=== PATIENT | female | born 1960 | race Hispanic/Latino ===

== ENCOUNTER 2016-06-01 01:51 | Inpatient (IN) | payer MEDICAID, MEDICARE ==
[2016-06-01] MEDS ORDERED: Sodium Chloride 0.9% 1,000 ML IV ONE (02:12)
[2016-06-01] MEDS ORDERED: Vancomycin 1gm in NS 250ml 250 ML IVPB STA (02:12)
[2016-06-01] MEDS ORDERED: Piperacill/Tazo 4.5gm in NS 100 ML IVPB STA (02:12)
[2016-06-01] MEDS ORDERED: Albuterol-Ipratrop 3 mg / 0.5 (3 ml) UD IH STA (02:23)
[2016-06-01] MEDS ORDERED: Albuterol 0.083% Inhal Sol (2.5 mg/3 mL) UD IH STA (02:23)
--- NOTE | 2016-06-01 02:27 | ED PDOC ---
Arrival/HPI - General Time Seen by Provider: 06/01/16 02:00 Historian: EMS EM Caveat: Acuity of Condition - Critical Care Critical Care Minutes: 60 minutes Critical Care Time: Excluding Proc Time - History of Present Illness Narrative History of Present Illness (Text): 06/01/16 02:08 55 year old female whose past medical history includes COPD presents to the Emergency department via EMS for cardiac arrest. Per EMS, patient was in cardiac arrest for 10 minutes prior to EMS arrival and 37 minutes while with EMS. Patient regained pulse at 1:47am. Per EMS, patient was asystole and given 4 rounds epinephrine. She was then vfib and shocked by EMS. EMS reports [employer] patient was given 300mg amiodarone IV, 4 duoneb, 2g magnesium sulfate, 50mg sodium bicarbonate. HPI and ROS limited due to patient's acuity of condition. PMD: Does not come to [place] Past Medical History - Provider Review Nursing Documentation Reviewed: Yes - Infectious Disease Hx of Infectious Diseases: MRSA - Tetanus Immunization Tetanus Immunization: Unknown - Past Medical History Past Medical History: No Previous - Cardiac Hx Hypertension: Yes - Pulmonary Hx Asthma: Yes Hx Bronchitis: Yes Hx Chronic Obstructive Pulmonary Disease (COPD): Yes Hx Emphysema: Yes - Neurological Hx Neurological Disorder: No - HEENT Hx HEENT Disorder: Yes Other/Comment: sinus sx x 2, removal of septum, removal of sinus tissue on L side - Renal Hx Renal Disorder: No - Endocrine/Metabolic Hx Hypothyroidism: Yes - Hematological/Oncological Hx Hepatitis B: No (states she had a false positive test x 1) - Integumentary Hx Dermatological Disorder: No - Musculoskeletal/Rheumatological Hx Falls: No Hx Rheumatoid Arthritis: Yes - Gastrointestinal Hx Diverticulitis: Yes - Genitourinary/Gynecological Hx Genitourinary Disorders: No - Psychiatric Hx Psychophysiologic Disorder: No Hx Anxiety: No Hx Bipolar Disorder: No Hx Depression: No Hx Emotional Abuse: No Hx Hallucinations: No Hx Panic Disorder: No Hx Post Traumatic Stress Disorder: No Hx Psychosis: No Hx Physical Abuse: No Hx Schizophrenia: No Hx Sexual Abuse: No Hx Substance Use: No - Surgical History Hx Appendectomy: Yes Hx Cholecystectomy: Yes Hx Orthopedic Surgery: Yes - Anesthesia Hx Anesthesia Reactions: No Hx Malignant Hyperthermia: No - Suicidal Assessment Feels Threatened In Home Enviroment: No Family/Social History - Physician Review Nursing Documentation Reviewed: Yes Family/Social History: Unknown Family HX Smoking Status: Former Smoker Hx Alcohol Use: No Hx Substance Use: No Hx Substance Use Treatment: No Allergies/Home Meds Allergies/Adverse Reactions: Allergies No Known Allergies Allergy (Verified 06/01/16 01:54) Review of Systems - Physician Review All systems were reviewed & negative as marked: Yes - Review of Systems Systems not reviewed;Unavailable: Acuity of Condition Respiratory: SOB Cardiovascular: Other (+cardiac arrest) Physical Exam Vital Signs Reviewed: Yes Vital Signs Temp Pulse Pulse Resp BP Pulse Ox 06/01/16 03:37 109 H 18 144/74 100 06/01/16 03:30 97.9 F 06/01/16 02:10 110 H 06/01/16 01:55 101 H 20 49/24 L Temperature: Afebrile Blood Pressure: Hypotensive Pulse: Tachycardic Respiratory Rate: Normal Appearance: Positive for: Non-Toxic Pain Distress: None - Systems Exam Head: Present: Atraumatic, Normocephalic Conjunctiva: Present: Normal Mouth: Present: Moist Mucous Membranes Neck: Present: Normal Range of Motion Respiratory/Chest: Present: Good Air Exchange, Wheezes (bilateral), Other (+6.5 ET tube with good condensation). No: Respiratory Distress, Accessory Muscle Use , Rales, Rhonchi Cardiovascular: Present: Tachycardic, Other (+faint right femoral pulse). No: Murmurs, Rub, Gallop Abdomen: Present: Normal Bowel Sounds. No: Tenderness, Distention, Peritoneal Signs, Rebound, Guarding Back: Present: Normal Inspection Upper Extremity: Present: Normal Inspection. No: Cyanosis, Edema Lower Extremity: Present: Normal Inspection. No: Edema Neurological: Present: GCS=15, CN II-XII Intact Skin: Present: Warm, Dry, Normal Color. No: Rashes Medical Decision Making ED Course and Treatment: 06/01/16 02:40 Impression: 55 year old female presents for cardiac arrest. Patient hypotensive, tachycardic , faint right femoral pulse, wheezes b/l, ET tube in place with fair air entry. Differential Diagnosis included but are not limited to: Plan: --EKG --Chest X-ray --procalcitonin serum --albuterol, duoneb, solumedrol, vancomycin, zosyn --blood culture, urine culture -- Reassess and disposition Prior Visits: Notes and results from previous visits were reviewed. Progress Notes: 06/01/16 02:[address] Quijano, loom doffer, who accepted her to ICU. 06/01/16 03:02 Patient's eyes opening and twitching as her upper body twitches every 5-10 seconds. 2mg Narcan IV given and soon she started getting b/l pupil dilation. 2mg ativan IV given for twitching episodes which helped resolve twitches moderately. Patient on versed drip. Discussed with family who state patient has been experiencing shortness of breath and cough for 4 days. [place] [facility] [place] apparently treated for a lung infection. Family states patient's breathing has been worsening and they asked patient to come to hospital but patient didn't want to come. They are unsure if she took benzos at home and are concerned because patient has a history of overdose. Also, they report she took a whole bottle of cough syrup with codeine. 06/01/16 03:10 Patient's pH low and treated with Bicarb amps x 2. Patient on ventilator of TV 500, RR 18, 100% reduced to 60% FiO2 after ABG, Peep 5. Patient receiving continues IVF and is currently on Levophed titrated. 06/01/16 04:15 Spoke to Bib (gelatin powder mixer) who recommended repeating EKG because patient was given sodium bicarbonate to evaluate QRS response. He also recommends 4 hr repeat LFTs and Acetaminophen level. Patient is already in the ICU, Dr. Quijano aware of plan and will repeat EKG. - Critical Care Critical Care Minutes: 60 minutes - Lab Interpretations Lab Results: 06/01/16 02:30 06/01/16 02:30 Lab Results 06/01/16 02:30: WBC 22.2 H D, RBC 3.66, Hgb 10.8 L, Hct 35.3 L, MCV 96.4, MCH 29.5, MCHC 30.6 L, RDW 15.8 H, Plt Count 432, MPV 9.2, Gran % 60.9, Lymph % ( Auto) 30.5, [place] % (Auto) 5.7, Eos % (Auto) 2.5, Baso % (Auto) 0.4, Gran # 13.54 H, Lymph # 6.8 H, [place] # 1.3 H, Eos # 0.6, Baso # 0.09, PT 12.1 H, INR 1.12 H, APTT 32.0 H, pCO2 71 H*, pO2 39, HCO3 18.8 L, ABG pH 7.03 L*, ABG Total CO2 21.0 L, ABG O2 Saturation 100.3 H, ABG O2 Content 16.8, ABG Base Excess - 12.5 L, ABG Hemoglobin 11.3 L, ABG Carboxyhemoglobin 2.1 H, POC ABG HHb ( Measured) -0.3 L, ABG Methemoglobin 1.3, ABG O2 Capacity 16.7, VBG pH 6.92 L*, VBG pCO2 101.0 H*, VBG HCO3 20.7 L, VBG Total CO2 23.8, VBG O2 Sat (Calc) 60.4, VBG Base Excess -13.9 L, VBG Potassium 5.8 H, Hgb O2 Saturation 97.0, Glucose 300 H, Lactate 9.5 H*, FiO2 21.0, Sodium 141.0, Potassium 5.5 H, Chloride 102.0 , Carbon Dioxide 24, Anion Gap 21 H, BUN 14, Creatinine 1.7 H, Est GFR ( Amer) 38, Est GFR (Non-Af Amer) 31, Random Glucose 285 H, Calcium 9.2, Phosphorus 12.4 H, Magnesium 3.6 H, Total Bilirubin 0.5, AST 131 H, ALT 48, Alkaline Phosphatase 130, Troponin I 0.06 D, NT-Pro-B Natriuret Pep 85.1, Total Protein 6.4, Albumin 3.5, Globulin 2.9, Albumin/Globulin Ratio 1.2, Venous Blood Potassium 5.8 H, Salicylates < 1 L, Acetaminophen < 10.0 L, Alcohol , Quantitative < 10 I have reviewed the lab results: Yes - RAD Interpretation Narrative RAD Interpretations (Text): 06/01/16 02:42 Chest X-ray Impression as read by ED physician: ET tube above jose, no PNA Radiology Orders: 06/01/16 02:12 CHEST PORTABLE [RAD] Stat Media Executive: ED Physician, Radiologist - EKG Interpretation EKG Interpretation (Text): 06/01/16 02:42 EKG: Ordered, reviewed, and independently interpreted the EKG. Rate : 110 BPM Rhythm : sinus tachycardia Interpretation : perfusion wave complex; RBBB Interpreted by ED Physician: Yes Type: 12 lead EKG - Medication Orders Current Medication Orders: Norepinephrine Bitartrate 4 mg (/ Sodium Chloride) 254 mls @ 19.05 mls/hr IV .[id number] PRN; Protocol; 5 MCG/MIN PRN Reason: TITRATE PER MD ORDER Last Admin: 06/01/16 03:19 Dose: 19.05 MLS/HR Titration Intervention Document 06/01/16 03:19 RD (Rec: 06/01/16 03:19 RD [id number]) Titration Intake Container Volume 254 Titration Dosing Titration Dose 5 IV Rate 19.05 Intake/Decrease Start eMAR Start Stop Document 06/01/16 03:19 RD (Rec: 06/01/16 03:19 RD [id number]) Intravenous Solution Start Date 06/01/16 Start Time 02:00 Midazolam 100 mg/100ml in NS (Midazolam 100 Mg/100ml In Ns) 100 mls @ 1 mls/hr IV .Q24H PRN; Protocol; 1 MG/HR PRN Reason: Sedation Last Admin: 06/01/16 03:10 Dose: 1 MLS/HR Titration Intervention Document 06/01/16 03:10 RD (Rec: 06/01/16 03:13 RD [id number]) Titration Intake Container Volume 100 Titration Dosing Titration Dose 1 IV Rate 1 Intake/Decrease Start eMAR Start Stop Document 06/01/16 03:10 RD (Rec: 06/01/16 03:13 RD [id number]) Intravenous Solution Start Date 06/01/16 Start Time 03:10 Sodium Bicarbonate 50 meq/ (Sodium Chloride) 1,050 mls @ 125 mls/hr IV .Q8H24M YASSINE Vancomycin HCl (Vancomycin 1gm) 250 mls @ 167 mls/hr IVPB Q12H YASSINE PRN Reason: Protocol Piperacillin Sod/Tazobactam Sod (Zosyn 3.375 In Ns 100ml) 100 mls @ 200 mls/hr IVPB Q6H YASSINE PRN Reason: Protocol Stop: 06/01/16 16:29 Discontinued Medications Albuterol Sulfate (Albuterol 0.083% Inhal Yesenia (2.5 Mg/3 Ml) Ud) 2.5 mg IH STAT STA Stop: 06/01/16 02:24 Last Admin: 06/01/16 01:55 Dose: 2.5 MG Albuterol/Ipratropium (Duoneb 3 Mg/0.5 Mg (3 Ml) Ud) 3 ml IH STAT STA Stop: 06/01/16 02:24 Last Admin: 06/01/16 01:51 Dose: 3 ML Sodium Chloride (Sodium Chloride 0.9%) 1,000 mls @ 2,000 mls/hr IV .Q30M ONE Stop: 06/01/16 02:41 Last Admin: 06/01/16 01:51 Dose: 2,000 MLS/HR eMAR Start Stop Document 06/01/16 01:51 RD (Rec: 06/01/16 03:21 RD [id number]) Intravenous Solution Start Date 06/01/16 Start Time 01:51 Piperacillin Sod/Tazobactam Sod (Zosyn 4.5 Gm In Ns 100ml) 100 mls @ 200 mls/ hr IVPB STAT STA PRN Reason: Protocol Stop: 06/01/16 02:41 Last Admin: 06/01/16 03:38 Dose: 200 MLS/HR eMAR Start Stop Document 06/01/16 03:38 RD (Rec: 06/01/16 03:38 RD [id number]) Intravenous Solution Start Date 06/01/16 Start Time 03:38 End Date 06/01/16 End time 04:08 Total Infusion Time 30 Vancomycin HCl (Vancomycin 1gm) 250 mls @ 167 mls/hr IVPB STAT STA PRN Reason: Protocol Stop: 06/01/16 03:41 Sodium Chloride 2,180 ml/ IV (SUPPLIES) 2,180 mls @ 4,354.5 mls/hr IV ONCE ONE PRN Reason: 60 ML/KG/HR Stop: 06/01/16 02:48 Last Admin: 06/01/16 03:23 Dose: 4,354.5 MLS/HR eMAR Start Stop Document 06/01/16 03:23 RD (Rec: 06/01/16 03:24 RD [id number]) Intravenous Solution Start Date 06/01/16 Start Time 03:24 Lorazepam (Ativan) 2 mg IVP ONCE ONE PRN Reason: Protocol Stop: 06/01/16 02:57 Last Admin: 06/01/16 03:04 Dose: 2 MG Behavioural Document 06/01/16 03:04 RD (Rec: 06/01/16 03:26 RD [id number]) Maintenance Maintenance Dose Yes IVP Administration Document 06/01/16 03:04 RD (Rec: 06/01/16 03:26 RD [id number]) Charges for Administration # of IVP Administrations 1 Lorazepam (Ativan) 2 mg IVP ONCE ONE PRN Reason: Protocol Stop: 06/01/16 03:38 Last Admin: 06/01/16 03:41 Dose: 2 MG Behavioural Document 06/01/16 03:41 RD (Rec: 06/01/16 03:42 RD [id number]) Maintenance Maintenance Dose Yes IVP Administration Document 06/01/16 03:41 RD (Rec: 06/01/16 03:42 RD [id number]) Charges for Administration # of IVP Administrations 1 Methylprednisolone (Solu-Medrol) 125 mg IVP STAT STA Stop: 06/01/16 02:15 Last Admin: 06/01/16 01:51 Dose: 125 MG IVP Administration Document 06/01/16 01:51 RD (Rec: 06/01/16 03:20 RD [id number]) Charges for Administration # of IVP Administrations 1 Naloxone HCl (Narcan) 2 mg IVP STAT STA Stop: 06/01/16 02:49 Last Admin: 06/01/16 03:25 Dose: Naloxone HCl (Narcan) Confirm Administered Dose 2 mg .ROUTE .STK-MED ONE Stop: 06/01/16 02:54 Last Admin: 06/01/16 02:50 Dose: 2 MG Sodium Bicarbonate (Sodium Bicarbonate (8.4%) 50 Meq Syringe) 50 meq IVP ONCE STA Stop: 06/01/16 03:06 Last Admin: 06/01/16 03:42 Dose: 50 MEQ IVP Administration Document 06/01/16 03:42 RD (Rec: 06/01/16 03:42 RD [id number]) Charges for Administration # of IVP Administrations 1 - Procedure PROCEDURE NOTE (Text): 06/01/16 04:12 PROCEDURE: CENTRAL LINE PLACEMENT Performed by the emergency provider Time: 02:00 Consent: Discussion of the risks, benefits, and alternatives to the procedure, along with informed consent was precluded by the urgency of the procedure and the patient condition. Timeout: A timeout to verify the correct patient, procedure, and site was performed. Indication: Cardiac arrest Anesthesia:none Skin Preparation: Hand hygiene performed prior to central venous catheter insertion. Sterile field, sterile drape, sterile technique, and cap and gown were used. The area was cleansed with 2% Chlorhexidine. Patient position: supine Location: right femoral Ultrasound guidance: No Technique: The landmarks for the line placement were identified. The vessel was cannulated and a non-tunneled femoral triple lumen was placed using the Seldinger technique. Successful placement: Yes. Line sutured and appropriate dressing applied. Assessment: Good patency and blood return through all three lumens. The ports were appropriately flushed. Post-procedure: Patient tolerated the procedure well with no immediate complications. - Scribe Statement The provider has reviewed the documentation as recorded by the Scribe Catrina Vieyra Provider Scribe Attestation: All medical record entries made by the Scribe were at my direction and personally dictated by me. I have reviewed the chart and agree that the record accurately reflects my personal performance of the history, physical exam, medical decision making, and the department course for this patient. I have also personally directed, reviewed, and agree with the discharge instructions and disposition. Disposition/Present on Arrival - Present on Arrival Any Indicators Present on Arrival: No History of DVT/PE: No History of Uncontrolled Diabetes: No Urinary Catheter: Yes (inserted in er) History Surgical Site Infection Following: None - Disposition Have Diagnosis and Disposition been Completed?: Yes Diagnosis: Chronic obstructive pulmonary disease with acute exacerbation, Cardiac arrest, Sepsis Disposition: HOSPITALIZED Disposition Time: 02:38 Patient Plan: Admission Patient Problems: Current Active Problems Problem Status Diagnosed Cardiac arrest Acute Chronic obstructive pulmonary disease with acute exacerbation Acute Sepsis Acute Condition: CRITICAL
[2016-06-01 02:37] LABS: ARTERIAL BLOOD GAS HCO3 18.8 mmol/L (21-28); ARTERIAL BLOOD GAS O2 CAPACITY 16.7 mL/dl (16-24); ARTERIAL BLOOD GAS O2 CONTENT 16.8 ML/dl (15-23); CARBOXYHEMOGLOBIN 2.1 % (0.5-1.5); HHB -0.3 % (0-5); METHEMOGLOBIN 1.3 % (0.0-3.0)
[2016-06-01 02:39] LABS: ADD MANUAL DIFF? NO; ARTERIAL BLOOD GAS PH 7.03 (7.35-7.45)
[2016-06-01 02:43] LABS: VENOUS BLOOD GAS BASE EXCESS -13.9 mmol/L (0.0-2.0)
[2016-06-01 02:46] LABS: VENOUS BLOOD PH 6.92 (7.32-7.43)
[2016-06-01 02:47] LABS: BASO # 0.09 K/mm3 (0.0-2.0); BASO % 0.4 % (0.0-3.0); EOS # 0.6 (0.0-0.7); EOS % 2.5 % (1.5-5.0); GRAN # 13.54 (1.4-6.5); GRAN % 60.9 % (50.0-68.0); HEMATOCRIT 35.3 % (36.0-48.0); LYMPH # 6.8 (1.2-3.4); LYMPH % 30.5 % (22.0-35.0); MEAN CELL VOLUME 96.4 fL (80.0-105.0); MEAN CORPUSCULAR HEMOGLOBIN 29.5 pg (25.0-35.0); MEAN CORPUSCULAR HGB CONC 30.6 g/dl (31.0-37.0); MEAN PLATELET VOLUME 9.2 fl (7.0-11.0); MONO # 1.3 (0.1-0.6); MONO % 5.7 % (1.0-6.0); PLATELET COUNT 432 10^3/uL (120.0-450.0); RED CELL DISTRIBUTION WIDTH 15.8 % (11.5-14.5); WHITE BLOOD COUNT 22.2 10^3/ul (4.5-11.0)
[2016-06-01] MEDS ORDERED: Naloxone 0.4 mg/ml Inj (Adult) IVP STA (02:48)
[2016-06-01] MEDS ORDERED: Naloxone 0.4 mg/ml Inj (Adult) ONE (02:53)
[2016-06-01 02:56] LABS: ALB/GLOB RATIO 1.2 (1.1-1.8); BILIRUBIN,TOTAL 0.5 mg/dL (0.2-1.3); CALCIUM 9.2 mg/dL (8.4-10.5); MAGNESIUM 3.6 mg/dL (1.7-2.2); PHOSPHOROUS 12.4 mg/dL (2.5-4.5); POTASSIUM 5.5 mmol/L (3.6-5.0); TOTAL PROTEIN 6.4 g/dL (5.8-8.3)
[2016-06-01] MEDS ORDERED: Sodium Bicarbonate (8.4%) 50 Meq Syringe IVP STA (03:05)
[2016-06-01 03:07] LABS: TROPONIN I 0.06 ng/mL
[2016-06-01] MEDS: Midazolam 100 mg/100ml in NS 100 ML IV PRN (03:10)
[2016-06-01 03:22] LABS: INR 1.12 (0.93-1.08)
[2016-06-01 03:28] LABS: URINE BILIRUBIN NEGATIVE (NEGATIVE); URINE BLOOD LARGE (NEGATIVE); URINE GLUCOSE (UA) NEGATIVE (NEGATIVE); URINE KETONE NEGATIVE (NEGATIVE); URINE LEUKOCYTE ESTERASE NEGATIVE Leu/uL (NEGATIVE); URINE PROTEIN >=300 mg/dL (<30 mg/dL); URINE UROBILINOGEN 0.2 E.U./dL (<1 E.U./dL)
[2016-06-01 03:29] LABS: URINE APPEARANCE TURBID (CLEAR); URINE COLOR YELLOW (YELLOW)
[2016-06-01 03:58] LABS: URINE BACTERIA MOD (NEG); URINE RBC 20 - 25 /hpf (0-2); URINE WBC 15 - 20 /hpf (0-6)
--- NOTE | 2016-06-01 04:19 | CP.PCM.HP ---
<Gris Sandy - Last Filed: 06/01/16 05:06> History of Present Illness - History of Present Illness History of Present Illness: PGY [address] Quijano 55 year old female, whose past medical history includes COPD and Hx of overdose and suicide attempt, presents to the Emergency department via EMS for cardiac arrest. Per EMS, patient was in cardiac arrest for 10 minutes prior to EMS arrival and 37 minutes while with EMS. Patient regained pulse at 1:47am. Per EMS , patient was asystole and given 4 rounds epinephrine. She was then vfib and shocked by EMS. 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 ROS limited due to patient's acuity of condition. HPI was provided by family Family states that pt has stayed at [facility] [place] [facility] 1-2 month ago for COPD exacerbation. 2 weeks ago she had finished a course of augmentin and azithromax for cough. For the past 3 days, she had SOB, yellowish phlegm, and fever and chills. Tonight, pt complained sudden worsening of SOB to . heard a "thump" in the bedroom, and found laying on the floor, unconscious. Family found that pt has finished a bottle of codeine cough medicine in 2 days, and there is an empty bottle of tamezepam underneath pt's bed. At the ED, given duoneb, solumedrol, 1 amp bicarb, narcan. After narcan, pt pupils change from dilated and nonreactive to light to regaining sluggish reactivity. Pt was seen jerking, 2 ativan x 2 were given. Chest X-ray Impression as read by ED physician: ET tube above jose, no PNA EKG sinus tachycardia @ 110. Perfusion wave complex; RBBB Norepinephrine Bitartrate PRN 5 MCG/MIN Code sepsis was called. PMH COPD deflected nasal septum Hx MRSA Questionable Hepatitis B: states she had a false positive test x 1 Rheumatoid Arthritis Hx Diverticulitits Hx overdose Hx suicidal attempt PSH Sinus surgeries x 2, removal of septum, removal of sinus tissue on L side Appendectomy Cholecystectomy Orthopedic Surgery SH Former smoker Denies alcohol coccaine use in the past All NKDA Med See MAR PMD Dr. Carleen Peña Present on Admission - Present on Admission Any Indicators Present on Admission: No Past Patient History - Infectious Disease Hx of Infectious Diseases: MRSA - Tetanus Immunizations Tetanus Immunization: Unknown - Past Medical History & Family History Past Medical History?: Yes - Past Social History Smoking Status: Former Smoker - CARDIAC Hx Hypertension: Yes - PULMONARY Hx Asthma: Yes Hx Bronchitis: Yes Hx Chronic Obstructive Pulmonary Disease (COPD): Yes Hx Emphysema: Yes - NEUROLOGICAL Hx Neurological Disorder: No - HEENT Hx HEENT Problems: Yes Other/Comment: sinus sx x 2, removal of septum, removal of sinus tissue on L side - RENAL Hx Chronic Kidney Disease: No - ENDOCRINE/METABOLIC Hx Hypothyroidism: Yes - HEMATOLOGICAL/ONCOLOGICAL Hx Hepatitis B: No (states she had a false positive test x 1) - INTEGUMENTARY Hx Dermatological Problems: No - MUSCULOSKELETAL/RHEUMATOLOGICAL Hx Falls: No Hx Rheumatoid Arthritis: Yes - GASTROINTESTINAL Hx Diverticulitis: Yes - GENITOURINARY/GYNECOLOGICAL Hx Genitourinary Disorders: No - PSYCHIATRIC Hx Psychophysiologic Disorder: No Hx Anxiety: No Hx Bipolar Disorder: No Hx Depression: No Hx Emotional Abuse: No Hx Hallucinations: No Hx Panic Symptoms: No Hx Post Traumatic Stress Disorder: No Hx Psychosis: No Hx Physical Abuse: No Hx Schizophrenia: No Hx Sexual Abuse: No Hx Substance Use: No - SURGICAL HISTORY Hx Appendectomy: Yes Hx Cholecystectomy: Yes Hx Orthopedic Surgery: Yes - ANESTHESIA Hx Anesthesia Reactions: No Hx Malignant Hyperthermia: No Meds Allergies/Adverse Reactions: Allergies Allergy/AdvReac Type Severity Reaction Status Date / Time No Known Allergies Allergy Verified 06/01/16 01:54 Physical Exam - Constitutional Additional comments: Intubated - Head Exam Head Exam: ATRAUMATIC, NORMOCEPHALIC - Eye Exam Additional comments: sluggish reactive to light b/l - ENT Exam ENT Exam: Mucous Membranes Moist - Neck Exam Additional comments: supple. no jvd - Respiratory Exam Respiratory Exam: Clear to Auscultation Bilateral, NORMAL BREATHING PATTERN. absent: Rales, Rhonchi, Wheezes - Cardiovascular Exam Cardiovascular Exam: REGULAR RHYTHM, +S1, +S2. absent: Systolic Murmur - GI/Abdominal Exam GI & Abdominal Exam: Hypoactive Bowel Sounds, Soft. absent: Distended, Rigid - Extremities Exam Extremities exam: Positive for: pedal edema (slight), pedal pulses present - Skin Skin Exam: Dry, Warm Results - Vital Signs Recent Vital Signs: Last Vital Signs Temp Pulse 109 H 03/18/17 03:37 Resp 18 06/01/16 03:37 BP 144/74 06/01/16 03:37 Pulse Ox 100 06/01/16 03:37 - Labs Result Diagrams: 06/01/16 02:30 06/01/16 02:30 Labs: Laboratory Results - last 24 hr 06/01/16 03:00 Urine Color Yellow Urine Appearance Turbid Urine pH 6.0 Ur Specific Ramer >= 1.030 Urine Protein >=300 H Urine Glucose (UA) Negative Urine Ketones Negative Urine Blood Large H Urine Nitrate Negative Urine Bilirubin Negative Urine Urobilinogen 0.2 Ur Leukocyte Esterase Negative Urine RBC 20 - 25 Urine WBC 15 - 20 Ur Epithelial Cells 4 - 5 Urine Bacteria Mod Hyaline Casts 0 - 2 Assessment & Plan - Assessment and Plan (Free Text) Plan: Assessment: Shock - cardiogenic and/or septic. post-cardiac arrest. sepsis. seizure. suspected overdose. Neuro: Found unconscious in the field suspected seizure; intubated on versed Suspected Overdose codeine and benzo Urine tox ____ pending Negative serum salicylate, acetaminophen, alcohol Hx overdose & suidical attempt Hold xanax CT head negative for bleed Neurol consult Poison control contacted CV: post-cardiac arrest Not candidate for hypothermic protocol due to sepsis serial trops and ekg Cardiac consult Levophed drip PRN goal MAP > 65 Pulm: Intubated. CXR no active disease Maintain [id number] IV solmedrol 40 bid and duoneb q 6 tiffanie, q3 prn Home med: Advair GI: Protonix Heme: Anemic at 10.8 Heparin q8 Renal/: JB NS with 1 amp bicarb @ 125 Monitor Urine output Continue to monitor electrolytes will replace/replete as needed Endo: Accu ck q6 for now ID: Code sepsis at ED; Leukocytosis 22.2/tachy at 110/MAP 32; lactate 9.5 ABG with lactate at 5am Urine cx, blood cx pending. + UTI Possible source: urine. lung. No chronic skin breakdown Procalc Zosyn 3.375 x 1 and vanco x 1 at ED; will continue the same antibiotics ID consult MRSA screen S/R/D/w Dr. Quijano - Date & Time Date: 06/01/16 Time: 04:29 <Nakul Quijano MD - Last Filed: 03/18/17 08:22> Results - Vital Signs Recent Vital Signs: Last Vital Signs Temp 97.9 F 06/01/16 05:00 Pulse 125 H 06/01/16 05:00 Resp 21 06/01/16 05:00 BP 128/64 06/01/16 05:00 Pulse Ox 100 06/01/16 03:37 - Labs Result Diagrams: 06/01/16 06:46 06/01/16 02:30 Labs: Laboratory Results - last 24 hr 06/01/16 06/01/16 06/01/16 03:00 06:46 07:00 WBC 19.9 H RBC 3.82 Hgb 11.2 L Hct 35.9 L MCV 94.0 MCH 29.3 MCHC 31.2 RDW 15.9 H Plt Count 563 H MPV 9.0 pO2 35 VBG pH 7.24 L VBG pCO2 61.0 H VBG HCO3 26.1 VBG Total CO2 28.0 VBG O2 Sat (Calc) 59.3 VBG Base Excess -2.5 L VBG Potassium 4.6 Sodium 142.0 Chloride 108.0 H Glucose 260 H Lactate 2.4 H FiO2 21.0 POC Glucose (mg/dL) Lactate Dehydrogenase 2512 H Total Creatine Kinase 2304 H CK-MB (CK-2) 19.4 H CK-MB (CK-2) % 0.8 L Troponin I 1.24 H* D Venous Blood Potassium 4.6 Urine Color Yellow Urine Appearance Turbid Urine pH 6.0 Ur Specific Ramer >= 1.030 Urine Protein >=300 H Urine Glucose (UA) Negative Urine Ketones Negative Urine Blood Large H Urine Nitrate Negative Urine Bilirubin Negative Urine Urobilinogen 0.2 Ur Leukocyte Esterase Negative Urine RBC 20 - 25 Urine WBC 15 - 20 Ur Epithelial Cells 4 - 5 Urine Bacteria Mod Hyaline Casts 0 - 2 Urine Opiates Screen Positive H Urine Methadone Screen Negative Ur Barbiturates Screen Negative Ur Phencyclidine Scrn Negative Ur Amphetamines Screen Negative U Benzodiazepines Scrn Positive H U Oth Cocaine Metabols Positive H U Cannabinoids Screen Negative 06/01/16 07:27 WBC RBC Hgb Hct MCV MCH MCHC RDW Plt Count MPV pO2 VBG pH VBG pCO2 VBG HCO3 VBG Total CO2 VBG O2 Sat (Calc) VBG Base Excess VBG Potassium Sodium Chloride Glucose Lactate FiO2 POC Glucose (mg/dL) 221 H Lactate Dehydrogenase Total Creatine Kinase CK-MB (CK-2) CK-MB (CK-2) % Troponin I Venous Blood Potassium Urine Color Urine Appearance Urine pH Ur Specific Ramer Urine Protein Urine Glucose (UA) Urine Ketones Urine Blood Urine Nitrate Urine Bilirubin Urine Urobilinogen Ur Leukocyte Esterase Urine RBC Urine WBC Ur Epithelial Cells Urine Bacteria Hyaline Casts Urine Opiates Screen Urine Methadone Screen Ur Barbiturates Screen Ur Phencyclidine Scrn Ur Amphetamines Screen U Benzodiazepines Scrn U Oth Cocaine Metabols U Cannabinoids Screen Attending/Attestation - Attestation I have personally seen and examined this patient.: Yes I have fully participated in the care of the patient.: Yes I have reviewed all pertinent clinical information: Yes Notes (Text): 06/01/16 08:07 -I agree with the above H&P completed by the resident physician with the following additions and/or changes: -The patient is a 55 year old woman with a history of COPD and history of suicide attempt, who suddenly developed SOB last night, quickly followed by unconsciousness. EMS found the patient to be in asystole and therefore ACLS protocol was initiated. She was intubated in the field. She also developed ventricular fibrillation and was therefore shocked once and given a one time IV dose of Amioadarone in the field. Of note, due to the patient's condition, details of the history was obtained from her who was at bedside. According to the , the patient recently ingested 1 bottle of codeine cough syrup over the last 2 days and he also found an empty bottle of Temazepam under her bed recently. In addition, admission labs also show that her urine toxicology is positive for cocaine. She was also found have hypercapneic respiratory acidosis as well as a WBC=22 on ED labs. In addition, she was hypotensive in the ED and therefore Levophed was started after placement of right femoral central venous line. Lastly, while in the ED, here pupils were asymmetric and she was noted to be having a possible seizure and therefore Versed drip and IV Ativan x 1 were given. Her acute problems include the followin. Shock (cardiac and/or septic) 2. Overdose (codeine and benzo) 3. Cocaine Intoxication 4. JB 5. Elevated Troponin (demand ischemia vs ACS) 6. ?Suicide Attempt -She has been started on aggressive IVF's with supplemental bicarbonate and empiric IV Vanco and Zosyn. Cardiology, ID and neurology consults have been placed. Serial trop's and EKG's and a repeat acetaminophen level and LFT's have been ordered. Also, poison control was made aware of the patient's case by the ED. 06/01/16 08:13 06/01/16 08:17
[2016-06-01] MEDS ORDERED: Albuterol-Ipratrop 3 mg / 0.5 (3 ml) UD IH PRN (04:54)
--- NOTE | 2016-06-01 04:58 | CT ---
EXAM: CT Head Without Intravenous Contrast. CLINICAL HISTORY: 55 years old, female; Signs and symptoms; Other: Cardiac arrest TECHNIQUE: Axial computed tomography images of the head/brain without intravenous contrast. This CT exam was performed using one or more of the following dose reduction techniques: automated exposure control, adjustment of the mA and/or kV according to patient size, and/or use of iterative reconstruction technique. EXAM DATE/TIME: Exam ordered 06/01/2016 3:33 AM COMPARISON: No relevant prior studies available. FINDINGS: Limitations: The study is greatly limited by patient motion and streak artifacts Brain: There is poor bolanos-white differentiation, it is not possible to tell whether this is related to the extensive motion versus ischemic changes. The ventricles are within normal limits. The basal cisterns appear patent although questionably asymmetric. No hemorrhage within limits of the study. Ventricles: See above. Bones/joints: Please note evaluation of the skull base is very limited related to patient motion. The zygomatic arches appear bilaterally intact. Soft tissues: Unremarkable. Sinuses: There is near-complete opacification of the right maxillary sinus, suspicious for acute sinusitis. Patient is status post procedure left medial maxillary wall, with extensive mucoperiosteal disease of the left maxillary sinus. Noting significant limitations related to extensive patient motion, favor that there is extensive opacification of the ethmoids. Very limited evaluation of the frontal sinuses. Mucoperiosteal thickening of the left greater than right sphenoid sinus. Mastoid air cells: Favor that the mastoid air cells are clear. Tubes, lines and devices: There is an endotracheal tube, the tip of which is not evaluated on this study. Other findings: The pterygoid plates appear bilaterally intact. IMPRESSION: Study is greatly limited by extensive motion and streak artifact. Extensive ischemic changes not excluded on this study. Within limits of the study it is favored that there is no acute hemorrhage. If it will alter management, repeat imaging with less patient motion is likely to provide substantially better detail No previous for review. Extensive disease of the paranasal sinuses with acute sinusitis strongly suspected. Endotracheal tube the tip of which is not fully evaluated.
[2016-06-01 06:14] VITALS: BMI 29.4
[2016-06-01 06:58] LABS: HEMATOCRIT 35.9 % (36.0-48.0); MEAN CORPUSCULAR HEMOGLOBIN 29.3 pg (25.0-35.0); MEAN CORPUSCULAR HGB CONC 31.2 g/dl (31.0-37.0); PLATELET COUNT 563 10^3/uL (120.0-450.0); RED CELL DISTRIBUTION WIDTH 15.9 % (11.5-14.5); WHITE BLOOD COUNT 19.9 10^3/ul (4.5-11.0)
[2016-06-01 07:02] LABS: VENOUS BLOOD GAS BASE EXCESS -2.5 mmol/L (0.0-2.0); VENOUS BLOOD PH 7.24 (7.32-7.43)
[2016-06-01 07:04] LABS: ADD MANUAL DIFF? YES
[2016-06-01 07:42] LABS: TROPONIN I 1.24 ng/mL
[2016-06-01] MEDS ORDERED: Budesonide 0.5 mg/2 ml Inhal Susp UD IH SCH (08:00)
[2016-06-01] MEDS ORDERED: Arformoterol 15 mcg/2 ml Inh Sol IH SCH (08:00)
[2016-06-01 09:05] LABS: BAND 4 % (0-2); NEUTROPHIL 84 % (50.0-70.0)
[2016-06-01 09:06] LABS: ANISOCYTOSIS 1+; GIANT PLATELETS PRESENT; HYPOCHROMIA 1+; LARGE PLATELETS PRESENT; OVALOCYTES SLIGHT; PLATELET ESTIMATE HIGH (NORMAL); TEAR DROP CELLS SLIGHT; TOXIC GRANULATION SLIGHT
[2016-06-01 09:07] LABS: POIKILOCYTOSIS SLIGHT
[2016-06-01 09:26] LABS: ALB/GLOB RATIO 1.2 (1.1-1.8); BILIRUBIN,TOTAL 1.3 mg/dL (0.2-1.3); CALCIUM 8.5 mg/dL (8.4-10.5); POTASSIUM 4.4 mmol/L (3.6-5.0); TOTAL PROTEIN 6.9 g/dL (5.8-8.3)
[2016-06-01] MEDS: Albuterol-Ipratrop 3 mg / 0.5 (3 ml) UD IH SCH ×3 (09:39→22:02)
[2016-06-01] MEDS: MethylPREDNISolone 40 mg Vial IVP SCH ×2 (09:46→21:46)
[2016-06-01] MEDS: Piperacillin/Tazobact 3.375 gm 100 ML IVPB SCH ×2 (10:10→16:49)
--- NOTE | 2016-06-01 10:15 | CARD ---
APPROVED REPORT EKG Measurement Heart [id number] <Conclusion> Sinus tachycardia Wide QRS with RBBB configuration, new STTW changes
--- NOTE | 2016-06-01 10:21 | CARD ---
APPROVED REPORT EKG Measurement Heart [id number] <Conclusion> Sinus tachycardia NSSTW changes C/W ECG earlier: the QRS has narroed and RBBB no longer present
--- NOTE | 2016-06-01 10:25 | RAD ---
HISTORY: Sepsis Patient COMPARISON: Chest x-ray performed 01/08/16 TECHNIQUE: Chest, one view. FINDINGS: Endotracheal tube terminates approximately 5.4 cm above the jose. LUNGS: No focal consolidation. Please note that chest x-ray has limited sensitivity for the detection of pulmonary masses. PLEURA: No significant pleural effusion identified. No definite pneumothorax . CARDIOVASCULAR: The cardiomediastinal silhouette appears within normal limits of size. OSSEOUS STRUCTURES: No acute osseous abnormality identified. VISUALIZED UPPER ABDOMEN: Unremarkable. OTHER FINDINGS: None. IMPRESSION: Endotracheal tube terminates approximately 5.4 cm above the jose.
[2016-06-01 10:28] LABS: ABG MECHANICAL RATE 10; ARTERIAL BLOOD GAS HCO3 20.2 mmol/L (21-28); ARTERIAL BLOOD GAS PH 7.28 (7.35-7.45); ATERIAL BLOOD GAS PEEP 5
[2016-06-01] MEDS ORDERED: Sodium Chloride 0.9% 1,000 ML IV STA (11:38)
--- NOTE | 2016-06-01 11:38 | CP.CCUPN ---
CCU Subjective - Physician Review Events Since Last Encounter (Free Text): 06/01/16 11:31 Received patient overnight. s/p cardiac arrest appx 35min down time till ROSC intubated seen to hav ebreakthrough seizures with foaming at the mouth and eye twitching. Not a hypothermia/ normothermia candidate secondary to sepsis as determined in the ER last night. On propofol , versed and Keppra load to start from seizure prophylaxis and sedation. PH improved 7.28. No mental status restored. CCU Objective - Vital Signs / Intake & Output Intake and Output (Last 8hrs): Intake & Output 05/31/16 06/01/16 06/01/16 22:59 06:59 14:59 Intake Total 2877 Output Total 170 Balance 2707 Weight 171 lb 4 oz Intake: IV 2477 versed 12 Levophed 90 NAHCO3 drip 375 Intake, Piggyback 150 Other 250 Output: Urine 170 Urethral (Rangel) 170 Other: Voiding Method Indwelling Catheter - Physical Exam Head: Positive for: Atraumatic, Normocephalic Pupils: Positive for: PERRL, Sluggish, Pinpoint (unequal pupil ) Extroacular Muscles: Positive for: EOMI Conjunctiva: Positive for: Normal Mouth: Positive for: Moist Mucous Membranes Neck: Positive for: Normal Range of Motion Respiratory/Chest: Positive for: Other (poor air exchange ) Cardiovascular: Positive for: Tachycardic, Other (+faint right femoral pulse). Negative for: Murmurs, Rub, Gallop Abdomen: Positive for: Normal Bowel Sounds. Negative for: Tenderness, Distention, Peritoneal Signs, Rebound, Guarding Back: Positive for: Normal Inspection Upper Extremity: Positive for: Normal Inspection. Negative for: Cyanosis, Edema Lower Extremity: Positive for: Normal Inspection, NORMAL PULSES. Negative for: Edema Neurological: Positive for: Other (no neurologicla function canbe determined a pt has been actively seizing. ) Skin: Positive for: Warm, Dry, Normal Color. Negative for: Rashes Psychiatric: Positive for: Alert, Normal Insight, Normal Concentration - Medications Active Medications: Active Medications Generic Name Dose Route Start Last Admin Trade Name Freq PRN Reason Stop Dose Admin Albuterol/Ipratropium 3 ml 06/01/16 08:00 06/01/16 09:39 Duoneb 3 Mg/0.5 Mg (3 Ml) Ud IH 3 ml [id number] YASSINE Administration Albuterol/Ipratropium 3 ml 06/01/16 04:54 Duoneb 3 Mg/0.5 Mg (3 Ml) Ud IH Q3 PRN Wheezing Arformoterol Tartrate 15 mcg 06/01/16 08:00 Brovana IH [id number] YASSNIE Budesonide 0.5 mg 06/01/16 08:00 06/01/16 09:39 Pulmicort Respules IH 0.5 mg [id number] YASSINE Administration Heparin Sodium (Porcine) 5,000 units 06/01/16 10:00 06/01/16 09:47 Heparin SC 5,000 units Q12 YASSINE Administration Protocol Norepinephrine Bitartrate 4 mg 254 mls @ 19.05 mls/hr 06/01/16 02:12 06/01/16 03:19 / Sodium Chloride IV 19.05 mls/hr .[id number] PRN Administration TITRATE PER MD ORDER Protocol 5 MCG/MIN Midazolam 100 mg/100ml in NS 100 mls @ 1 mls/hr 06/01/16 02:44 06/01/16 03:10 Midazolam 100 Mg/100ml In Ns IV 1 mls/hr .Q24H PRN Administration Sedation Protocol 1 MG/HR Sodium Bicarbonate 50 meq/ 1,050 mls @ 125 mls/hr 06/01/16 03:45 06/01/16 04:30 Sodium Chloride IV 125 mls/hr .[id number] YASSINE Administration Vancomycin HCl 250 mls @ 167 mls/hr 06/01/16 17:00 Vancomycin 1gm IVPB Q12H YASSINE Protocol Piperacillin Sod/Tazobactam Sod 100 mls @ 200 mls/hr 06/01/16 10:00 06/01/16 10 :10 Zosyn 3.375 In Ns 100ml IVPB 06/01/16 16:29 200 mls/hr Q6H YASSINE Administration Protocol Propofol 100 mls @ 2.33 mls/hr 06/01/16 07:32 06/01/16 07:57 Diprivan IV 2.33 mls/hr .Q24H PRN Administration TITRATE PER MD ORDER Protocol 5 MCG/KG/MIN Methylprednisolone 40 mg 06/01/16 10:00 06/01/16 09:46 Solu-Medrol IVP 40 mg Q12 YASSINE Administration Pantoprazole Sodium 40 mg 06/01/16 10:00 06/01/16 09:46 Protonix Inj IVP 40 mg DAILY YASSINE Administration - Patient Studies Lab Studies: Lab Studies 06/01/16 06/01/16 06/01/16 Range/Units 10:15 09:07 07:27 WBC (4.5-11.0) 10^3/ul RBC (3.5-6.1) 10^6/uL Hgb (12.0-16.0) gm/dL Hct (36.0-48.0) % MCV (80.0-105.0) fL MCH (25.0-35.0) pg MCHC (31.0-37.0) g/dl RDW (11.5-14.5) % Plt Count (120.0-450.0) 10^3/uL MPV (7.0-11.0) fl Neutrophils % (Manual) (50.0-70.0) % Band Neutrophils % (0-2) % Lymphocytes % (Manual) (22.0-35.0) % Monocytes % (Manual) (1.0-6.0) % Toxic Granulation Platelet Evaluation (NORMAL) Large Platelets Giant Platelets Hypochromasia Poikilocytosis (manual Anisocytosis (manual) Tear Drop Cells Ovalocytes pCO2 43 (35-45) mm/Hg pO2 256.0 H (80-100) mm/Hg HCO3 20.2 L (21-28) mmol/L ABG pH 7.28 L (7.35-7.45) ABG Total CO2 21.5 L (22-28) mmol.L ABG O2 Saturation 99.9 H (95-98) % ABG Base Excess -6.4 L (-2.0-3.0) mmol/L ABG Potassium 3.8 (3.6-5.2) mmol/L VBG pH (7.32-7.43) VBG pCO2 (40-60) VBG HCO3 (21-28) mmol/l VBG Total CO2 (22-28) mmol.L VBG O2 Sat (Calc) (40-65) % VBG Base Excess (0.0-2.0) mmol/L VBG Potassium (3.6-5.2) mmol/L Sodium 144.0 145 (132-148) mmol/L Chloride 117.0 H 105 (98-107) mmol/L Glucose 182 H (65-105) mg/dl Lactate 1.2 (0.7-2.1) mmol/L Mechanical Rate 10 FiO2 60.0 % Tidal Volume 440 PEEP 5 Potassium 4.4 (3.6-5.0) mmol/L Carbon Dioxide 28 (21-33) mmol/L Anion Gap 16 (10-20) BUN 24 H (7-21) mg/dL Creatinine 1.7 H (0.5-1.4) mg/dL Est GFR ( Amer) 38 Est GFR (Non-Af Amer) 31 POC Glucose (mg/dL) 221 H (65-110) mg/dL Random Glucose 214 H (70-110) mg/dL Calcium 8.5 (8.4-10.5) mg/dL Total Bilirubin 1.3 (0.2-1.3) mg/dL AST 293 H (15-39) U/L ALT 78 H (7-56) U/L Alkaline Phosphatase 150 H (38-133) U/L Lactate Dehydrogenase (333-699) U/L Total Creatine Kinase (35-230) U/L CK-MB (CK-2) (0.0-3.6) ng/mL CK-MB (CK-2) % (2.5-3.0) % Troponin I ng/mL Total Protein 6.9 (5.8-8.3) g/dL Albumin 3.7 (3.0-4.8) g/dL Globulin 3.2 gm/dL Albumin/Globulin Ratio 1.2 (1.1-1.8) Arterial Blood Potassium 3.8 (3.6-5.2) mmol/L Venous Blood Potassium (3.6-5.2) mmol/L Urine Color (YELLOW) Urine Appearance (CLEAR) Urine pH (4.7-8.0) Ur Specific [place] (1.005-1.035) Urine Protein (<30 mg/dL) mg/dL Urine Glucose (UA) (NEGATIVE) mg/dL Urine Ketones (NEGATIVE) mg/dL Urine Blood (NEGATIVE) Urine Nitrate (NEGATIVE) Urine Bilirubin (NEGATIVE) Urine Urobilinogen (<1 E.U./dL) E.U./dL Ur Leukocyte Esterase (NEGATIVE) Madie/uL Urine RBC (0-2) /hpf Urine WBC (0-6) /hpf Ur Epithelial Cells (0-5) /hpf Urine Bacteria (NEG) Hyaline Casts /hpf Urine Opiates Screen (NEGATIVE) Urine Methadone Screen (NEGATIVE) Acetaminophen < 10.0 L (10.0-20.0) ug/ml Ur Barbiturates Screen (NEGATIVE) Ur Phencyclidine Scrn (NEGATIVE) Ur Amphetamines Screen (NEGATIVE) U Benzodiazepines Scrn (NEGATIVE) U Oth Cocaine Metabols (NEGATIVE) U Cannabinoids Screen (NEGATIVE) 06/01/16 06/01/16 06/01/16 Range/Units 07:00 06:46 03:00 WBC 19.9 H (4.5-11.0) 10^3/ul RBC 3.82 (3.5-6.1) 10^6/uL Hgb 11.2 L (12.0-16.0) gm/dL Hct 35.9 L (36.0-48.0) % MCV 94.0 (80.0-105.0) fL MCH 29.3 (25.0-35.0) pg MCHC 31.2 (31.0-37.0) g/dl RDW 15.9 H (11.5-14.5) % Plt Count 563 H (120.0-450.0) 10^3/uL MPV 9.0 (7.0-11.0) fl Neutrophils % (Manual) 84 H (50.0-70.0) % Band Neutrophils % 4 H (0-2) % Lymphocytes % (Manual) 8 L (22.0-35.0) % Monocytes % (Manual) 4 (1.0-6.0) % Toxic Granulation Slight Platelet Evaluation High (NORMAL) Large Platelets Present Giant Platelets Present Hypochromasia 1+ Poikilocytosis (manual Slight Anisocytosis (manual) 1+ Tear Drop Cells Slight Ovalocytes Slight pCO2 (35-45) mm/Hg pO2 35 (80-100) mm/Hg HCO3 (21-28) mmol/L ABG pH (7.35-7.45) ABG Total CO2 (22-28) mmol.L ABG O2 Saturation (95-98) % ABG Base Excess (-2.0-3.0) mmol/L ABG Potassium (3.6-5.2) mmol/L VBG pH 7.24 L (7.32-7.43) VBG pCO2 61.0 H (40-60) VBG HCO3 26.1 (21-28) mmol/l VBG Total CO2 28.0 (22-28) mmol.L VBG O2 Sat (Calc) 59.3 (40-65) % VBG Base Excess -2.5 L (0.0-2.0) mmol/L VBG Potassium 4.6 (3.6-5.2) mmol/L Sodium 142.0 (132-148) mmol/L Chloride 108.0 H (98-107) mmol/L Glucose 260 H (65-105) mg/dl Lactate 2.4 H (0.7-2.1) mmol/L Mechanical Rate FiO2 21.0 % Tidal Volume PEEP Potassium (3.6-5.0) mmol/L Carbon Dioxide (21-33) mmol/L Anion Gap (10-20) BUN (7-21) mg/dL Creatinine (0.5-1.4) mg/dL Est GFR ( Amer) Est GFR (Non-Af Amer) POC Glucose (mg/dL) (65-110) mg/dL Random Glucose (70-110) mg/dL Calcium (8.4-10.5) mg/dL Total Bilirubin (0.2-1.3) mg/dL AST (15-39) U/L ALT (7-56) U/L Alkaline Phosphatase (38-133) U/L Lactate Dehydrogenase 2512 H (333-699) U/L Total Creatine Kinase 2304 H (35-230) U/L CK-MB (CK-2) 19.4 H (0.0-3.6) ng/mL CK-MB (CK-2) % 0.8 L (2.5-3.0) % Troponin I 1.24 H* D ng/mL Total Protein (5.8-8.3) g/dL Albumin (3.0-4.8) g/dL Globulin gm/dL Albumin/Globulin Ratio (1.1-1.8) Arterial Blood Potassium (3.6-5.2) mmol/L Venous Blood Potassium 4.6 (3.6-5.2) mmol/L Urine Color Yellow (YELLOW) Urine Appearance Turbid (CLEAR) Urine pH 6.0 (4.7-8.0) Ur Specific [place] >= 1.030 (1.005-1.035) Urine Protein >=300 H (<30 mg/dL) mg/dL Urine Glucose (UA) Negative (NEGATIVE) mg/dL Urine Ketones Negative (NEGATIVE) mg/dL Urine Blood Large H (NEGATIVE) Urine Nitrate Negative (NEGATIVE) Urine Bilirubin Negative (NEGATIVE) Urine Urobilinogen 0.2 (<1 E.U./dL) E.U./dL Ur Leukocyte Esterase Negative (NEGATIVE) Madie/uL Urine RBC 20 - 25 (0-2) /hpf Urine WBC 15 - 20 (0-6) /hpf Ur Epithelial Cells 4 - 5 (0-5) /hpf Urine Bacteria Mod (NEG) Hyaline Casts 0 - 2 /hpf Urine Opiates Screen Positive H (NEGATIVE) Urine Methadone Screen Negative (NEGATIVE) Acetaminophen (10.0-20.0) ug/ml Ur Barbiturates Screen Negative (NEGATIVE) Ur Phencyclidine Scrn Negative (NEGATIVE) Ur Amphetamines Screen Negative (NEGATIVE) U Benzodiazepines Scrn Positive H (NEGATIVE) U Oth Cocaine Metabols Positive H (NEGATIVE) U Cannabinoids Screen Negative (NEGATIVE) Laboratory Results - last 24 hr 06/01/16 06/01/16 06/01/16 03:00 06:46 07:00 WBC 19.9 H RBC 3.82 Hgb 11.2 L Hct 35.9 L MCV 94.0 MCH 29.3 MCHC 31.2 RDW 15.9 H Plt Count 563 H MPV 9.0 Neutrophils % (Manual) 84 H Band Neutrophils % 4 H Lymphocytes % (Manual) 8 L Monocytes % (Manual) 4 Toxic Granulation Slight Platelet Evaluation High Large Platelets Present Giant Platelets Present Hypochromasia 1+ Poikilocytosis (manual Slight Anisocytosis (manual) 1+ Tear Drop Cells Slight Ovalocytes Slight pCO2 pO2 35 HCO3 ABG pH ABG Total CO2 ABG O2 Saturation ABG Base Excess ABG Potassium VBG pH 7.24 L VBG pCO2 61.0 H VBG HCO3 26.1 VBG Total CO2 28.0 VBG O2 Sat (Calc) 59.3 VBG Base Excess -2.5 L VBG Potassium 4.6 Sodium 142.0 Chloride 108.0 H Glucose 260 H Lactate 2.4 H Mechanical Rate FiO2 21.0 Tidal Volume PEEP Potassium Carbon Dioxide Anion Gap BUN Creatinine Est GFR ( Amer) Est GFR (Non-Af Amer) POC Glucose (mg/dL) Random Glucose Calcium Total Bilirubin AST ALT Alkaline Phosphatase Lactate Dehydrogenase 2512 H Total Creatine Kinase 2304 H CK-MB (CK-2) 19.4 H CK-MB (CK-2) % 0.8 L Troponin I 1.24 H* D Total Protein Albumin Globulin Albumin/Globulin Ratio Arterial Blood Potassium Venous Blood Potassium 4.6 Urine Color Yellow Urine Appearance Turbid Urine pH 6.0 Ur Specific [place] >= 1.030 Urine Protein >=300 H Urine Glucose (UA) Negative Urine Ketones Negative Urine Blood Large H Urine Nitrate Negative Urine Bilirubin Negative Urine Urobilinogen 0.2 Ur Leukocyte Esterase Negative Urine RBC 20 - 25 Urine WBC 15 - 20 Ur Epithelial Cells 4 - 5 Urine Bacteria Mod Hyaline Casts 0 - 2 Urine Opiates Screen Positive H Urine Methadone Screen Negative Acetaminophen Ur Barbiturates Screen Negative Ur Phencyclidine Scrn Negative Ur Amphetamines Screen Negative U Benzodiazepines Scrn Positive H U Oth Cocaine Metabols Positive H U Cannabinoids Screen Negative 06/01/16 06/01/16 06/01/16 07:27 09:07 10:15 WBC RBC Hgb Hct MCV MCH MCHC RDW Plt Count MPV Neutrophils % (Manual) Band Neutrophils % Lymphocytes % (Manual) Monocytes % (Manual) Toxic Granulation Platelet Evaluation Large Platelets Giant Platelets Hypochromasia Poikilocytosis (manual Anisocytosis (manual) Tear Drop Cells Ovalocytes pCO2 43 pO2 256.0 H HCO3 20.2 L ABG pH 7.28 L ABG Total CO2 21.5 L ABG O2 Saturation 99.9 H ABG Base Excess -6.4 L ABG Potassium 3.8 VBG pH VBG pCO2 VBG HCO3 VBG Total CO2 VBG O2 Sat (Calc) VBG Base Excess VBG Potassium Sodium 145 144.0 Chloride 105 117.0 H Glucose 182 H Lactate 1.2 Mechanical Rate 10 FiO2 60.0 Tidal Volume 440 PEEP 5 Potassium 4.4 Carbon Dioxide 28 Anion Gap 16 BUN 24 H Creatinine 1.7 H Est GFR ( Amer) 38 Est GFR (Non-Af Amer) 31 POC Glucose (mg/dL) 221 H Random Glucose 214 H Calcium 8.5 Total Bilirubin 1.3 AST 293 H ALT 78 H Alkaline Phosphatase 150 H Lactate Dehydrogenase Total Creatine Kinase CK-MB (CK-2) CK-MB (CK-2) % Troponin I Total Protein 6.9 Albumin 3.7 Globulin 3.2 Albumin/Globulin Ratio 1.2 Arterial Blood Potassium 3.8 Venous Blood Potassium Urine Color Urine Appearance Urine pH Ur Specific [place] Urine Protein Urine Glucose (UA) Urine Ketones Urine Blood Urine Nitrate Urine Bilirubin Urine Urobilinogen Ur Leukocyte Esterase Urine RBC Urine WBC Ur Epithelial Cells Urine Bacteria Hyaline Casts Urine Opiates Screen Urine Methadone Screen Acetaminophen < 10.0 L Ur Barbiturates Screen Ur Phencyclidine Scrn Ur Amphetamines Screen U Benzodiazepines Scrn U Oth Cocaine Metabols U Cannabinoids Screen EKG/Cardiology Studies: Cardiology / EKG Studies 06/01/16 04:12 EKG [ELECTROCARDIOGRAM] Stat Comment: Reason For Exam: repeat Fingerstick Blood Sugar Results: 319 Review of Systems - Review of Systems Systems not reviewed;Unavailable: Unstable Vital Signs Critical Care Progress Note - Ventilator Checklist Head of Bed 30 Degrees: Yes PUD Prophalyxis: Yes DVT Prophylaxis: Yes - Vent Settings MODE:: ASSIST CONTROL Assessment/Plan - Assessment and Plan (Free Text) Assessment: 55 y/o s/p Out of hospital Cardiac arrest PEA s/p OD Benzodiazapenes , cocaine and codeine Distributive shock? cardiogenic shock? ECHO pending, NSTEMI post cpr, Cardiology consult pending Poor urine output, on Normal saline and Bicarb ggt, can stop now that PH> 7.2 On broad spectrum abx - Vanco and zosyn with presumed sinusitis on CT Will need EEG, neurology eval and probable repeat Head ct due to motion artifact. COPD- currently not wheezing and air entry improving, some respiratory acidosis. Very poor prognosis, awaiting family to discuss goals of care. cc time 72 min
[2016-06-01] MEDS ORDERED: levETIRAcetam 1,000 MG in Sodium Chloride 0.9% 100 ML IV ONE (12:03)
--- NOTE | 2016-06-01 16:23 | CON ---
DATE: 06/01/2016 REASON FOR CONSULTATION: Cardiac arrest. The patient is a 55-year-old white female who has a history of depression, chronic obstructive lung d isease, was brought in by EMS after EMS was activated 10 minutes earlier for cardiac arrest. The pat ient underwent CPR for 37 minutes. The patient was reported to be in asystole and was given 4 doses of epinephrine, followed by defibrillation for ventricular fibrillation. The patient was also given 300 mg of amiodarone bolus, 2 g of magnesium sulfate, and 50 mg sodium bicarbonate. The patient was admitted to ICU on a ventilator. The patient required Levophed, which was recently discontinued. MEDICATIONS: The patient started on Diprivan infusion. The patient is on Brovana 15 mcg inhalation q. 12 hours, albuterol inhaler q. 3 hours p.r.n., heparin 5000 units subcutaneously twice a day, IV m idazolam, Protonix 40 mg intravenously once a day, sodium bicarb infusion at 125 mL per hour, vancomy jude 1 g intravenously twice a day, Zosyn 3.375 g intravenously q. 6 hours. REVIEW OF SYSTEMS: No documented seizures, and no reported ventricular tachycardia while the patient in ICU. PHYSICAL EXAMINATION: The patient is a middle-aged female who is heavily sedated on the ventilator. VITAL SIGNS: Blood pressure 144/74, heart rate 109, temperature 97.9. HENT: Normocephalic. NECK: No JVD. CHEST: Minimal rhonchi. HEART: S1, S2 regular. ABDOMEN: Periumbilical ecchymosis noted. EXTREMITIES: No pedal edema. LABORATORIES: CBC: WBC 19.9, hemoglobin 11.2, hematocrit 35.9, platelet count 563,000. SMA-7: Sod ium 145, potassium 4.4, chloride 105, CO2 of 28, glucose 214, BUN 24, creatinine 1.7. First troponin was 0.06, second one is 1.24. INR is 1.1, PTT 32. EKG revealed sinus tachycardia, wide QRS complex with right bundle branch block configuration pattern . Heart rate is 110. Head CT scan without contrast: Limited study by extensive motion and streak a rtifacts, extensive ischemic changes not excluded, and the patient will go for a repeat head CT scan. Urine drug screen is positive for opiates, benzodiazepines, cocaine. ASSESSMENT: 1. Status post cardiac arrest. 2. Cocaine and opiate abuse. 3. History of depression. Apparently, the patient was given Percocet prescription recently at [facility], and she may have taken all the pills. 4. Borderline troponin elevation. RECOMMENDATIONS: Continue subcutaneous heparin 5000 units q. 12 hours. Continue Solu-Medrol at 40 m g intravenously q. 12 hours. Continue IV vancomycin and IV Zosyn. Start aspirin 81 mg once a day an d Lipitor 20 mg once a day. The patient is not a suitable candidate for beta michael therapy in view of recent cocaine abuse. A bedside echocardiograph study was ordered. Elvin Dillon MD cc: [id number] TT: 06/01/2016 16:22:31 Confirmation # [id number] Dictation # [id number] jn
[2016-06-01] MEDS: Vancomycin 1gm in NS 250ml 250 ML IVPB SCH (16:51)
[2016-06-01 16:53] LABS: TROPONIN I 3.72 ng/mL
--- NOTE | 2016-06-01 17:29 | RAD ---
HISTORY: placement of OGT COMPARISON: Chest x-ray performed 06/01/16 TECHNIQUE: Chest, one view. FINDINGS: Distal tip of an endotracheal tube terminates approximately 4.7 cm above the level the jose. Nasogastric tube extends the expected location of the stomach. Multiple external wires and leads. LUNGS: No focal consolidation. Please note that chest x-ray has limited sensitivity for the detection of pulmonary masses. PLEURA: No significant pleural effusion identified. No definite pneumothorax . CARDIOVASCULAR: The cardiomediastinal silhouette appears within normal limits of size. OSSEOUS STRUCTURES: No acute osseous abnormality identified. VISUALIZED UPPER ABDOMEN: Unremarkable. OTHER FINDINGS: None. IMPRESSION: Distal tip of an endotracheal tube terminates approximately 4.7 cm above the level the jose. Nasogastric tube extends to the expected location of the stomach.
--- NOTE | 2016-06-01 17:33 | CON ---
DATE: 06/01/2016 REASON FOR CONSULTATION: Altered mental status, seizure. HISTORY OF PRESENT ILLNESS: The patient is a 55-year-old female who was brought to the Emergency [facility] via EMS after the patient had a cardiac arrest. The patient was in cardiac arrest for about 10 min utes prior to EMS arrival and 37 minutes while with EMS. The patient apparently regained a pulse aft er that. The patient was also shocked once. The patient was apparently in another hospital and stay ed there. This was about 1-2 months ago; this was for COPD exacerbation. Last night, the patient co mplained of a sudden worsening of shortness of breath to the and then the heard a willis mp in the bedroom and found the patient lying on the floor unconscious. In the hospital, the patient was noticed to have twitching movements of her arms or legs. The patient was started on Keppra afte r that. The patient was unable to give history. All the history is from the chart. REVIEW OF SYSTEMS: Unable to obtain. PAST MEDICAL HISTORY: Includes COPD and a history overdose in a suicide attempt. CURRENT MEDICATIONS: Include aspirin, propofol, DuoNeb, heparin, Keppra 500 mg every 12, Lipitor, mi dazolam p.r.n., norepinephrine p.r.n., Protonix, Solu-Medrol and vancomycin. ALLERGIES: No known drug allergies. SOCIAL HISTORY: The patient is a former smoker, does not use alcohol. She had some cocaine use in t he past. PAST SURGICAL HISTORY: Includes sinus surgeries, appendectomy, cholecystectomy. FAMILY HISTORY: Unknown. PHYSICAL EXAMINATION: GENERAL: The patient is a middle-aged female lying on the bed on a ventilator, mildly sedated with D iprivan. VITAL SIGNS: Her blood pressure is 114/69, heart rate is 108 per minute, breathing at a rate of 21 p er minute and her temperature is 97.9 degrees Fahrenheit. HEENT: Head is normocephalic, atraumatic. NECK: Supple. There are no carotid bruits. LUNGS: Clear. CARDIOVASCULAR: S1, S2 audible. No murmurs. ABDOMEN: Soft, nontender, minimal bowel sounds. NEUROLOGIC EXAMINATION: MENTAL STATUS: The patient is lightly sedated. She does not follow any commands. CRANIAL NERVE EXAMINATION: Pupils: Left is 3 mm, right is 3.5 mm, both reactive to light. There is minimal doll's eye movement. There is absent corneal reflex. There is minimal gag reflex. MOTOR EXAMINATION: Tone is decreased in all 4 extremities. There is no withdrawal of extremities to noxious painful stimuli. Plantars: No response. LABORATORY DATA: Labs reviewed, shows WBC of 19.9, hemoglobin of 11.2, hematocrit of 35.9 and platel ets of 563. Her sodium is 145, potassium is 4.4, chloride 105, carbon dioxide content 28, BUN of 24, creatinine 1.7 and glucose of 214. She had a CT scan of the head done, which shows limited study by excessive motion and streak artifact. Extensive ischemic changes not excluded on this study. Withi n the limits of the study it is favored that there is no acute hemorrhage. IMPRESSION: 1. Anoxic encephalopathy status post cardiac arrest. 2. Status post possible myoclonic seizure. 3. Respiratory failure. RECOMMENDATIONS: 1. The patient to be continued on Levetiracetam, which was started. 2. The patient did have an electroencephalogram. 3. The patient to have a repeat CT scan of the head after another 24-48 hours. 4. The patient's prognosis is guarded to poor. 5. Please continue supportive care and other treatment. Thank you for the opportunity to participate in the care of this patient. Shaista Ceja MD cc: [id number] TT: 06/01/2016 17:32:55 Confirmation # [id number] Dictation # [id number]
--- NOTE | 2016-06-01 21:27 | CP.PCM.CON ---
History of Present Illness - History of Present Illness History of Present Illness: Infectious Disease Consultation: June 01, 2016 55 yo female with multiple medical problems including rheumatoid arthritis and rheumatoid lung disease, hypertension, end stage COPD, multiple UTIs, and endometriosis. The patient also has an extensive history of substance abuse to the point where she attempted to sniff a powdered substance when she was in the [facility] ICU in March 2016. The patient had cardiac arrest at home. She was down for 10 minutes when EMS arrived and had CPR for 37 minutes. Patient was found in asystole by EMS and gave 4 rounds of epinephrine until pulse returned which was V. fib. EMS shocked patient. As per family, empty bottles of tamezepam and cough medicine with codeine. Patient is currently intubated and ventilated. Extremely poor prognosis. PMHx: rheumatoid arthritis and rheumatoid lung disease, hypertension, end stage COPD, multiple UTIs, and endometriosis. COPD, suicide attempt, diverticulosis PSHx: hysterectomy, right hip surgery, and neck surgery. Sinus surgery. Allergies: NKDA Social Hx: no tobacco, EtOH. Extensive Substance abuse history - Cocaine use - recent use as well. Active Medications Albuterol/Ipratropium (Duoneb 3 Mg/0.5 Mg (3 Ml) Ud) 3 ml IH [id number] YASSINE Last Admin: 06/21/14 19:34 Dose: Not Given Albuterol/Ipratropium (Duoneb 3 Mg/0.5 Mg (3 Ml) Ud) 3 ml IH Q2H PRN PRN Reason: Wheezing Alprazolam (Xanax) 1 mg PO TID PRN PRN Reason: Anxiety Last Admin: 06/21/14 19:52 Dose: 1 mg Guaifenesin/Dextromethorphan (Robitussin Dm) 10 ml PO Q6 PRN PRN Reason: Cough and congestion Ceftriaxone Sodium 1 gm/ (Dextrose) 100 mls @ 100 mls/hr IVPB DAILY [facility] Last Admin: 06/21/14 11:00 Dose: 100 mls/hr Oxycodone HCl (Oxycodone Immediate Release Tab) 20 mg PO Q6H PRN PRN Reason: Pain, severe (8-10) Last Admin: 06/21/14 19:49 Dose: 20 mg Fluticasone/Salmeterol (Advair Diskus 250/50) 1 puff INH BID YASSINE Last Admin: 06/21/14 19:55 Dose: 1 puff Tiotropium [place] (Spiriva) 18 mcg IH DAILY [facility] Last Admin: 06/21/14 17:56 Dose: Not Given Zolpidem Tartrate (Ambien) 10 mg PO HS [facility] Family Hx: None given ROS: Unable to obtain from patient. Past Patient History - Infectious Disease Hx of Infectious Diseases: MRSA - Tetanus Immunizations Tetanus Immunization: Unknown - Past Medical History & Family History Past Medical History?: Yes - Past Social History Smoking Status: Former Smoker - CARDIAC Hx Hypertension: Yes - PULMONARY Hx Asthma: Yes Hx Bronchitis: Yes Hx Chronic Obstructive Pulmonary Disease (COPD): Yes Hx Emphysema: Yes - NEUROLOGICAL Hx Neurological Disorder: No - HEENT Hx HEENT Problems: Yes Other/Comment: sinus sx x 2, removal of septum, removal of sinus tissue on L side - RENAL Hx Chronic Kidney Disease: No - ENDOCRINE/METABOLIC Hx Hypothyroidism: Yes - HEMATOLOGICAL/ONCOLOGICAL Hx Hepatitis B: No (states she had a false positive test x 1) - INTEGUMENTARY Hx Dermatological Problems: No - MUSCULOSKELETAL/RHEUMATOLOGICAL Hx Falls: No Hx Rheumatoid Arthritis: Yes - GASTROINTESTINAL Hx Diverticulitis: Yes - GENITOURINARY/GYNECOLOGICAL Hx Genitourinary Disorders: No - PSYCHIATRIC Hx Psychophysiologic Disorder: No Hx Anxiety: No Hx Bipolar Disorder: No Hx Depression: No Hx Emotional Abuse: No Hx Hallucinations: No Hx Panic Symptoms: No Hx Post Traumatic Stress Disorder: No Hx Psychosis: No Hx Physical Abuse: No Hx Schizophrenia: No Hx Sexual Abuse: No Hx Substance Use: No - SURGICAL HISTORY Hx Appendectomy: Yes Hx Cholecystectomy: Yes Hx Orthopedic Surgery: Yes - ANESTHESIA Hx Anesthesia Reactions: No Hx Malignant Hyperthermia: No Meds Allergies/Adverse Reactions: Allergies Allergy/AdvReac Type Severity Reaction Status Date / Time No Known Allergies Allergy Verified 06/01/16 01:54 - Medications Medications: Current Medications Albuterol/Ipratropium (Duoneb 3 Mg/0.5 Mg (3 Ml) Ud) 3 ml IH [id number] [facility] Last Admin: 06/01/16 13:57 Dose: 3 ml Albuterol/Ipratropium (Duoneb 3 Mg/0.5 Mg (3 Ml) Ud) 3 ml IH Q3 PRN PRN Reason: Wheezing Aspirin (Aspirin Chewable) 81 mg NG DAILY [facility] Last Admin: 06/01/16 17:02 Dose: 81 mg Atorvastatin Calcium (Lipitor) 20 mg NG DIN [facility] Last Admin: 06/01/16 17:02 Dose: 20 mg Heparin Sodium (Porcine) (Heparin) 5,000 units SC Q12 YASSINE PRN Reason: Protocol Last Admin: 06/01/16 09:47 Dose: 5,000 units Norepinephrine Bitartrate 4 mg (/ Sodium Chloride) 254 mls @ 19.05 mls/hr IV .[id number] PRN; Protocol; 5 MCG/MIN PRN Reason: TITRATE PER MD ORDER Last Admin: 06/01/16 03:19 Dose: 19.05 mls/hr Midazolam 100 mg/100ml in NS (Midazolam 100 Mg/100ml In Ns) 100 mls @ 1 mls/hr IV .Q24H PRN; Protocol; 1 MG/HR PRN Reason: Sedation Last Admin: 06/01/16 03:10 Dose: 1 mls/hr Sodium Bicarbonate 50 meq/ (Sodium Chloride) 1,050 mls @ 125 mls/hr IV .Q8H24M [facility] Last Admin: 06/01/16 15:00 Dose: 125 mls/hr Vancomycin HCl (Vancomycin 1gm) 250 mls @ 167 mls/hr IVPB Q12H YASSINE PRN Reason: Protocol Last Admin: 06/01/16 16:51 Dose: 167 mls/hr Propofol (Diprivan) 100 mls @ 2.33 mls/hr IV .Q24H PRN; Protocol; 5 MCG/KG/MIN PRN Reason: TITRATE PER MD ORDER Last Admin: 06/01/16 07:57 Dose: 2.33 mls/hr Levetiracetam (Keppra 500mg Ivpb) 100 mls @ 400 mls/hr IV Q12 [facility] Methylprednisolone (Solu-Medrol) 40 mg IVP Q12 [facility] Last Admin: 06/01/16 09:46 Dose: 40 mg Pantoprazole Sodium (Protonix Inj) 40 mg IVP DAILY [facility] Last Admin: 06/01/16 09:46 Dose: 40 mg Physical Exam - Constitutional Appears: Chronically Ill Additional comments: intubated and ventilated. poorly responsive. - Head Exam Additional comments: intubated and ventilated. poorly responsive. - Eye Exam Additional comments: pinpoint and sluggish reaction - ENT Exam ENT Exam: Mucous Membranes Moist, Normal External Ear Exam, TM's Normal Bilaterally - Neck Exam Additional comments: intubated and ventilated. poorly responsive. - Respiratory Exam Respiratory Exam: Clear to Auscultation Bilateral. absent: Rales, Rhonchi, Wheezes Additional comments: intubated and ventilated. poorly responsive. - Cardiovascular Exam Cardiovascular Exam: REGULAR RHYTHM, RRR, +S1, +S2 - GI/Abdominal Exam GI & Abdominal Exam: Normal Bowel Sounds, Soft. absent: Distended, Tenderness - Extremities Exam Extremities exam: Positive for: normal inspection - Neurological Exam Additional comments: intubated and ventilated. poorly responsive. - Skin Skin Exam: Intact, Normal Color Results - Vital Signs Recent Vital Signs: Last Vital Signs Temp 97.9 F 06/01/16 05:00 Pulse 108 H 06/01/16 13:16 Resp 21 06/01/16 05:00 BP 128/64 06/01/16 05:00 Pulse Ox 99 06/01/16 04:34 - Labs Result Diagrams: 06/01/16 06:46 06/01/16 09:07 Labs: Laboratory Results - last 24 hr 06/01/16 06/01/16 06/01/16 03:00 06:46 07:00 WBC 19.9 H RBC 3.82 Hgb 11.2 L Hct 35.9 L MCV 94.0 MCH 29.3 MCHC 31.2 RDW 15.9 H Plt Count 563 H MPV 9.0 Neutrophils % (Manual) 84 H Band Neutrophils % 4 H Lymphocytes % (Manual) 8 L Monocytes % (Manual) 4 Toxic Granulation Slight Platelet Evaluation High Large Platelets Present Giant Platelets Present Hypochromasia 1+ Poikilocytosis (manual Slight Anisocytosis (manual) 1+ Tear Drop Cells Slight Ovalocytes Slight pCO2 pO2 35 HCO3 ABG pH ABG Total CO2 ABG O2 Saturation ABG Base Excess ABG Potassium VBG pH 7.24 L VBG pCO2 61.0 H VBG HCO3 26.1 VBG Total CO2 28.0 VBG O2 Sat (Calc) 59.3 VBG Base Excess -2.5 L VBG Potassium 4.6 Sodium 142.0 Chloride 108.0 H Glucose 260 H Lactate 2.4 H Mechanical Rate FiO2 21.0 Tidal Volume PEEP Potassium Carbon Dioxide Anion Gap BUN Creatinine Est GFR ( Amer) Est GFR (Non-Af Amer) POC Glucose (mg/dL) Random Glucose Calcium Total Bilirubin AST ALT Alkaline Phosphatase Lactate Dehydrogenase 2512 H Total Creatine Kinase 2304 H CK-MB (CK-2) 19.4 H CK-MB (CK-2) % 0.8 L Troponin I 1.24 H* D Total Protein Albumin Globulin Albumin/Globulin Ratio Triglycerides Cholesterol LDL Cholesterol Direct HDL Cholesterol Arterial Blood Potassium Venous Blood Potassium 4.6 Urine Color Yellow Urine Appearance Turbid Urine pH 6.0 Ur Specific [place] >= 1.030 Urine Protein >=300 H Urine Glucose (UA) Negative Urine Ketones Negative Urine Blood Large H Urine Nitrate Negative Urine Bilirubin Negative Urine Urobilinogen 0.2 Ur Leukocyte Esterase Negative Urine RBC 20 - 25 Urine WBC 15 - 20 Ur Epithelial Cells 4 - 5 Urine Bacteria Mod Hyaline Casts 0 - 2 Urine Opiates Screen Positive H Urine Methadone Screen Negative Acetaminophen Ur Barbiturates Screen Negative Ur Phencyclidine Scrn Negative Ur Amphetamines Screen Negative U Benzodiazepines Scrn Positive H U Oth Cocaine Metabols Positive H U Cannabinoids Screen Negative 06/01/16 06/01/16 06/01/16 07:27 09:07 10:15 WBC RBC Hgb Hct MCV MCH MCHC RDW Plt Count MPV Neutrophils % (Manual) Band Neutrophils % Lymphocytes % (Manual) Monocytes % (Manual) Toxic Granulation Platelet Evaluation Large Platelets Giant Platelets Hypochromasia Poikilocytosis (manual Anisocytosis (manual) Tear Drop Cells Ovalocytes pCO2 43 pO2 256.0 H HCO3 20.2 L ABG pH 7.28 L ABG Total CO2 21.5 L ABG O2 Saturation 99.9 H ABG Base Excess -6.4 L ABG Potassium 3.8 VBG pH VBG pCO2 VBG HCO3 VBG Total CO2 VBG O2 Sat (Calc) VBG Base Excess VBG Potassium Sodium 145 144.0 Chloride 105 117.0 H Glucose 182 H Lactate 1.2 Mechanical Rate 10 FiO2 60.0 Tidal Volume 440 PEEP 5 Potassium 4.4 Carbon Dioxide 28 Anion Gap 16 BUN 24 H Creatinine 1.7 H Est GFR ( Amer) 38 Est GFR (Non-Af Amer) 31 POC Glucose (mg/dL) 221 H Random Glucose 214 H Calcium 8.5 Total Bilirubin 1.3 AST 293 H ALT 78 H Alkaline Phosphatase 150 H Lactate Dehydrogenase Total Creatine Kinase CK-MB (CK-2) CK-MB (CK-2) % Troponin I Total Protein 6.9 Albumin 3.7 Globulin 3.2 Albumin/Globulin Ratio 1.2 Triglycerides Cholesterol LDL Cholesterol Direct HDL Cholesterol Arterial Blood Potassium 3.8 Venous Blood Potassium Urine Color Urine Appearance Urine pH Ur Specific [place] Urine Protein Urine Glucose (UA) Urine Ketones Urine Blood Urine Nitrate Urine Bilirubin Urine Urobilinogen Ur Leukocyte Esterase Urine RBC Urine WBC Ur Epithelial Cells Urine Bacteria Hyaline Casts Urine Opiates Screen Urine Methadone Screen Acetaminophen < 10.0 L Ur Barbiturates Screen Ur Phencyclidine Scrn Ur Amphetamines Screen U Benzodiazepines Scrn U Oth Cocaine Metabols U Cannabinoids Screen 06/01/16 16:00 WBC RBC Hgb Hct MCV MCH MCHC RDW Plt Count MPV Neutrophils % (Manual) Band Neutrophils % Lymphocytes % (Manual) Monocytes % (Manual) Toxic Granulation Platelet Evaluation Large Platelets Giant Platelets Hypochromasia Poikilocytosis (manual Anisocytosis (manual) Tear Drop Cells Ovalocytes pCO2 pO2 HCO3 ABG pH ABG Total CO2 ABG O2 Saturation ABG Base Excess ABG Potassium VBG pH VBG pCO2 VBG HCO3 VBG Total CO2 VBG O2 Sat (Calc) VBG Base Excess VBG Potassium Sodium Chloride Glucose Lactate Mechanical Rate FiO2 Tidal Volume PEEP Potassium Carbon Dioxide Anion Gap BUN Creatinine Est GFR ( Amer) Est GFR (Non-Af Amer) POC Glucose (mg/dL) Random Glucose Calcium Total Bilirubin AST ALT Alkaline Phosphatase Lactate Dehydrogenase 2463 H Total Creatine Kinase 2950 H CK-MB (CK-2) 16.5 H CK-MB (CK-2) % 0.6 L Troponin I 3.72 H* D Total Protein Albumin Globulin Albumin/Globulin Ratio Triglycerides 233 H Cholesterol 119 L LDL Cholesterol Direct 39 HDL Cholesterol 37 Arterial Blood Potassium Venous Blood Potassium Urine Color Urine Appearance Urine pH Ur Specific [place] Urine Protein Urine Glucose (UA) Urine Ketones Urine Blood Urine Nitrate Urine Bilirubin Urine Urobilinogen Ur Leukocyte Esterase Urine RBC Urine WBC Ur Epithelial Cells Urine Bacteria Hyaline Casts Urine Opiates Screen Urine Methadone Screen Acetaminophen Ur Barbiturates Screen Ur Phencyclidine Scrn Ur Amphetamines Screen U Benzodiazepines Scrn U Oth Cocaine Metabols U Cannabinoids Screen Assessment & Plan - Assessment and Plan (Free Text) Assessment: 55 yo female found unresponsive at home and down for at least 47 minutes pulseless. The patient had a cardiac arrest. The patient is currently intubated and ventilated. Very poorly responsive. Pupils pinpoint and sluggish. The patient has leukocytosis up to 22. Started on antibiotics of Vancomycin currently. Very poor prognosis at this point. Leukocytosis can be due to the cardiac arrest, anoxia, or infection. Multiple medical issues. Supportive care. Cardiac Shock more likely than Septic Shock. Overdose on Codeine and Benzodiazepene. Cocaine Use (still active user). Acute kidney injury likely secondary to hypoperfusion. Extremely poor prognosis for this patient at this time. Will continue with Vancomycin and Zosyn for treatment if there is an infectious issue. Thank you for allowing me to participate in the care of the patient, we will follow with you.
[2016-06-01] MEDS: levETIRAcetam 500mg IVPB 100 ML IV SCH (21:44)
--- NOTE | 2016-06-01 23:51 | CARD ---
APPROVED REPORT EXAM: Two-dimensional and M-mode echocardiogram with Doppler and color Doppler. INDICATION Cardiac arrest 2D DIMENSIONS Left Atrium (2D)3.1 (1.6-4.0cm)IVSd0.7 (0.7-1.1cm) Aortic Root (2D)3.5 (2.0-3.7cm)LVDd5.1 (3.9-5.9cm) PWd0.8 (0.7-1.1cm)LVDs3.7 (2.5-4.0cm) FS (%) 27.7 % M-Mode DIMENSIONS Aortic Cusp Exc.2.20 (1.5-2.0cm) Mitral Valve MV E Qkosfttc24.3cm/sMV A Tkpvqxrl20.6cm/sE/A ratio0.9 TDI Lateral E' Peak V3.80cm/sMedial E' Peak V4.58cm/sE/Lateral E'16.4 E/Medial E'13.6 Pulmonary Valve PV Peak Bxsczlqb22.7cm/sPV Peak Grad.2mmHg Tricuspid Valve TR Peak [id number]/sRAP [id number] Peak Gr.22mmHg [id number] LEFT VENTRICLE The left ventricle is normal size. There is normal left ventricular wall thickness. The systolic function is severely impaired. The Ejection Fraction is 30-35%. Septal and infero-lateral hypokinesis Transmitral Doppler flow pattern is Grade I-abnormal relaxation pattern. RIGHT VENTRICLE The right ventricle is normal size. There is normal right ventricular wall thickness. The right ventricular systolic function is normal. ATRIA The left atrium size is normal. The right atrium size is normal. AORTIC VALVE No aortic regurgitation is present. There is no aortic valvular stenosis. MITRAL VALVE Mitral regurgitation is mild. TRICUSPID VALVE There is no pulmonary hypertension. GREAT VESSELS The IVC is dilated. PERICARDIAL EFFUSION There is a trace loculated anterior pericardial effusion. <Conclusion> The left ventricle is normal size. There is normal left ventricular wall thickness. The systolic function is severely impaired. The Ejection Fraction is 30-35%. Septal and infero-lateral hypokinesis Transmitral Doppler flow pattern is Grade I-abnormal relaxation pattern. Mitral regurgitation is mild.
[2016-06-02] MEDS: Midazolam 100 mg/100ml in NS 100 ML IV PRN ×3 (01:52→21:45)
[2016-06-02] MEDS: Albuterol-Ipratrop 3 mg / 0.5 (3 ml) UD IH SCH ×4 (02:30→20:41)
[2016-06-02] MEDS: Piperacillin/Tazobact 3.375 gm 100 ML IVPB SCH ×4 (05:00→17:02)
[2016-06-02 06:31] LABS: BILIRUBIN,TOTAL 0.5 mg/dL (0.2-1.3); CALCIUM 7.5 mg/dL (8.4-10.5); MAGNESIUM 2.1 mg/dL (1.7-2.2); PHOSPHOROUS 4.7 mg/dL (2.5-4.5); POTASSIUM 3.9 mmol/L (3.6-5.0); TOTAL PROTEIN 5.9 g/dL (5.8-8.3)
[2016-06-02 06:33] LABS: MEAN CELL VOLUME 93.9 fL (80.0-105.0); MEAN CORPUSCULAR HEMOGLOBIN 29.1 pg (25.0-35.0); RED CELL DISTRIBUTION WIDTH 16.3 % (11.5-14.5); WHITE BLOOD COUNT 15.8 10^3/ul (4.5-11.0)
[2016-06-02] MEDS: Vancomycin 1gm in NS 250ml 250 ML IVPB SCH ×2 (07:05→17:17)
[2016-06-02 07:39] LABS: ARTERIAL BLOOD GAS HCO3 19.7 mmol/L (21-28); ARTERIAL BLOOD GAS O2 CAPACITY 13.3 mL/dl (16-24); ARTERIAL BLOOD GAS O2 CONTENT 13.2 ML/dl (15-23); ARTERIAL BLOOD GAS PH 7.27 (7.35-7.45); ARTERIAL BLOOD HGB O2 SAT 97.2 % (95.0-98.0); CARBOXYHEMOGLOBIN 1.6 % (0.5-1.5); HHB 0.7 % (0-5); METHEMOGLOBIN 0.6 % (0.0-3.0)
[2016-06-02] MEDS: Sodium Chloride 0.9% 1,000 ML IV SCH ×2 (07:46→19:30)
[2016-06-02] MEDS: levETIRAcetam 500mg IVPB 100 ML IV SCH ×2 (09:22→21:05)
[2016-06-02] MEDS: MethylPREDNISolone 40 mg Vial IVP SCH (09:23)
--- NOTE | 2016-06-02 11:06 | CP.PCM.PN ---
<Atul Davis - Last Filed: 06/02/16 11:17> Subjective - Date & Time of Evaluation Date of Evaluation: 06/02/16 Time of Evaluation: 11:03 - Subjective Subjective: Pt seen and examined at bedside in ICU. Pt is intubated and sedated on versed and propofol drip. No acute events overnight. Pt was noted to be breathing over the vent. Objective - Vital Signs/Intake and Output Vital Signs (last 24 hours): Temp Pulse Resp BP Pulse Ox 98.4 F 107 H 20 119/77 99 06/02/16 07:17 06/02/16 10:49 06/02/16 10:49 06/02/16 07:17 06/01/16 04:34 Intake and Output: 06/02/16 06/02/16 06:59 18:59 Intake Total 1935 Output Total 500 Balance 1435 - Medications Medications: Current Medications Albuterol/Ipratropium (Duoneb 3 Mg/0.5 Mg (3 Ml) Ud) 3 ml IH [id number] [facility] Last Admin: 06/02/16 07:55 Dose: 3 ml Albuterol/Ipratropium (Duoneb 3 Mg/0.5 Mg (3 Ml) Ud) 3 ml IH Q3 PRN PRN Reason: Wheezing Aspirin (Aspirin Chewable) 81 mg NG DAILY [facility] Last Admin: 06/02/16 09:24 Dose: 81 mg Atorvastatin Calcium (Lipitor) 20 mg NG DIN [facility] Last Admin: 06/01/16 17:02 Dose: 20 mg Heparin Sodium (Porcine) (Heparin) 5,000 units SC Q12 TIFFANIE PRN Reason: Protocol Last Admin: 06/01/16 21:46 Dose: 5,000 units Norepinephrine Bitartrate 4 mg (/ Sodium Chloride) 254 mls @ 19.05 mls/hr IV .[id number] PRN; Protocol; 5 MCG/MIN PRN Reason: TITRATE PER MD ORDER Last Admin: 06/01/16 03:19 Dose: 19.05 mls/hr Midazolam 100 mg/100ml in NS (Midazolam 100 Mg/100ml In Ns) 100 mls @ 1 mls/hr IV .Q24H PRN; Protocol; 1 MG/HR PRN Reason: Sedation Last Admin: 06/02/16 01:52 Dose: 10 mls/hr Vancomycin HCl (Vancomycin 1gm) 250 mls @ 167 mls/hr IVPB Q12H TIFFANIE PRN Reason: Protocol Last Admin: 06/02/16 07:05 Dose: 167 mls/hr Propofol (Diprivan) 100 mls @ 2.33 mls/hr IV .Q24H PRN; Protocol; 5 MCG/KG/MIN PRN Reason: TITRATE PER MD ORDER Last Admin: 06/02/16 04:41 Dose: 13.9 mls/hr Levetiracetam (Keppra 500mg Ivpb) 100 mls @ 400 mls/hr IV Q12 [facility] Last Admin: 06/02/16 09:22 Dose: 400 mls/hr Piperacillin Sod/Tazobactam Sod (Zosyn 3.375 In Ns 100ml) 100 mls @ 200 mls/hr IVPB Q6 TIFFANIE PRN Reason: Protocol Stop: 06/07/16 06:29 Last Admin: 06/02/16 07:42 Dose: 200 mls/hr Sodium Chloride (Sodium Chloride 0.9%) 1,000 mls @ 125 mls/hr IV .Q8H [facility] Last Admin: 06/02/16 07:46 Dose: 125 mls/hr Methylprednisolone (Solu-Medrol) 40 mg IVP Q12 [facility] Last Admin: 06/02/16 09:23 Dose: 40 mg Pantoprazole Sodium (Protonix Inj) 40 mg IVP DAILY [facility] Last Admin: 06/02/16 09:23 Dose: 40 mg - Labs Labs: 06/02/16 06:00 06/02/16 06:00 PT 12.1 Seconds (9.9-11.8) H 06/01/16 02:30 INR 1.12 (0.93-1.08) H 06/01/16 02:30 APTT 32.0 Seconds (23.7-30.8) H 06/01/16 02:30 - Constitutional Appears: In Acute Distress - Head Exam Head Exam: ATRAUMATIC, NORMAL INSPECTION, NORMOCEPHALIC - ENT Exam ENT Exam: Mucous Membranes Dry - Respiratory Exam Respiratory Exam: absent: Rhonchi, Wheezes Additional comments: Intubated. - Cardiovascular Exam Cardiovascular Exam: RRR, +S1, +S2 - GI/Abdominal Exam GI & Abdominal Exam: Soft, Tenderness, Normal Bowel Sounds. absent: Distended, Firm, Guarding - Extremities Exam Extremities Exam: Normal Inspection. absent: Pedal Edema - Neurological Exam Neurological Exam: absent: Alert, Awake - Skin Skin Exam: Intact, Normal Color, Warm Assessment and Plan - Assessment and Plan (Free Text) Plan: 55 y/o female with PMH of COPD, Hx of overdose and suicide attempt presents with NSTEMI and drug overdose to ICU. Pt remains intubated and sedated, on pressors. Neurology recommends pt continue Keppra for seizure activity and repeat Head CT. ID recommends Vanco and Zosyn for possible infectious issues. Pt will remain in the ICU at this time, prognosis is poor. Neuro: Intubated and sedated Repeat head CT Continue Keppra for seizure like activity CV: NSTEMI Likely cardiogenic shock 2/2 NSEMI On pressors Goal MAP > 65 Pulm: Intubated and sedated ABG improved from previous day, pH stable CXR clear Maintain Sp02>90 Continue IV solmedrol 40 bid and duoneb q 6 tiffanie, q3 prn GI: Protonix for GI prophylaxis Heme: Leukocytosis Hg stable Heparin q12 Renal/: JB NS @ 125 Bicarb stopped as pH is above 7.2 Maintain euvolemia Monitor Urine output Continue to monitor electrolytes will replace/replete as needed Endo: Accu q6h Maintain euglycemia ID: Afebrile, no leukocytosis Continue Vanc and Zosyn Follow urine and blood cultures Maintain normothermia Seen, reviewed, and discussed with attending Ryan PGY-1 <Dagmar Lange - Last Filed: 06/02/16 15:12> Objective - Vital Signs/Intake and Output Vital Signs (last 24 hours): Temp Pulse Resp BP Pulse Ox 97 F L 107 H 20 119/77 99 06/02/16 11:42 06/02/16 10:49 06/02/16 10:49 06/02/16 07:17 06/01/16 04:34 Intake and Output: 06/02/16 06/02/16 06:59 18:59 Intake Total 1935 Output Total 500 Balance 1435 - Medications Medications: Current Medications Albuterol/Ipratropium (Duoneb 3 Mg/0.5 Mg (3 Ml) Ud) 3 ml IH [id number] [facility]FFANIE Last Admin: 06/02/16 13:10 Dose: 3 ml Albuterol/Ipratropium (Duoneb 3 Mg/0.5 Mg (3 Ml) Ud) 3 ml IH Q3 PRN PRN Reason: Wheezing Aspirin (Aspirin Chewable) 81 mg NG DAILY [facility] Last Admin: 06/02/16 09:24 Dose: 81 mg Atorvastatin Calcium (Lipitor) 20 mg NG DIN [facility] Last Admin: 06/01/16 17:02 Dose: 20 mg Heparin Sodium (Porcine) (Heparin) 5,000 units SC Q12 [facility] PRN Reason: Protocol Last Admin: 06/02/16 10:00 Dose: 5,000 units Norepinephrine Bitartrate 4 mg (/ Sodium Chloride) 254 mls @ 19.05 mls/hr IV .[id number] PRN; Protocol; 5 MCG/MIN PRN Reason: TITRATE PER MD ORDER Last Admin: 06/01/16 03:19 Dose: 19.05 mls/hr Midazolam 100 mg/100ml in NS (Midazolam 100 Mg/100ml In Ns) 100 mls @ 1 mls/hr IV .Q24H PRN; Protocol; 1 MG/HR PRN Reason: Sedation Last Admin: 06/02/16 11:04 Dose: 10 mls/hr Vancomycin HCl (Vancomycin 1gm) 250 mls @ 167 mls/hr IVPB Q12H [facility] PRN Reason: Protocol Last Admin: 06/02/16 07:05 Dose: 167 mls/hr Propofol (Diprivan) 100 mls @ 2.33 mls/hr IV .Q24H PRN; Protocol; 5 MCG/KG/MIN PRN Reason: TITRATE PER MD ORDER Last Admin: 06/02/16 04:41 Dose: 13.9 mls/hr Levetiracetam (Keppra 500mg Ivpb) 100 mls @ 400 mls/hr IV Q12 [facility] Last Admin: 06/02/16 09:22 Dose: 400 mls/hr Piperacillin Sod/Tazobactam Sod (Zosyn 3.375 In Ns 100ml) 100 mls @ 200 mls/hr IVPB Q6 [facility] PRN Reason: Protocol Stop: 06/07/16 06:29 Last Admin: 06/02/16 13:46 Dose: 200 mls/hr Sodium Chloride (Sodium Chloride 0.9%) 1,000 mls @ 125 mls/hr IV .Q8H [facility] Last Admin: 06/02/16 07:46 Dose: 125 mls/hr Pantoprazole Sodium (Protonix Inj) 40 mg IVP DAILY [facility] Last Admin: 06/02/16 09:23 Dose: 40 mg - Labs Labs: 06/02/16 06:00 06/02/16 06:00 PT 12.1 Seconds (9.9-11.8) H 06/01/16 02:30 INR 1.12 (0.93-1.08) H 06/01/16 02:30 APTT 32.0 Seconds (23.7-30.8) H 06/01/16 02:30 Attending/Attestation - Attestation I have personally seen and examined this patient.: Yes I have fully participated in the care of the patient.: Yes I have reviewed all pertinent clinical information, including history, physical exam and plan: Yes Notes (Text): 06/02/16 15:06 55 year old female with past medical history of COPD and history of substance abuse, overdose and suicide attempts presented s/p cardiac arrest with suspected overdose. Urine drug screen was positive for opiates, benzodiazepines and cocaine. CT head was reviewed and plan is to repeat CT head tonight or tomorrow as per neurology. EEG is ordered as well for tomorrow. Patient is on keppra. Continue with vent management as per industrial maintenance tech. Continue with iv antibiotics as per ID. She also made positive cardiac enzymes. Cardiology is following and started aspirin and statin. Will review her echocardiogram. Continue with iv fluids for JB and was on bicarb for acidosis. Continue to monitor LFTs and renal function closely. Overall prognosis is extremely poor. Dagmar Lange MD Hospitalist.
--- NOTE | 2016-06-02 11:49 | PN ---
DATE: 06/02/2016 The patient is lying on the bed, on a ventilator, slightly sedated with Diprivan because of hypervent ilation. PHYSICAL EXAMINATION: VITAL SIGNS: Her blood pressure is 119/70, heart rate is 107 per minute. She is breathing at a rate of 20 per minute, temperature is 98.4 degrees Fahrenheit. HEENT: Head is normocephalic, atraumatic. NECK: Supple. There are no carotid bruits. LUNGS: Clear. CARDIOVASCULAR: S1, S2 audible. No murmurs. ABDOMEN: Soft and nontender. Bowel sounds absent. NEUROLOGIC EXAMINATION: MENTAL STATUS: The patient is comatose. She does not respond to verbal or noxious painful stimuli. CRANIAL NERVES: Pupils 3 mm, minimally reactive to light. There is minimal doll's eye movement. Th ere is absent corneal reflexes, absent gag reflex. MOTOR: Tone is decreased in all 4 extremities. There is no withdrawal of extremities to noxious rigo nful stimuli. Plantars no response. LABORATORIES: Reviewed, shows WBC of 15.8, hemoglobin 9.6, hematocrit of 31.0 and platelets of 272. Sodium is 144, potassium 3.9, chloride of 112, carbon dioxide content of 21, BUN of 31, creatinine 1 .6 and glucose of 112. IMPRESSION: 1. Anoxic encephalopathy, status post cardiac arrest. 2. Status post myoclonic seizures. 3. Respiratory failure. RECOMMENDATIONS: 1. The patient to be continued on Keppra. 2. The patient to have an electroencephalogram. 3. The patient to have a repeat CT scan of the head done perhaps tomorrow morning. 4. The patient has shown no improvement in her neurologic status. 5. Please continue supportive care; however, the prognosis appears to be guarded to poor. Thank you for the opportunity to participate in the care of this patient. Shaista Ceja MD cc: [phone] TT: 06/02/2016 11:48:24 Confirmation # [id number] Dictation # [id number] en
--- NOTE | 2016-06-02 12:20 | RAD ---
HISTORY: ETT COMPARISON: Chest x-ray performed 06/01/16 TECHNIQUE: Chest, one view. FINDINGS: Endotracheal tube terminates approximately 4 cm above the jose. Nasogastric tube extends expected location of the stomach. LUNGS: No focal consolidation. Please note that chest x-ray has limited sensitivity for the detection of pulmonary masses. PLEURA: No significant pleural effusion identified. No definite pneumothorax . CARDIOVASCULAR: The cardiomediastinal silhouette appears within normal limits of size. OSSEOUS STRUCTURES: No acute osseous abnormality identified. VISUALIZED UPPER ABDOMEN: Unremarkable. OTHER FINDINGS: None. IMPRESSION: Endotracheal tube terminates approximately 4 cm above the jose. Nasogastric tube extends expected location of the stomach.
--- NOTE | 2016-06-02 12:47 | CP.CCUPN ---
CCU Subjective - Physician Review Events Since Last Encounter (Free Text): 06/02/16 12:42 No acute events overnight BP improved, off all vasopressors Sedated on Versed and propofol due to seizure like activity yesterday Critical Care Time Spent (in minutes): 65 CCU Objective - Vital Signs / Intake & Output Vital Signs (Last 4 hours): Vital Signs Temp Pulse Resp 06/02/16 11:42 97 F L 06/02/16 10:49 107 H 20 Intake and Output (Last 8hrs): Intake & Output 06/01/16 06/02/16 06/02/16 22:59 06:59 14:59 Intake Total 3200 1935 Output Total 350 500 Balance 2850 1435 Intake: IV 3200 1485 Right Femoral 3200 versed 110 0.9 NS 1L 1375 Other 450 Output: Urine 350 500 Urethral (Rangel) 350 500 Other: Voiding Method Indwelling Catheter Indwelling Catheter Indwelling Catheter # Bowel Movements 0 - Physical Exam Head: Positive for: Atraumatic, Normocephalic Pupils: Positive for: PERRL, Sluggish, Pinpoint (unequal pupil ) Extroacular Muscles: Positive for: EOMI Conjunctiva: Positive for: Normal Mouth: Positive for: Moist Mucous Membranes Neck: Positive for: Normal Range of Motion Respiratory/Chest: Positive for: Other (poor air exchange ) Cardiovascular: Positive for: Tachycardic, Other (+faint right femoral pulse). Negative for: Murmurs, Rub, Gallop Abdomen: Positive for: Normal Bowel Sounds. Negative for: Tenderness, Distention, Peritoneal Signs, Rebound, Guarding Back: Positive for: Normal Inspection Upper Extremity: Positive for: Normal Inspection. Negative for: Cyanosis, Edema Lower Extremity: Positive for: Normal Inspection, NORMAL PULSES. Negative for: Edema Neurological: Positive for: Other (no neurologicla function canbe determined a pt has been actively seizing. ) Skin: Positive for: Warm, Dry, Normal Color. Negative for: Rashes Psychiatric: Positive for: Alert, Normal Insight, Normal Concentration - Medications Active Medications: Active Medications Generic Name Dose Route Start Last Admin Trade Name Freq PRN Reason Stop Dose Admin Albuterol/Ipratropium 3 ml 06/01/16 08:00 06/02/16 07:55 Duoneb 3 Mg/0.5 Mg (3 Ml) Ud IH 3 ml [id number] YASSINE Administration Albuterol/Ipratropium 3 ml 06/01/16 04:54 Duoneb 3 Mg/0.5 Mg (3 Ml) Ud IH Q3 PRN Wheezing Aspirin 81 mg 06/01/16 13:30 06/02/16 09:24 Aspirin Chewable NG 81 mg DAILY YASSINE Administration Atorvastatin Calcium 20 mg 06/01/16 17:00 06/01/16 17:02 Lipitor NG 20 mg DIN YASSINE Administration Heparin Sodium (Porcine) 5,000 units 06/01/16 10:00 06/01/16 21:46 Heparin SC 5,000 units Q12 YASSINE Administration Protocol Norepinephrine Bitartrate 4 mg 254 mls @ 19.05 mls/hr 06/01/16 02:12 06/01/16 03:19 / Sodium Chloride IV 19.05 mls/hr .[id number] PRN Administration TITRATE PER MD ORDER Protocol 5 MCG/MIN Midazolam 100 mg/100ml in NS 100 mls @ 1 mls/hr 06/01/16 02:44 06/02/16 11:04 Midazolam 100 Mg/100ml In Ns IV 10 mls/hr .Q24H PRN Administration Sedation Protocol 1 MG/HR Vancomycin HCl 250 mls @ 167 mls/hr 06/01/16 17:00 06/02/16 07:05 Vancomycin 1gm IVPB 167 mls/hr Q12H YASSINE Administration Protocol Propofol 100 mls @ 2.33 mls/hr 06/01/16 07:32 06/02/16 04:41 Diprivan IV 13.9 mls/hr .Q24H PRN Administration TITRATE PER MD ORDER Protocol 5 MCG/KG/MIN Levetiracetam 100 mls @ 400 mls/hr 06/01/16 22:00 06/02/16 09:22 Keppra 500mg Ivpb IV 400 mls/hr Q12 YASSINE Administration Piperacillin Sod/Tazobactam Sod 100 mls @ 200 mls/hr 06/02/16 00:00 06/02/16 07 :42 Zosyn 3.375 In Ns 100ml IVPB 06/07/16 06:29 200 mls/hr Q6 YASSINE Administration Protocol Sodium Chloride 1,000 mls @ 125 mls/hr 06/02/16 07:45 06/02/16 07:46 Sodium Chloride 0.9% IV 125 mls/hr .Q8H YASSINE Administration Methylprednisolone 40 mg 06/01/16 10:00 06/02/16 09:23 Solu-Medrol IVP 40 mg Q12 YASSINE Administration Pantoprazole Sodium 40 mg 06/01/16 10:00 06/02/16 09:23 Protonix Inj IVP 40 mg DAILY YASSINE Administration - Patient Studies Lab Studies: Microbiology Studies 06/01/16 07:00 Urine Culture - Final Urine,Clean Catch No Growth (<1,000 CFU/ML) 06/01/16 03:00 Urine Culture - Final Urine No Growth (<1,000 CFU/ML) Lab Studies 06/02/16 06/02/16 06/02/16 Range/Units 07:30 06:54 06:00 WBC 15.8 H D (4.5-11.0) 10^3/ul RBC 3.30 L (3.5-6.1) 10^6/uL Hgb 9.6 L (12.0-16.0) gm/dL Hct 31.0 L (36.0-48.0) % MCV 93.9 (80.0-105.0) fL MCH 29.1 (25.0-35.0) pg MCHC 31.0 (31.0-37.0) g/dl RDW 16.3 H (11.5-14.5) % Plt Count 272 (120.0-450.0) 10^3/uL MPV 9.0 (7.0-11.0) fl pCO2 43 (35-45) mm/Hg pO2 132.0 H (80-100) mm/Hg HCO3 19.7 L (21-28) mmol/L ABG pH 7.27 L (7.35-7.45) ABG Total CO2 21.0 L (22-28) mmol.L ABG O2 Saturation 99.3 H (95-98) % ABG O2 Content 13.2 L (15-23) ML/dl ABG Base Excess -6.8 L (-2.0-3.0) mmol/L ABG Hemoglobin 9.5 L (11.7-17.4) g/dL ABG Carboxyhemoglobin 1.6 H (0.5-1.5) % POC ABG HHb (Measured) 0.7 (0-5) % ABG Methemoglobin 0.6 (0.0-3.0) % ABG O2 Capacity 13.3 L (16-24) mL/dl Hgb O2 Saturation 97.2 (95.0-98.0) % FiO2 40.0 % Sodium 144 (132-148) mmol/L Potassium 3.9 (3.6-5.0) mmol/L Chloride 112 H (98-107) mmol/L Carbon Dioxide 21 (21-33) mmol/L Anion Gap 15 (10-20) BUN 31 H (7-21) mg/dL Creatinine 1.6 H (0.5-1.4) mg/dL Est GFR ( Amer) 41 Est GFR (Non-Af Amer) 34 POC Glucose (mg/dL) 133 H (65-110) mg/dL Random Glucose 112 H (70-110) mg/dL Calcium 7.5 L (8.4-10.5) mg/dL Phosphorus 4.7 H (2.5-4.5) mg/dL Magnesium 2.1 (1.7-2.2) mg/dL Total Bilirubin 0.5 (0.2-1.3) mg/dL AST 179 H (15-39) U/L ALT 73 H (7-56) U/L Alkaline Phosphatase 110 (38-133) U/L Lactate Dehydrogenase (333-699) U/L Total Creatine Kinase (35-230) U/L CK-MB (CK-2) (0.0-3.6) ng/mL CK-MB (CK-2) % (2.5-3.0) % Troponin I ng/mL Total Protein 5.9 (5.8-8.3) g/dL Albumin 3.0 (3.0-4.8) g/dL Globulin 2.9 gm/dL Albumin/Globulin Ratio 1.0 L (1.1-1.8) Triglycerides (35-160) mg/dL Cholesterol (130-200) mg/dL LDL Cholesterol Direct (0-129) mg/dL HDL Cholesterol (29-60) mg/dL 06/01/ Range/Units 16:00 WBC (4.5-11.0) 10^3/ul RBC (3.5-6.1) 10^6/uL Hgb (12.0-16.0) gm/dL Hct (36.0-48.0) % MCV (80.0-105.0) fL MCH (25.0-35.0) pg MCHC (31.0-37.0) g/dl RDW (11.5-14.5) % Plt Count (120.0-450.0) 10^3/uL MPV (7.0-11.0) fl pCO2 (35-45) mm/Hg pO2 (80-100) mm/Hg HCO3 (21-28) mmol/L ABG pH (7.35-7.45) ABG Total CO2 (22-28) mmol.L ABG O2 Saturation (95-98) % ABG O2 Content (15-23) ML/dl ABG Base Excess (-2.0-3.0) mmol/L ABG Hemoglobin (11.7-17.4) g/dL ABG Carboxyhemoglobin (0.5-1.5) % POC ABG HHb (Measured) (0-5) % ABG Methemoglobin (0.0-3.0) % ABG O2 Capacity (16-24) mL/dl Hgb O2 Saturation (95.0-98.0) % FiO2 % Sodium (132-148) mmol/L Potassium (3.6-5.0) mmol/L Chloride (98-107) mmol/L Carbon Dioxide (21-33) mmol/L Anion Gap (10-20) BUN (7-21) mg/dL Creatinine (0.5-1.4) mg/dL Est GFR ( Amer) Est GFR (Non-Af Amer) POC Glucose (mg/dL) (65-110) mg/dL Random Glucose (70-110) mg/dL Calcium (8.4-10.5) mg/dL Phosphorus (2.5-4.5) mg/dL Magnesium (1.7-2.2) mg/dL Total Bilirubin (0.2-1.3) mg/dL AST (15-39) U/L ALT (7-56) U/L Alkaline Phosphatase (38-133) U/L Lactate Dehydrogenase 2463 H (333-699) U/L Total Creatine Kinase 2950 H (35-230) U/L CK-MB (CK-2) 16.5 H (0.0-3.6) ng/mL CK-MB (CK-2) % 0.6 L (2.5-3.0) % Troponin I 3.72 H* D ng/mL Total Protein (5.8-8.3) g/dL Albumin (3.0-4.8) g/dL Globulin gm/dL Albumin/Globulin Ratio (1.1-1.8) Triglycerides 233 H (35-160) mg/dL Cholesterol 119 L (130-200) mg/dL LDL Cholesterol Direct 39 (0-129) mg/dL HDL Cholesterol 37 (29-60) mg/dL Laboratory Results - last 24 hr 06/01/16 06/02/16 06/02/16 16:00 06:00 06:54 WBC 15.8 H D RBC 3.30 L Hgb 9.6 L Hct 31.0 L MCV 93.9 MCH 29.1 MCHC 31.0 RDW 16.3 H Plt Count 272 MPV 9.0 pCO2 pO2 HCO3 ABG pH ABG Total CO2 ABG O2 Saturation ABG O2 Content ABG Base Excess ABG Hemoglobin ABG Carboxyhemoglobin POC ABG HHb (Measured) ABG Methemoglobin ABG O2 Capacity Hgb O2 Saturation FiO2 Sodium 144 Potassium 3.9 Chloride 112 H Carbon Dioxide 21 Anion Gap 15 BUN 31 H Creatinine 1.6 H Est GFR ( Amer) 41 Est GFR (Non-Af Amer) 34 POC Glucose (mg/dL) 133 H Random Glucose 112 H Calcium 7.5 L Phosphorus 4.7 H Magnesium 2.1 Total Bilirubin 0.5 AST 179 H ALT 73 H Alkaline Phosphatase 110 Lactate Dehydrogenase 2463 H Total Creatine Kinase 2950 H CK-MB (CK-2) 16.5 H CK-MB (CK-2) % 0.6 L Troponin I 3.72 H* D Total Protein 5.9 Albumin 3.0 Globulin 2.9 Albumin/Globulin Ratio 1.0 L Triglycerides 233 H Cholesterol 119 L LDL Cholesterol Direct 39 HDL Cholesterol 37 06/02/16 07:30 WBC RBC Hgb Hct MCV MCH MCHC RDW Plt Count MPV pCO2 43 pO2 132.0 H HCO3 19.7 L ABG pH 7.27 L ABG Total CO2 21.0 L ABG O2 Saturation 99.3 H ABG O2 Content 13.2 L ABG Base Excess -6.8 L ABG Hemoglobin 9.5 L ABG Carboxyhemoglobin 1.6 H POC ABG HHb (Measured) 0.7 ABG Methemoglobin 0.6 ABG O2 Capacity 13.3 L Hgb O2 Saturation 97.2 FiO2 40.0 Sodium Potassium Chloride Carbon Dioxide Anion Gap BUN Creatinine Est GFR ( Amer) Est GFR (Non-Af Amer) POC Glucose (mg/dL) Random Glucose Calcium Phosphorus Magnesium Total Bilirubin AST ALT Alkaline Phosphatase Lactate Dehydrogenase Total Creatine Kinase CK-MB (CK-2) CK-MB (CK-2) % Troponin I Total Protein Albumin Globulin Albumin/Globulin Ratio Triglycerides Cholesterol LDL Cholesterol Direct HDL Cholesterol Fingerstick Blood Sugar Results: 130 Critical Care Progress Note - Ventilator Checklist Daily Assessment of Readiness to Wean: Yes PUD Prophalyxis: Yes DVT Prophylaxis: Yes - Vent Settings MODE:: ASSIST CONTROL - Extremities/Vascular Does the Patient have a Central Venous Catheter?: Yes Assessment/Plan - Assessment and Plan (Free Text) Assessment: 55 y/o F s/p cardiac arrest Opiod, Benzo, cocaine O.D Seizures Leukocytosis VDRF AG MEtabolic acidosis DEVON Currently awaitig EEG friday to determine is sedatives can be lowered for status PH improved, keep above 7.3 Off bicarbonate ggt. Continue normal saline On empiric abx , all cx pending. WBC improved. Sinusitis seen on CT On ac/vc , not ready for SBT. On Keppra, propofol and versed, Neurology following Devon resolving, urine output improving. Awaiting the first 48hrs before determining neurological status. Prognosis due to prolonged seizures and downtime CPR 35 minutes. cc time 65 min
--- NOTE | 2016-06-02 13:18 | PN ---
DATE: 06/02/2016 The patient is sedated on the vent; however, she is unresponsive. She does have spontaneous breathin g. CT scan of the head has not been repeated yet. PHYSICAL EXAMINATION: VITAL SIGNS: Blood pressure 119/77, heart rate 110, temperature 98.4, respirations 25. HEENT: Pale conjunctivae. CHEST: Bilateral rhonchi. HEART: S1, S2 regular. EXTREMITIES: Trace leg edema. LABORATORIES: Hemoglobin and hematocrit 9.6 and 31.0 respectively. White count and platelet count a re 15.8 and 272,000. SMA-7: Sodium 144, potassium 3.9, chloride 112, CO2 21, glucose 112, BUN 31, c reatinine 1.6. Troponin yesterday was 3.72. Total creatine kinase is 2950. Total cholesterol 119, triglycerides 233. Echocardiograph study revealed severely depressed ejection fraction with signific ant septal as well as inferolateral hypokinesis. ASSESSMENT: 1. Status post cardiac arrest. 2. Cocaine abuse. 3. Rule out anoxic encephalopathy. 4. Consider ischemic cardiomyopathy. 5. History of depression. 6. History of chronic obstructive pulmonary disease. RECOMMENDATIONS: Continue aspirin at 81 mg once a day, subcutaneous heparin 5000 units twice a day, Solu-Medrol at 40 mg intravenously twice a day, IV vancomycin at 1 gram twice a day, IV Zosyn at 3.37 5 grams intravenously q. 6 hours, Lipitor at 20 mg via nasogastric tube. The patient will undergo re peat CT scan today and following that, full anticoagulation regimen will be started if results of the CAT scan of the head allows. The case was discussed with the [facility] former yesterday. In the meantim e, no family member or friend has shown up to discuss the case and future plans with him. Elvin Dillon MD cc: [id number] TT: 06/02/2016 13:17:39 Confirmation # [id number] Dictation # [id number] en
--- NOTE | 2016-06-02 18:41 | CP.PCM.PN ---
Subjective - Date & Time of Evaluation Date of Evaluation: 06/02/16 Time of Evaluation: 17:00 - Subjective Subjective: Infectious Disease Follow Up: June 02, 2016 55 yo female with multiple medical problems including rheumatoid arthritis and rheumatoid lung disease, hypertension, end stage COPD, multiple UTIs, and endometriosis. The patient also has an extensive history of substance abuse to the point where she attempted to sniff a powdered substance when she was in the [facility] in March 2016. The patient had cardiac arrest at home. She was down for 10 minutes when EMS arrived and had CPR for 37 minutes. Patient was found in asystole by EMS and gave 4 rounds of epinephrine until pulse returned which was V. fib. EMS shocked patient. As per family, empty bottles of tamezepam and cough medicine with codeine. Patient is currently intubated and ventilated. Extremely poor prognosis. No real improvement in the patient's mentation. [facility] came to evaluated the patient. Downtrending leukocytosis. Objective - Vital Signs/Intake and Output Vital Signs (last 24 hours): Temp Pulse Resp BP Pulse Ox 97 F L 107 H 20 119/77 99 06/02/16 11:42 06/02/16 10:49 06/02/16 10:49 06/02/16 07:17 06/01/16 04:34 Intake and Output: 06/02/16 06/02/16 06:59 18:59 Intake Total 1935 2476 Output Total 500 175 Balance 1435 2301 - Medications Medications: Current Medications Albuterol/Ipratropium (Duoneb 3 Mg/0.5 Mg (3 Ml) Ud) 3 ml [id number] Last Admin: 06/02/16 13:10 Dose: 3 ml Albuterol/Ipratropium (Duoneb 3 Mg/0.5 Mg (3 Ml) Ud) 3 ml IH Q3 PRN PRN Reason: Wheezing Aspirin (Aspirin Chewable) 81 mg NG DAILY [facility] Last Admin: 06/02/16 09:24 Dose: 81 mg Atorvastatin Calcium (Lipitor) 20 mg NG DIN [facility] Last Admin: 06/02/16 17:00 Dose: 20 mg Heparin Sodium (Porcine) (Heparin) 5,000 units SC Q12 YASSINE PRN Reason: Protocol Last Admin: 06/02/16 10:00 Dose: 5,000 units Norepinephrine Bitartrate 4 mg (/ Sodium Chloride) 254 mls @ 19.05 mls/hr IV .[id number] PRN; Protocol; 5 MCG/MIN PRN Reason: TITRATE PER MD ORDER Last Admin: 06/01/16 03:19 Dose: 19.05 mls/hr Midazolam 100 mg/100ml in NS (Midazolam 100 Mg/100ml In Ns) 100 mls @ 1 mls/hr IV .Q24H PRN; Protocol; 1 MG/HR PRN Reason: Sedation Last Admin: 06/02/16 11:04 Dose: 10 mls/hr Vancomycin HCl (Vancomycin 1gm) 250 mls @ 167 mls/hr IVPB Q12H YASSINE PRN Reason: Protocol Last Admin: 06/02/16 17:17 Dose: 167 mls/hr Propofol (Diprivan) 100 mls @ 2.33 mls/hr IV .Q24H PRN; Protocol; 5 MCG/KG/MIN PRN Reason: TITRATE PER MD ORDER Last Admin: 06/02/16 04:41 Dose: 13.9 mls/hr Levetiracetam (Keppra 500mg Ivpb) 100 mls @ 400 mls/hr IV Q12 YASSINE Last Admin: 06/02/16 09:22 Dose: 400 mls/hr Piperacillin Sod/Tazobactam Sod (Zosyn 3.375 In Ns 100ml) 100 mls @ 200 mls/hr IVPB Q6 YASSINE PRN Reason: Protocol Stop: 06/07/16 06:29 Last Admin: 06/02/16 17:02 Dose: 200 mls/hr Sodium Chloride (Sodium Chloride 0.9%) 1,000 mls @ 125 mls/hr IV .Q8H YASSINE Last Admin: 06/02/16 07:46 Dose: 125 mls/hr Pantoprazole Sodium (Protonix Inj) 40 mg IVP DAILY YASSINE Last Admin: 06/02/16 09:23 Dose: 40 mg - Labs Labs: 06/02/16 06:00 06/02/16 06:00 PT 12.1 Seconds (9.9-11.8) H 06/01/16 02:30 INR 1.12 (0.93-1.08) H 06/01/16 02:30 APTT 32.0 Seconds (23.7-30.8) H 06/01/16 02:30 - Constitutional Appears: Chronically Ill - Head Exam Additional comments: intubated and ventilated. - Eye Exam Additional comments: pinpoint and sluggish to the point of being nonreactive. - ENT Exam ENT Exam: Mucous Membranes Moist, Normal External Ear Exam, TM's Normal Bilaterally Additional comments: intubated and ventilated. - Neck Exam Additional comments: intubated and ventilated. - Respiratory Exam Respiratory Exam: Clear to Ausculation Bilateral, NORMAL BREATHING PATTERN. absent: Rales, Rhonchi, Wheezes - Cardiovascular Exam Cardiovascular Exam: REGULAR RHYTHM, RRR, +S1, +S2 - GI/Abdominal Exam GI & Abdominal Exam: Soft, Normal Bowel Sounds. absent: Distended, Tenderness - Extremities Exam Extremities Exam: Normal Inspection - Neurological Exam Additional comments: intubated and ventilated. non-responsive so far. Assessment and Plan - Assessment and Plan (Free Text) Assessment: 55 yo female found unresponsive at home and down for at least 47 minutes pulseless. The patient had a cardiac arrest. The patient is currently intubated and ventilated. Very poorly responsive. Pupils pinpoint and sluggish. The patient has leukocytosis up to 22. Started on antibiotics of Vancomycin currently. Very poor prognosis at this point. Leukocytosis can be due to the cardiac arrest, anoxia, or infection. Multiple medical issues. Supportive care. Cardiac Shock more likely than Septic Shock. Overdose on Codeine and Benzodiazepene. Cocaine Use (still active user). Acute kidney injury likely secondary to hypoperfusion. Extremely poor prognosis for this patient at this time. Will continue with Vancomycin and Zosyn for treatment if there is an infectious issue. Leukocytosis improved to 15.8 today. Very poor prognosis. [facility] came to evaluate the patient. Thank you for allowing me to participate in the care of the patient, we will follow with you.
[2016-06-03] MEDS: Piperacillin/Tazobact 3.375 gm 100 ML IVPB SCH ×4 (01:00→18:59)
[2016-06-03] MEDS: Albuterol-Ipratrop 3 mg / 0.5 (3 ml) UD IH SCH ×2 (03:01→20:45)
[2016-06-03] MEDS: Vancomycin 1gm in NS 250ml 250 ML IVPB SCH ×2 (05:00→19:04)
[2016-06-03] MEDS: Sodium Chloride 0.9% 1,000 ML IV SCH ×3 (05:00→22:08)
[2016-06-03 06:13] LABS: HEMATOCRIT 29.8 % (36.0-48.0); MEAN CELL VOLUME 94.9 fL (80.0-105.0); MEAN CORPUSCULAR HGB CONC 30.5 g/dl (31.0-37.0); MEAN PLATELET VOLUME 9.3 fl (7.0-11.0); RED CELL DISTRIBUTION WIDTH 16.2 % (11.5-14.5); WHITE BLOOD COUNT 12.6 10^3/ul (4.5-11.0)
[2016-06-03 06:23] LABS: BILIRUBIN,TOTAL 0.4 mg/dL (0.2-1.3); MAGNESIUM 2.1 mg/dL (1.7-2.2); PHOSPHOROUS 2.9 mg/dL (2.5-4.5); POTASSIUM 3.8 mmol/L (3.6-5.0); TOTAL PROTEIN 5.4 g/dL (5.8-8.3)
[2016-06-03 06:23] LABS: ARTERIAL BLOOD GAS HCO3 20.3 mmol/L (21-28); ARTERIAL BLOOD GAS O2 CAPACITY 12.1 mL/dl (16-24); ARTERIAL BLOOD GAS PH 7.36 (7.35-7.45); ARTERIAL BLOOD HGB O2 SAT 96.6 % (95.0-98.0); CARBOXYHEMOGLOBIN 1.4 % (0.5-1.5); HHB 0.7 % (0-5); METHEMOGLOBIN 1.3 % (0.0-3.0)
--- NOTE | 2016-06-03 07:38 | CP.CCUPN ---
<Kasia Toro - Last Filed: 06/03/16 16:50> CCU Subjective - Physician Review Events Since Last Encounter (Free Text): 06/03/16 16:50 Patient seen and examined bedside. No acute events overnight. [facility] day #3, currently on PRVC 440/20/40%/5, sedated on propofol. Not responsive to painful stimuli. Going for EEG today, will hold sedation prior to EEG. Critical Care Time Spent (in minutes): 40 CCU Objective - Vital Signs / Intake & Output Vital Signs (Last 4 hours): Vital Signs Temp Pulse 06/03/16 06:49 79 06/03/16 06:48 98.7 F 92 H 06/03/16 06:47 98.9 F Intake and Output (Last 8hrs): Intake & Output 06/02/16 06/03/16 06/03/16 22:59 06:59 14:59 Intake Total 2476 1935 Output Total 175 1000 Balance 2301 935 Weight 185 lb 5 oz Intake: IV 1485 versed 110 0.9 NS 1L 1375 Other 2476 450 Output: Urine 175 1000 Urethral (Rnagel) 175 1000 Other: Voiding Method Indwelling Catheter # Bowel Movements 0 - Physical Exam Head: Positive for: Atraumatic, Normocephalic Pupils: Positive for: PERRL, Sluggish, Pinpoint (unequal pupil ) Extroacular Muscles: Positive for: EOMI Conjunctiva: Positive for: Normal Mouth: Positive for: Moist Mucous Membranes Neck: Positive for: Normal Range of Motion Respiratory/Chest: Positive for: Other (poor air exchange ) Cardiovascular: Positive for: Tachycardic, Other (+faint right femoral pulse). Negative for: Murmurs, Rub, Gallop Abdomen: Positive for: Normal Bowel Sounds. Negative for: Tenderness, Distention, Peritoneal Signs, Rebound, Guarding Back: Positive for: Normal Inspection Upper Extremity: Positive for: Normal Inspection. Negative for: Cyanosis, Edema Lower Extremity: Positive for: Normal Inspection, NORMAL PULSES. Negative for: Edema Neurological: Positive for: Other (no neurologicla function canbe determined a pt has been actively seizing. ) Skin: Positive for: Warm, Dry, Normal Color. Negative for: Rashes Psychiatric: Positive for: Alert, Normal Insight, Normal Concentration - Medications Active Medications: Active Medications Generic Name Dose Route Start Last Admin Trade Name Freq PRN Reason Stop Dose Admin Albuterol/Ipratropium 3 ml 06/01/16 08:00 06/03/16 03:01 Duoneb 3 Mg/0.5 Mg (3 Ml) Ud IH 3 ml [id number] YASSINE Administration Albuterol/Ipratropium 3 ml 06/01/16 04:54 Duoneb 3 Mg/0.5 Mg (3 Ml) Ud IH Q3 PRN Wheezing Aspirin 81 mg 06/01/16 13:30 06/02/16 09:24 Aspirin Chewable NG 81 mg DAILY YASSINE Administration Atorvastatin Calcium 20 mg 06/01/16 17:00 06/02/16 17:00 Lipitor NG 20 mg DIN YASSINE Administration Heparin Sodium (Porcine) 5,000 units 06/01/16 10:00 06/02/16 21:10 Heparin SC 5,000 units Q12 YASSINE Administration Protocol Norepinephrine Bitartrate 4 mg 254 mls @ 19.05 mls/hr 06/01/16 02:12 06/01/16 03:19 / Sodium Chloride IV 19.05 mls/hr .[id number] PRN Administration TITRATE PER MD ORDER Protocol 5 MCG/MIN Midazolam 100 mg/100ml in NS 100 mls @ 1 mls/hr 06/01/16 02:44 06/02/16 21:45 Midazolam 100 Mg/100ml In Ns IV 10 mls/hr .Q24H PRN Administration Sedation Protocol 1 MG/HR Vancomycin HCl 250 mls @ 167 mls/hr 06/01/16 17:00 06/03/16 05:00 Vancomycin 1gm IVPB 167 mls/hr Q12H YASSINE Administration Protocol Propofol 100 mls @ 2.33 mls/hr 06/01/16 07:32 06/03/16 01:21 Diprivan IV 13.982 mls/hr .Q24H PRN Administration TITRATE PER MD ORDER Protocol 5 MCG/KG/MIN Levetiracetam 100 mls @ 400 mls/hr 06/01/16 22:00 06/02/16 21:05 Keppra 500mg Ivpb IV 400 mls/hr Q12 YASSINE Administration Piperacillin Sod/Tazobactam Sod 100 mls @ 200 mls/hr 06/02/16 00:00 06/03/16 06 :15 Zosyn 3.375 In Ns 100ml IVPB 06/07/16 06:29 200 mls/hr Q6 YASSINE Administration Protocol Sodium Chloride 1,000 mls @ 125 mls/hr 06/02/16 07:45 06/03/16 05:00 Sodium Chloride 0.9% IV 125 mls/hr .Q8H YASSINE Administration Pantoprazole Sodium 40 mg 06/01/16 10:00 06/02/16 09:23 Protonix Inj IVP 40 mg DAILY YASSINE Administration - Patient Studies Lab Studies: Microbiology Studies 06/01/16 07:26 MRSA Culture (Admit) - Final Nose MRSA DETECTED 06/01/16 07:00 Urine Culture - Final Urine,Clean Catch No Growth (<1,000 CFU/ML) 06/01/16 03:00 Urine Culture - Final Urine No Growth (<1,000 CFU/ML) Lab Studies 06/03/16 06/03/16 06/03/16 Range/Units 06:15 05:31 05:30 WBC 12.6 H D (4.5-11.0) 10^3/ul RBC 3.14 L (3.5-6.1) 10^6/uL Hgb 9.1 L (12.0-16.0) gm/dL Hct 29.8 L (36.0-48.0) % MCV 94.9 (80.0-105.0) fL MCH 29.0 (25.0-35.0) pg MCHC 30.5 L (31.0-37.0) g/dl RDW 16.2 H (11.5-14.5) % Plt Count 238 (120.0-450.0) 10^3/uL MPV 9.3 (7.0-11.0) fl pCO2 36 (35-45) mm/Hg pO2 141.0 H (80-100) mm/Hg HCO3 20.3 L (21-28) mmol/L ABG pH 7.36 (7.35-7.45) ABG Total CO2 21.4 L (22-28) mmol.L ABG O2 Saturation 99.3 H (95-98) % ABG O2 Content 12.0 L (15-23) ML/dl ABG Base Excess -4.7 L (-2.0-3.0) mmol/L ABG Hemoglobin 8.6 L (11.7-17.4) g/dL ABG Carboxyhemoglobin 1.4 (0.5-1.5) % POC ABG HHb (Measured) 0.7 (0-5) % ABG Methemoglobin 1.3 (0.0-3.0) % ABG O2 Capacity 12.1 L (16-24) mL/dl Hgb O2 Saturation 96.6 (95.0-98.0) % FiO2 40.0 % Sodium 148 (132-148) mmol/L Potassium 3.8 (3.6-5.0) mmol/L Chloride 115 H (98-107) mmol/L Carbon Dioxide 23 (21-33) mmol/L Anion Gap 14 (10-20) BUN 35 H (7-21) mg/dL Creatinine 1.4 (0.5-1.4) mg/dL Est GFR ( Amer) 48 Est GFR (Non-Af Amer) 39 POC Glucose (mg/dL) 100 (65-110) mg/dL Random Glucose 89 (70-110) mg/dL Calcium 8.0 L (8.4-10.5) mg/dL Phosphorus 2.9 (2.5-4.5) mg/dL Magnesium 2.1 (1.7-2.2) mg/dL Total Bilirubin 0.4 (0.2-1.3) mg/dL AST 141 H (15-39) U/L ALT 60 H (7-56) U/L Alkaline Phosphatase 95 (38-133) U/L Total Protein 5.4 L (5.8-8.3) g/dL Albumin 2.7 L (3.0-4.8) g/dL Globulin 2.7 gm/dL Albumin/Globulin Ratio 1.0 L (1.1-1.8) 06/03/16 06/02/16 Range/Units 00:00 07:30 WBC (4.5-11.0) 10^3/ul RBC (3.5-6.1) 10^6/uL Hgb (12.0-16.0) gm/dL Hct (36.0-48.0) % MCV (80.0-105.0) fL MCH (25.0-35.0) pg MCHC (31.0-37.0) g/dl RDW (11.5-14.5) % Plt Count (120.0-450.0) 10^3/uL MPV (7.0-11.0) fl pCO2 43 (35-45) mm/Hg pO2 132.0 H (80-100) mm/Hg HCO3 19.7 L (21-28) mmol/L ABG pH 7.27 L (7.35-7.45) ABG Total CO2 21.0 L (22-28) mmol.L ABG O2 Saturation 99.3 H (95-98) % ABG O2 Content 13.2 L (15-23) ML/dl ABG Base Excess -6.8 L (-2.0-3.0) mmol/L ABG Hemoglobin 9.5 L (11.7-17.4) g/dL ABG Carboxyhemoglobin 1.6 H (0.5-1.5) % POC ABG HHb (Measured) 0.7 (0-5) % ABG Methemoglobin 0.6 (0.0-3.0) % ABG O2 Capacity 13.3 L (16-24) mL/dl Hgb O2 Saturation 97.2 (95.0-98.0) % FiO2 40.0 % Sodium (132-148) mmol/L Potassium (3.6-5.0) mmol/L Chloride (98-107) mmol/L Carbon Dioxide (21-33) mmol/L Anion Gap (10-20) BUN (7-21) mg/dL Creatinine (0.5-1.4) mg/dL Est GFR ( Amer) Est GFR (Non-Af Amer) POC Glucose (mg/dL) 96 (65-110) mg/dL Random Glucose (70-110) mg/dL Calcium (8.4-10.5) mg/dL Phosphorus (2.5-4.5) mg/dL Magnesium (1.7-2.2) mg/dL Total Bilirubin (0.2-1.3) mg/dL AST (15-39) U/L ALT (7-56) U/L Alkaline Phosphatase (38-133) U/L Total Protein (5.8-8.3) g/dL Albumin (3.0-4.8) g/dL Globulin gm/dL Albumin/Globulin Ratio (1.1-1.8) Laboratory Results - last 24 hr 06/02/16 06/03/16 06/03/16 07:30 00:00 05:30 WBC 12.6 H D RBC 3.14 L Hgb 9.1 L Hct 29.8 L MCV 94.9 MCH 29.0 MCHC 30.5 L RDW 16.2 H Plt Count 238 MPV 9.3 pCO2 43 pO2 132.0 H HCO3 19.7 L ABG pH 7.27 L ABG Total CO2 21.0 L ABG O2 Saturation 99.3 H ABG O2 Content 13.2 L ABG Base Excess -6.8 L ABG Hemoglobin 9.5 L ABG Carboxyhemoglobin 1.6 H POC ABG HHb (Measured) 0.7 ABG Methemoglobin 0.6 ABG O2 Capacity 13.3 L Hgb O2 Saturation 97.2 FiO2 40.0 Sodium 148 Potassium 3.8 Chloride 115 H Carbon Dioxide 23 Anion Gap 14 BUN 35 H Creatinine 1.4 Est GFR ( Amer) 48 Est GFR (Non-Af Amer) 39 POC Glucose (mg/dL) 96 Random Glucose 89 Calcium 8.0 L Phosphorus 2.9 Magnesium 2.1 Total Bilirubin 0.4 AST 141 H ALT 60 H Alkaline Phosphatase 95 Total Protein 5.4 L Albumin 2.7 L Globulin 2.7 Albumin/Globulin Ratio 1.0 L 06/03/16 06/03/16 05:31 06:15 WBC RBC Hgb Hct MCV MCH MCHC RDW Plt Count MPV pCO2 36 pO2 141.0 H HCO3 20.3 L ABG pH 7.36 ABG Total CO2 21.4 L ABG O2 Saturation 99.3 H ABG O2 Content 12.0 L ABG Base Excess -4.7 L ABG Hemoglobin 8.6 L ABG Carboxyhemoglobin 1.4 POC ABG HHb (Measured) 0.7 ABG Methemoglobin 1.3 ABG O2 Capacity 12.1 L Hgb O2 Saturation 96.6 FiO2 40.0 Sodium Potassium Chloride Carbon Dioxide Anion Gap BUN Creatinine Est GFR ( Amer) Est GFR (Non-Af Amer) POC Glucose (mg/dL) 100 Random Glucose Calcium Phosphorus Magnesium Total Bilirubin AST ALT Alkaline Phosphatase Total Protein Albumin Globulin Albumin/Globulin Ratio EKG/Cardiology Studies: Cardiology / EKG Studies 06/02/16 14:00 EKG [ELECTROCARDIOGRAM] DAILY Comment: Reason For Exam: followup Fingerstick Blood Sugar Results: 96 Review of Systems - Review of Systems Systems not reviewed;Unavailable: Intubated Critical Care Progress Note - Ventilator Checklist PUD Prophalyxis: Yes DVT Prophylaxis: Yes - Vent Settings MODE:: PRVC Assessment/Plan - Assessment and Plan (Free Text) Assessment: 55 y/o female with PMH of COPD, Hx of overdose and suicide attempt presents with cardiac arrest and drug overdose to ICU. Pt remains intubated and sedated, on pressors. Neurology recommends pt continue Keppra for seizure activity and repeat Head CT, findings seen below. ID recommends Vanco and Zosyn for possible infectious issues. Pt will undergo EEG today and have sedation stopped for a short time to evaluate level of consciousness. Pt will remain in the ICU at this time, prognosis is poor. Plan: Neuro: Not responsive to painful stimuli, minimal pupillary response Repeat head CT shows findings suggestive of diffuse brain edema and increased intracranial pressure. Possibility of multi territorial infarcts cannot be excluded. Slight midline shift and moderate sinuses mucosal disease. Continue Keppra for seizure-like activity Hold sedation for EEG today CV: s/p cardiac arrest 2/2 cocaine, benzo and opiate overdose Possible cardiogenic shock. Troponins peaked at 3.72. Continue to trend Off all pressors Maintain MAP>65 2D ECHO shows LVEF 30-35%, septal and inferolateral hypokinesis, mild MR, grade I diastolic dysfunction Pulm: VDRF Day #3, Currently on PRVC 440/20/40%/5. Maintain Sp02>90, PaO2>60 Currently off sedation pending EEG Daily CXR and ABG while intubated. Currently fully compensated metabolic acidosis GI: GI ppx Transaminitis slowly improving. Continue to monitor Heme: Hb 9.1, stable. No signs of bleeding Renal/: JB improving. Cr 1.4 from 1.7. GFR 39 from 31 at admission. 1175cc output/24 hours, improved. Continue NS @125cc/hr Maintain euvolemnia. Continue monitoring renal function, I&Os Endo: Maintain euglycemia 140-180 ID: Leukocytosis steadily improving currently 12.6. Sinusitis seen on CT head. Continue Vanc, zosyn Maintain normothermia DVT/GI ppx: SQH, Protonix, NPO - Date & Time Date: 06/03/16 Time: 16:52 <Brenna SEGURA,Inamul H - Last Filed: 06/03/16 18:05> CCU Objective - Vital Signs / Intake & Output Intake and Output (Last 8hrs): Intake & Output 06/03/16 06/03/16 06/03/16 06:59 14:59 22:59 Intake Total 1935 Output Total 1000 Balance 935 Weight 185 lb 5 oz Intake: IV 1485 versed 110 0.9 NS 1L 1375 Other 450 Output: Urine 1000 Urethral (Rangel) 1000 - Medications Active Medications: Active Medications Generic Name Dose Route Start Last Admin Trade Name Freq PRN Reason Stop Dose Admin Albuterol/Ipratropium 3 ml 06/01/16 08:00 06/03/16 03:01 Duoneb 3 Mg/0.5 Mg (3 Ml) Ud IH 3 ml [id number] YASSINE Administration Albuterol/Ipratropium 3 ml 06/01/16 04:54 Duoneb 3 Mg/0.5 Mg (3 Ml) Ud IH Q3 PRN Wheezing Aspirin 81 mg 06/01/16 13:30 06/03/16 10:19 Aspirin Chewable NG 81 mg DAILY YASSINE Administration Atorvastatin Calcium 20 mg 06/01/16 17:00 06/02/16 17:00 Lipitor NG 20 mg DIN YASSINE Administration Heparin Sodium (Porcine) 5,000 units 06/01/16 10:00 06/03/16 10:19 Heparin SC 5,000 units Q12 YASSINE Administration Protocol Norepinephrine Bitartrate 4 mg 254 mls @ 19.05 mls/hr 06/01/16 02:12 06/01/16 03:19 / Sodium Chloride IV 19.05 mls/hr .[id number] PRN Administration TITRATE PER MD ORDER Protocol 5 MCG/MIN Midazolam 100 mg/100ml in NS 100 mls @ 1 mls/hr 06/01/16 02:44 06/02/16 21:45 Midazolam 100 Mg/100ml In Ns IV 10 mls/hr .Q24H PRN Administration Sedation Protocol 1 MG/HR Vancomycin HCl 250 mls @ 167 mls/hr 06/01/16 17:00 06/03/16 05:00 Vancomycin 1gm IVPB 167 mls/hr Q12H YASSINE Administration Protocol Propofol 100 mls @ 2.33 mls/hr 06/01/16 07:32 06/03/16 01:21 Diprivan IV 13.982 mls/hr .Q24H PRN Administration TITRATE PER MD ORDER Protocol 5 MCG/KG/MIN Levetiracetam 100 mls @ 400 mls/hr 06/01/16 22:00 06/03/16 10:23 Keppra 500mg Ivpb IV 400 mls/hr Q12 YASSINE Administration Piperacillin Sod/Tazobactam Sod 100 mls @ 200 mls/hr 06/02/16 00:00 06/03/16 11 :17 Zosyn 3.375 In Ns 100ml IVPB 06/07/16 06:29 200 mls/hr Q6 YASSINE Administration Protocol Sodium Chloride 1,000 mls @ 125 mls/hr 06/02/16 07:45 06/03/16 13:34 Sodium Chloride 0.9% IV 125 mls/hr .Q8H YASSINE Administration Pantoprazole Sodium 40 mg 06/01/16 10:00 06/03/16 10:20 Protonix Inj IVP 40 mg DAILY YASSINE Administration - Patient Studies Lab Studies: Microbiology Studies 06/01/16 07:26 MRSA Culture (Admit) - Final Nose MRSA DETECTED Lab Studies 06/03/16 06/03/16 06/03/16 Range/Units 06:15 05:31 05:30 WBC 12.6 H D (4.5-11.0) 10^3/ul RBC 3.14 L (3.5-6.1) 10^6/uL Hgb 9.1 L (12.0-16.0) gm/dL Hct 29.8 L (36.0-48.0) % MCV 94.9 (80.0-105.0) fL MCH 29.0 (25.0-35.0) pg MCHC 30.5 L (31.0-37.0) g/dl RDW 16.2 H (11.5-14.5) % Plt Count 238 (120.0-450.0) 10^3/uL MPV 9.3 (7.0-11.0) fl pCO2 36 (35-45) mm/Hg pO2 141.0 H (80-100) mm/Hg HCO3 20.3 L (21-28) mmol/L ABG pH 7.36 (7.35-7.45) ABG Total CO2 21.4 L (22-28) mmol.L ABG O2 Saturation 99.3 H (95-98) % ABG O2 Content 12.0 L (15-23) ML/dl ABG Base Excess -4.7 L (-2.0-3.0) mmol/L ABG Hemoglobin 8.6 L (11.7-17.4) g/dL ABG Carboxyhemoglobin 1.4 (0.5-1.5) % POC ABG HHb (Measured) 0.7 (0-5) % ABG Methemoglobin 1.3 (0.0-3.0) % ABG O2 Capacity 12.1 L (16-24) mL/dl Hgb O2 Saturation 96.6 (95.0-98.0) % FiO2 40.0 % Sodium 148 (132-148) mmol/L Potassium 3.8 (3.6-5.0) mmol/L Chloride 115 H (98-107) mmol/L Carbon Dioxide 23 (21-33) mmol/L Anion Gap 14 (10-20) BUN 35 H (7-21) mg/dL Creatinine 1.4 (0.5-1.4) mg/dL Est GFR ( Amer) 48 Est GFR (Non-Af Amer) 39 POC Glucose (mg/dL) 100 (65-110) mg/dL Random Glucose 89 (70-110) mg/dL Calcium 8.0 L (8.4-10.5) mg/dL Phosphorus 2.9 (2.5-4.5) mg/dL Magnesium 2.1 (1.7-2.2) mg/dL Total Bilirubin 0.4 (0.2-1.3) mg/dL AST 141 H (15-39) U/L ALT 60 H (7-56) U/L Alkaline Phosphatase 95 (38-133) U/L Total Protein 5.4 L (5.8-8.3) g/dL Albumin 2.7 L (3.0-4.8) g/dL Globulin 2.7 gm/dL Albumin/Globulin Ratio 1.0 L (1.1-1.8) Hepatitis A IgM Ab (NEGATIVE) Hep Bs Antigen (NEGATIVE) Hep B Core IgM Ab (NEGATIVE) Hepatitis C Antibody (NEGATIVE) 06/03/16 06/01/16 Range/Units 00:00 16:00 WBC (4.5-11.0) 10^3/ul RBC (3.5-6.1) 10^6/uL Hgb (12.0-16.0) gm/dL Hct (36.0-48.0) % MCV (80.0-105.0) fL MCH (25.0-35.0) pg MCHC (31.0-37.0) g/dl RDW (11.5-14.5) % Plt Count (120.0-450.0) 10^3/uL MPV (7.0-11.0) fl pCO2 (35-45) mm/Hg pO2 (80-100) mm/Hg HCO3 (21-28) mmol/L ABG pH (7.35-7.45) ABG Total CO2 (22-28) mmol.L ABG O2 Saturation (95-98) % ABG O2 Content (15-23) ML/dl ABG Base Excess (-2.0-3.0) mmol/L ABG Hemoglobin (11.7-17.4) g/dL ABG Carboxyhemoglobin (0.5-1.5) % POC ABG HHb (Measured) (0-5) % ABG Methemoglobin (0.0-3.0) % ABG O2 Capacity (16-24) mL/dl Hgb O2 Saturation (95.0-98.0) % FiO2 % Sodium (132-148) mmol/L Potassium (3.6-5.0) mmol/L Chloride (98-107) mmol/L Carbon Dioxide (21-33) mmol/L Anion Gap (10-20) BUN (7-21) mg/dL Creatinine (0.5-1.4) mg/dL Est GFR ( Amer) Est GFR (Non-Af Amer) POC Glucose (mg/dL) 96 (65-110) mg/dL Random Glucose (70-110) mg/dL Calcium (8.4-10.5) mg/dL Phosphorus (2.5-4.5) mg/dL Magnesium (1.7-2.2) mg/dL Total Bilirubin (0.2-1.3) mg/dL AST (15-39) U/L ALT (7-56) U/L Alkaline Phosphatase (38-133) U/L Total Protein (5.8-8.3) g/dL Albumin (3.0-4.8) g/dL Globulin gm/dL Albumin/Globulin Ratio (1.1-1.8) Hepatitis A IgM Ab Negative (NEGATIVE) Hep Bs Antigen Negative (NEGATIVE) Hep B Core IgM Ab Negative (NEGATIVE) Hepatitis C Antibody Negative (NEGATIVE) Laboratory Results - last 24 hr 06/01/16 06/03/16 06/03/16 16:00 00:00 05:30 WBC 12.6 H D RBC 3.14 L Hgb 9.1 L Hct 29.8 L MCV 94.9 MCH 29.0 MCHC 30.5 L RDW 16.2 H Plt Count 238 MPV 9.3 pCO2 pO2 HCO3 ABG pH ABG Total CO2 ABG O2 Saturation ABG O2 Content ABG Base Excess ABG Hemoglobin ABG Carboxyhemoglobin POC ABG HHb (Measured) ABG Methemoglobin ABG O2 Capacity Hgb O2 Saturation FiO2 Sodium 148 Potassium 3.8 Chloride 115 H Carbon Dioxide 23 Anion Gap 14 BUN 35 H Creatinine 1.4 Est GFR ( Amer) 48 Est GFR (Non-Af Amer) 39 POC Glucose (mg/dL) 96 Random Glucose 89 Calcium 8.0 L Phosphorus 2.9 Magnesium 2.1 Total Bilirubin 0.4 AST 141 H ALT 60 H Alkaline Phosphatase 95 Total Protein 5.4 L Albumin 2.7 L Globulin 2.7 Albumin/Globulin Ratio 1.0 L Hepatitis A IgM Ab Negative Hep Bs Antigen Negative Hep B Core IgM Ab Negative Hepatitis C Antibody Negative 06/03/16 06/03/16 05:31 06:15 WBC RBC Hgb Hct MCV MCH MCHC RDW Plt Count MPV pCO2 36 pO2 141.0 H HCO3 20.3 L ABG pH 7.36 ABG Total CO2 21.4 L ABG O2 Saturation 99.3 H ABG O2 Content 12.0 L ABG Base Excess -4.7 L ABG Hemoglobin 8.6 L ABG Carboxyhemoglobin 1.4 POC ABG HHb (Measured) 0.7 ABG Methemoglobin 1.3 ABG O2 Capacity 12.1 L Hgb O2 Saturation 96.6 FiO2 40.0 Sodium Potassium Chloride Carbon Dioxide Anion Gap BUN Creatinine Est GFR ( Amer) Est GFR (Non-Af Amer) POC Glucose (mg/dL) 100 Random Glucose Calcium Phosphorus Magnesium Total Bilirubin AST ALT Alkaline Phosphatase Total Protein Albumin Globulin Albumin/Globulin Ratio Hepatitis A IgM Ab Hep Bs Antigen Hep B Core IgM Ab Hepatitis C Antibody Attending/Attestation - Attestation I have personally seen and examined this patient.: Yes I have fully participated in the care of the patient.: Yes I have reviewed all pertinent clinical information: Yes Notes (Text): 06/03/16 18:01 55 y/o F s/p Cardiac Arrest Elecit drug OD w/ Cocaine, opiod, Benzodiazapenes VDRF on 40 % keep pa02>60 Seizures on Keppra, Propofol and Versed, currently being weaned to check for Neurological status EEG shows diffuse slowing Repeat CT head shows edema, hardin-white changes. Poor prognosis Family aware of the situation. 48 hrs post arrest. cc time 65 min
--- NOTE | 2016-06-03 09:07 | CT ---
PROCEDURE: CT HEAD WITHOUT CONTRAST. HISTORY: coma COMPARISON: Comparison is made to the previous study dated 06/01/2016 TECHNIQUE: Axial computed tomography images were obtained through the head/brain without intravenous contrast. Radiation dose: Total exam DLP = 778.94 mGy-cm. FINDINGS: HEMORRHAGE: No intracranial hemorrhage. BRAIN: There is a diffuse effacement of the brain sulci more prominent at the mid and posterior and lower portion of the brain right more than left. Findings suggestive of increased intracranial pressure. There is also diffuse effacement of the bolanos-white matter differentiation more prominent at the mid and lower portion of the brain. Suspicious for slight [id number] midline shift and mass effect on the right lateral ventricle. VENTRICLES: The right lateral ventricle appears smaller than the left. CALVARIUM: Unremarkable. PARANASAL SINUSES: There are mucosal thickening and air-fluid level seen in the maxillary sinus. Moderate mucosal thickening seen in the sphenoid sinuses. MASTOID AIR CELLS: Partial opacification of the right mastoid is also noted. OTHER FINDINGS: None. IMPRESSION: Diffuse effacement of the brain sulci associated with diffuse low-attenuation of the brain parenchyma more prominent at the mid and lower brain and effacement of the bolanos-white matter differentiation. Findings suggestive of diffuse brain edema and increased intracranial pressure. The possibility of multi territorial ischemia/ infarcts, not totally excluded. Slight right to left midline shift associated with mass effect on the right lateral ventricle which appears smaller than the left. The basilar cistern are small in size. Moderate sinuses mucosal disease. Air-fluid levels seen in the maxillary sinus.
--- NOTE | 2016-06-03 09:50 | CARD ---
APPROVED REPORT EKG Measurement Heart [id number] <Conclusion> Sinus tachycardia Low voltage QRS Nonspecific T wave abnormality Markedly prolonged QTc - new
[2016-06-03] MEDS: levETIRAcetam 500mg IVPB 100 ML IV SCH ×2 (10:23→21:28)
--- NOTE | 2016-06-03 10:59 | CP.PCM.PN ---
<Atul Davis - Last Filed: 06/03/16 10:55> Subjective - Date & Time of Evaluation Date of Evaluation: 06/03/16 Time of Evaluation: 10:55 - Subjective Subjective: Pt seen and examined at bedside. Pt intubated and sedated, with propofol only at this time. No acute events overnight, pt continues to breath over the vent. No body movements appreciated by staff. Objective - Vital Signs/Intake and Output Vital Signs (last 24 hours): Temp Pulse Resp BP Pulse Ox 98.7 F 79 20 119/77 99 06/03/16 06:48 06/03/16 06:49 06/02/16 10:49 06/02/16 07:17 06/01/16 04:34 Intake and Output: 06/03/16 06/03/16 06:59 18:59 Intake Total 1935 Output Total 1000 Balance 935 - Medications Medications: Current Medications Albuterol/Ipratropium (Duoneb 3 Mg/0.5 Mg (3 Ml) Ud) 3 ml IH [id number] [facility] Last Admin: 06/03/16 03:01 Dose: 3 ml Albuterol/Ipratropium (Duoneb 3 Mg/0.5 Mg (3 Ml) Ud) 3 ml IH Q3 PRN PRN Reason: Wheezing Aspirin (Aspirin Chewable) 81 mg NG DAILY [facility] Last Admin: 06/03/16 10:19 Dose: 81 mg Atorvastatin Calcium (Lipitor) 20 mg NG DIN [facility] Last Admin: 06/02/16 17:00 Dose: 20 mg Heparin Sodium (Porcine) (Heparin) 5,000 units SC Q12 [facility]INE PRN Reason: Protocol Last Admin: 06/03/16 10:19 Dose: 5,000 units Norepinephrine Bitartrate 4 mg (/ Sodium Chloride) 254 mls @ 19.05 mls/hr IV .[id number] PRN; Protocol; 5 MCG/MIN PRN Reason: TITRATE PER MD ORDER Last Admin: 06/01/16 03:19 Dose: 19.05 mls/hr Midazolam 100 mg/100ml in NS (Midazolam 100 Mg/100ml In Ns) 100 mls @ 1 mls/hr IV .Q24H PRN; Protocol; 1 MG/HR PRN Reason: Sedation Last Admin: 06/02/16 21:45 Dose: 10 mls/hr Vancomycin HCl (Vancomycin 1gm) 250 mls @ 167 mls/hr IVPB Q12H [facility]INE PRN Reason: Protocol Last Admin: 06/03/16 05:00 Dose: 167 mls/hr Propofol (Diprivan) 100 mls @ 2.33 mls/hr IV .Q24H PRN; Protocol; 5 MCG/KG/MIN PRN Reason: TITRATE PER MD ORDER Last Admin: 06/03/16 01:21 Dose: 13.982 mls/hr Levetiracetam (Keppra 500mg Ivpb) 100 mls @ 400 mls/hr IV Q12 [facility] Last Admin: 06/03/16 10:23 Dose: 400 mls/hr Piperacillin Sod/Tazobactam Sod (Zosyn 3.375 In Ns 100ml) 100 mls @ 200 mls/hr IVPB Q6 [facility]INE PRN Reason: Protocol Stop: 06/07/16 06:29 Last Admin: 06/03/16 06:15 Dose: 200 mls/hr Sodium Chloride (Sodium Chloride 0.9%) 1,000 mls @ 125 mls/hr IV .Q8H [facility] Last Admin: 06/03/16 05:00 Dose: 125 mls/hr Pantoprazole Sodium (Protonix Inj) 40 mg IVP DAILY [facility] Last Admin: 06/03/16 10:20 Dose: 40 mg - Labs Labs: 06/03/16 05:30 06/03/16 05:30 PT 12.1 Seconds (9.9-11.8) H 06/01/16 02:30 INR 1.12 (0.93-1.08) H 06/01/16 02:30 APTT 32.0 Seconds (23.7-30.8) H 06/01/16 02:30 - Constitutional Appears: Toxic, In Acute Distress - Head Exam Head Exam: ATRAUMATIC, NORMAL INSPECTION, NORMOCEPHALIC - Respiratory Exam Respiratory Exam: Clear to Ausculation Bilateral, NORMAL BREATHING PATTERN. absent: Rhonchi, Wheezes Additional comments: ET tube in place. - Cardiovascular Exam Cardiovascular Exam: RRR, +S1, +S2 - GI/Abdominal Exam GI & Abdominal Exam: Soft, Normal Bowel Sounds. absent: Tenderness - Extremities Exam Extremities Exam: Normal Inspection, Pedal Edema (+1 edema b/l). absent: Calf Tenderness - Neurological Exam Neurological Exam: absent: Alert, Awake Additional comments: Intubated. - Skin Skin Exam: Intact, Pallor, Warm Assessment and Plan - Assessment and Plan (Free Text) Plan: 55 y/o female with PMH of COPD, Hx of overdose and suicide attempt presents with cardiac arrest and drug overdose to ICU. Pt remains intubated and sedated, on pressors. Neurology recommends pt continue Keppra for seizure activity and repeat Head CT, findings seen below. ID recommends Vanco and Zosyn for possible infectious issues. Pt will undergo EEG today and have sedation stopped for a short time to evaluate level of consciousness. Pt will remain in the ICU at this time, prognosis is poor. Neuro: Intubated and sedated Repeat head CT shows findings suggestive of diffuse brain edema and increased intracranial pressure. Possibility of multi territorial infarcts cannot be excluded. Slight midline shift and moderate sinuses mucosal disease. Continue Keppra for seizure like activity CV: cardiac arrest Likely cardiogenic shock 2/2 cardiac arrest Pressors stopped Goal MAP > 65 Pulm: Intubated, not sedated ABG has normalized at this time CXR clear Maintain [id number] GI: Protonix for GI prophylaxis Heme: Leukocytosis, improving. No longer on steroids Hg stable Heparin q12 Renal/: JB NS @ 125 Maintain euvolemia Monitor Urine output Continue to monitor electrolytes will replace/replete as needed Endo: Accu q6h Maintain euglycemia ID: Afebrile, no leukocytosis Continue Vanc and Zosyn urine and blood cultures negative at 48 hours. Maintain normothermia Seen, reviewed, and discussed with attending Ryan, PGY-1 <Leticia SEGURA,Abelardo - Last Filed: 06/03/16 14:32> Objective - Vital Signs/Intake and Output Vital Signs (last 24 hours): Temp Pulse Resp BP Pulse Ox 98.7 F 79 20 119/77 99 06/03/16 06:48 06/03/16 06:49 06/02/16 10:49 06/02/16 07:17 06/01/16 04:34 Intake and Output: 06/03/16 06/03/16 06:59 18:59 Intake Total 1935 Output Total 1000 Balance 935 - Medications Medications: Current Medications Albuterol/Ipratropium (Duoneb 3 Mg/0.5 Mg (3 Ml) Ud) 3 ml IH [id number] [facility] Last Admin: 06/03/16 03:01 Dose: 3 ml Albuterol/Ipratropium (Duoneb 3 Mg/0.5 Mg (3 Ml) Ud) 3 ml IH Q3 PRN PRN Reason: Wheezing Aspirin (Aspirin Chewable) 81 mg NG DAILY [facility] Last Admin: 06/03/16 10:19 Dose: 81 mg Atorvastatin Calcium (Lipitor) 20 mg NG DIN [facility] Last Admin: 06/02/16 17:00 Dose: 20 mg Heparin Sodium (Porcine) (Heparin) 5,000 units SC Q12 YASSINE PRN Reason: Protocol Last Admin: 06/03/16 10:19 Dose: 5,000 units Norepinephrine Bitartrate 4 mg (/ Sodium Chloride) 254 mls @ 19.05 mls/hr IV .[id number] PRN; Protocol; 5 MCG/MIN PRN Reason: TITRATE PER MD ORDER Last Admin: 06/01/16 03:19 Dose: 19.05 mls/hr Midazolam 100 mg/100ml in NS (Midazolam 100 Mg/100ml In Ns) 100 mls @ 1 mls/hr IV .Q24H PRN; Protocol; 1 MG/HR PRN Reason: Sedation Last Admin: 06/02/16 21:45 Dose: 10 mls/hr Vancomycin HCl (Vancomycin 1gm) 250 mls @ 167 mls/hr IVPB Q12H [facility] PRN Reason: Protocol Last Admin: 06/03/16 05:00 Dose: 167 mls/hr Propofol (Diprivan) 100 mls @ 2.33 mls/hr IV .Q24H PRN; Protocol; 5 MCG/KG/MIN PRN Reason: TITRATE PER MD ORDER Last Admin: 06/03/16 01:21 Dose: 13.982 mls/hr Levetiracetam (Keppra 500mg Ivpb) 100 mls @ 400 mls/hr IV Q12 [facility] Last Admin: 06/03/16 10:23 Dose: 400 mls/hr Piperacillin Sod/Tazobactam Sod (Zosyn 3.375 In Ns 100ml) 100 mls @ 200 mls/hr IVPB Q6 [facility]INE PRN Reason: Protocol Stop: 06/07/16 06:29 Last Admin: 06/03/16 11:17 Dose: 200 mls/hr Sodium Chloride (Sodium Chloride 0.9%) 1,000 mls @ 125 mls/hr IV .Q8H [facility] Last Admin: 06/03/16 13:34 Dose: 125 mls/hr Pantoprazole Sodium (Protonix Inj) 40 mg IVP DAILY [facility] Last Admin: 06/03/16 10:20 Dose: 40 mg - Labs Labs: 06/03/16 05:30 06/03/16 05:30 PT 12.1 Seconds (9.9-11.8) H 06/01/16 02:30 INR 1.12 (0.93-1.08) H 06/01/16 02:30 APTT 32.0 Seconds (23.7-30.8) H 06/01/16 02:30 Attending/Attestation - Attestation I have personally seen and examined this patient.: Yes I have fully participated in the care of the patient.: Yes I have reviewed all pertinent clinical information, including history, physical exam and plan: Yes Notes (Text): Patient was seen and examined with medical receptionist .Agreed with resident assessment and plan. 55 Yrs old female,SP Cardiac arrest, with anoxic encephlopathy, off pressors today.Patient is on Respiratory support and does not has brain stem functions as per Neurology.Patient is not responsive.Critical care team is following. Prognosis is guarded.
--- NOTE | 2016-06-03 11:03 | PN ---
DATE: 06/03/2016 The patient is lying on the bed, on a ventilator, in no acute distress. PHYSICAL EXAMINATION: VITAL SIGNS: Her blood pressure is 119/71, heart rate is 93 per minute, breathing at a rate of 20 pe r minute, ventilator is also set at 20 per minute and her temperature is 98.7 degrees Fahrenheit. HEENT: Head is normocephalic, atraumatic. NECK: Supple. There are no carotid bruits. LUNGS: Clear. CARDIOVASCULAR: S1, S2 audible. No murmurs. ABDOMEN: Soft, nontender. Bowel sounds are absent. NEUROLOGIC EXAMINATION: MENTAL STATUS: The patient is comatose, does not respond to verbal or noxious painful stimuli. CRANIAL NERVES: Pupils are 3 mm, minimally reactive to light. There is absent doll's eye movement, absent gag reflex. There is no withdrawal of extremities to noxious painful stimuli. Plantars no re sponse. LABORATORIES: Reviewed, shows WBC of 12.6, hemoglobin of 9.1, hematocrit of 29.8 and platelets of 23 8. Her sodium is 148, potassium 3.8, chloride 115, carbon dioxide content 23, BUN of 35, creatinine 1.4 and glucose of 89. She had a repeat CT scan of the head done, which showed diffuse effacement of the brain sulci associa neo with diffuse low attenuation of the brain parenchyma, more prominent at the mid and lower brain a nd effacement of the bolanos/white matter differentiation, findings suggestive of diffuse brain edema an d increased intracranial pressure. The possibility of multi territorial infarcts not totally exclude d. IMPRESSION: 1. Anoxic encephalopathy. 2. Status post myoclonic jerks/seizures. RECOMMENDATIONS: 1. The patient has shown no improvement in neurologic status. 2. The patient has minimal brainstem findings. 3. The patient had an electroencephalogram, which shows no significant brain activity. 4. The patient to be continued on Keppra for possible myoclonic seizure. 5. The patient's prognosis is poor. 6. Please continue supportive care and consider DNR and terminal extubation if family agrees. Thank you for the opportunity to participate in the care of this patient. Shaista Ceja MD cc: [id number] TT: 06/03/2016 11:02:20 Confirmation # [id number] Dictation # [id number] en
--- NOTE | 2016-06-03 11:10 | EEG ---
DATE: 06/03/2016 INTRODUCTION: This is a digitally recorded EEG monitoring using standard EEG montages. BACKGROUND RHYTHM: The EEG shows a background activity, which is less than 1 Hz. No significant EEG activity was seen throughout this EEG recording. Ventilator artifact is present throughout this EEG recording. ABNORMAL POTENTIALS: No spikes, sharp waves or focal slowing was seen. PHOTIC STIMULATION AND HYPERVENTILATION: Were not performed. IMPRESSION: Abnormal electroencephalogram. No cerebral electrical activity is seen in this EEG rosio rding. Ventilator artifact is noted in this electroencephalogram recording. Clinical correlation is suggested. Shaista Ceja MD cc: [id number] TT: 06/03/2016 11:09:46 Confirmation # [id number] Dictation # [id number] en
--- NOTE | 2016-06-03 12:50 | PN ---
DATE: 06/03/2016 The patient is off Levophed and off sedation. She is unresponsive. PHYSICAL EXAMINATION: VITAL SIGNS: Blood pressure 119/77, heart rate 92, temperature 98.9. HEENT: Pale conjunctivae. CHEST: Bilateral rhonchi. HEART: S1, S2 regular. LABORATORIES: SMA-7: Sodium 148, potassium 3.8, chloride 115, CO2 23, glucose 89, BUN 35, creatinin e 1.4. Hemoglobin and hematocrit 9.1 and 29.8, white count and platelet count are 12.6 and 238,000. The repeat head CT scan done today revealed diffuse effacement of the brain sulci associated with dif fuse low attenuation of the brain parenchyma, more proximal at the mid and lower brain and effacement of the right bolanos/white matter differentiation. Findings suggestive of diffuse brain edema and incr eased intracranial pressure. The possibility of multi territorial ischemic infarct not totally exclu ded. Slight right to left midline shift associated with mass effect on the right lateral ventricle. ASSESSMENT: 1. Status post cardiac arrest. 2. Consider anoxic encephalopathy. 3. Cocaine and opiate abuse. 4. History of depression. 5. Anemia. 6. Improved renal insufficiency. 7. Elevated troponin may represent also cerebellar infarct. 8. Consider ischemic cardiomyopathy. RECOMMENDATIONS: Continue aspirin 81 mg once a day, subcutaneous heparin 5000 units q. 12 hours, Lip itor at 20 mg once a day via nasogastric tube. Continue IV vancomycin and IV Zosyn. The patient is not a candidate for invasive cardiac workup. Elvin Dillon MD cc: [id number] TT: 06/03/2016 12:49:54 Confirmation # [id number] Dictation # [id number] en
--- NOTE | 2016-06-03 15:21 | RAD ---
HISTORY: ETT COMPARISON: 06/02/2016 FINDINGS: LUNGS: No active pulmonary disease. PLEURA: No significant pleural effusion identified, no pneumothorax apparent. CARDIOVASCULAR: ETT and NG tube unchanged in position, grossly. OSSEOUS STRUCTURES: No significant abnormalities. VISUALIZED UPPER ABDOMEN: Normal. OTHER FINDINGS: None. IMPRESSION: No active disease.
--- NOTE | 2016-06-03 16:46 | CP.PCM.PN ---
Subjective - Date & Time of Evaluation Date of Evaluation: 06/03/16 Time of Evaluation: 15:00 - Subjective Subjective: Infectious Disease Follow Up: June 03, 2016 55 yo female with multiple medical problems including rheumatoid arthritis and rheumatoid lung disease, hypertension, end stage COPD, multiple UTIs, and endometriosis. The patient also has an extensive history of substance abuse to the point where she attempted to sniff a powdered substance when she was in the [facility] ICU in March 2016. The patient had cardiac arrest at home. She was down for 10 minutes when EMS arrived and had CPR for 37 minutes. Patient was found in asystole by EMS and gave 4 rounds of epinephrine until pulse returned which was V. fib. EMS shocked patient. As per family, empty bottles of tamezepam and cough medicine with codeine. Patient is currently intubated and ventilated. Extremely poor prognosis. No real improvement in the patient's mentation. [facility] came to evaluated the patient yesterday. Downtrending leukocytosis. All test findings strongly suggesting anoxic encephalopathy. Prognosis is dismal. Objective - Vital Signs/Intake and Output Vital Signs (last 24 hours): Temp Pulse Resp BP Pulse Ox 98.7 F 79 20 119/77 99 06/03/16 06:48 06/03/16 06:49 06/02/16 10:49 06/02/16 07:17 06/01/16 04:34 Intake and Output: 06/03/16 06/03/16 06:59 18:59 Intake Total 1935 Output Total 1000 Balance 935 - Medications Medications: Current Medications Albuterol/Ipratropium (Duoneb 3 Mg/0.5 Mg (3 Ml) Ud) 3 ml IH [id number] [facility] Last Admin: 06/03/16 03:01 Dose: 3 ml Albuterol/Ipratropium (Duoneb 3 Mg/0.5 Mg (3 Ml) Ud) 3 ml IH Q3 PRN PRN Reason: Wheezing Aspirin (Aspirin Chewable) 81 mg NG DAILY [facility] Last Admin: 06/03/16 10:19 Dose: 81 mg Atorvastatin Calcium (Lipitor) 20 mg NG DIN [facility] Last Admin: 06/02/16 17:00 Dose: 20 mg Heparin Sodium (Porcine) (Heparin) 5,000 units SC Q12 YASSINE PRN Reason: Protocol Last Admin: 06/03/16 10:19 Dose: 5,000 units Norepinephrine Bitartrate 4 mg (/ Sodium Chloride) 254 mls @ 19.05 mls/hr IV .[id number] PRN; Protocol; 5 MCG/MIN PRN Reason: TITRATE PER MD ORDER Last Admin: 06/01/16 03:19 Dose: 19.05 mls/hr Midazolam 100 mg/100ml in NS (Midazolam 100 Mg/100ml In Ns) 100 mls @ 1 mls/hr IV .Q24H PRN; Protocol; 1 MG/HR PRN Reason: Sedation Last Admin: 06/02/16 21:45 Dose: 10 mls/hr Vancomycin HCl (Vancomycin 1gm) 250 mls @ 167 mls/hr IVPB Q12H [facility]ASSINE PRN Reason: Protocol Last Admin: 06/03/16 05:00 Dose: 167 mls/hr Propofol (Diprivan) 100 mls @ 2.33 mls/hr IV .Q24H PRN; Protocol; 5 MCG/KG/MIN PRN Reason: TITRATE PER MD ORDER Last Admin: 06/03/16 01:21 Dose: 13.982 mls/hr Levetiracetam (Keppra 500mg Ivpb) 100 mls @ 400 mls/hr IV Q12 [facility]INE Last Admin: 06/03/16 10:23 Dose: 400 mls/hr Piperacillin Sod/Tazobactam Sod (Zosyn 3.375 In Ns 100ml) 100 mls @ 200 mls/hr IVPB Q6 YASSINE PRN Reason: Protocol Stop: 06/07/16 06:29 Last Admin: 06/03/16 11:17 Dose: 200 mls/hr Sodium Chloride (Sodium Chloride 0.9%) 1,000 mls @ 125 mls/hr IV .Q8H [facility] Last Admin: 06/03/16 13:34 Dose: 125 mls/hr Pantoprazole Sodium (Protonix Inj) 40 mg IVP DAILY [facility] Last Admin: 06/03/16 10:20 Dose: 40 mg - Labs Labs: 06/03/16 05:30 06/03/16 05:30 PT 12.1 Seconds (9.9-11.8) H 06/01/16 02:30 INR 1.12 (0.93-1.08) H 06/01/16 02:30 APTT 32.0 Seconds (23.7-30.8) H 06/01/16 02:30 - Constitutional Appears: Non-toxic, No Acute Distress, Chronically Ill - Head Exam Additional comments: intubated and ventilated. - Eye Exam Additional comments: pinpoint pupils and very sluggish reactions. - ENT Exam ENT Exam: Mucous Membranes Moist, Normal External Ear Exam, TM's Normal Bilaterally Additional comments: intubated and ventilated. - Neck Exam Neck Exam: Full ROM, Normal Inspection - Respiratory Exam Respiratory Exam: Clear to Ausculation Bilateral, NORMAL BREATHING PATTERN. absent: Rales, Rhonchi, Wheezes - Cardiovascular Exam Cardiovascular Exam: REGULAR RHYTHM, RRR, +S1, +S2 - GI/Abdominal Exam GI & Abdominal Exam: Soft, Normal Bowel Sounds. absent: Distended, Tenderness - Extremities Exam Extremities Exam: Normal Inspection - Neurological Exam Additional comments: intubated and ventilated. non-responsive so far. Assessment and Plan - Assessment and Plan (Free Text) Assessment: 55 yo female found unresponsive at home and down for at least 47 minutes pulseless. The patient had a cardiac arrest. The patient is currently intubated and ventilated. Very poorly responsive. Pupils pinpoint and sluggish. The patient has leukocytosis up to 22. Started on antibiotics of Vancomycin currently. Very poor prognosis at this point. Leukocytosis can be due to the cardiac arrest, anoxia, or infection. Multiple medical issues. Supportive care. Cardiac Shock more likely than Septic Shock. Overdose on Codeine and Benzodiazepene. Cocaine Use (still active user). Acute kidney injury likely secondary to hypoperfusion. Extremely poor prognosis for this patient at this time. Will continue with Vancomycin and Zosyn for treatment if there is an infectious issue. Leukocytosis improved to 12.6 today. Dismal prognosis. [facility] came to evaluate the patient yesterday. The patient with no change in mental function. Likely severe anoxic encephalopathy. Patient appears to meeting most of the criteria for brain . Thank you for allowing me to participate in the care of the patient, we will follow with you.
[2016-06-04] MEDS: Albuterol-Ipratrop 3 mg / 0.5 (3 ml) UD IH SCH ×3 (01:30→13:22)
[2016-06-04] MEDS: Vancomycin 1gm in NS 250ml 250 ML IVPB SCH ×2 (06:00→16:45)
[2016-06-04 06:09] LABS: ARTERIAL BLOOD GAS HCO3 17.4 mmol/L (21-28); ARTERIAL BLOOD GAS O2 CAPACITY 12.7 mL/dl (16-24); ARTERIAL BLOOD GAS O2 CONTENT 12.6 ML/dl (15-23); ARTERIAL BLOOD GAS PH 7.27 (7.35-7.45); ARTERIAL BLOOD HGB O2 SAT 96.7 % (95.0-98.0); CARBOXYHEMOGLOBIN 1.6 % (0.5-1.5); HHB 0.6 % (0-5); METHEMOGLOBIN 1.1 % (0.0-3.0)
[2016-06-04] MEDS: Sodium Chloride 0.9% 1,000 ML IV SCH ×4 (06:44→23:45)
[2016-06-04 06:46] LABS: ADD MANUAL DIFF? NO
[2016-06-04] MEDS: Piperacillin/Tazobact 3.375 gm 100 ML IVPB SCH ×4 (06:46→18:50)
[2016-06-04 06:59] LABS: BASO # 0.02 K/mm3 (0.0-2.0); BASO % 0.1 % (0.0-3.0); EOS # 0.1 (0.0-0.7); EOS % 0.7 % (1.5-5.0); GRAN # 11.13 (1.4-6.5); GRAN % 79.8 % (50.0-68.0); HEMATOCRIT 31.7 % (36.0-48.0); LYMPH # 1.7 (1.2-3.4); LYMPH % 12.2 % (22.0-35.0); MEAN CELL VOLUME 96.1 fL (80.0-105.0); MEAN CORPUSCULAR HEMOGLOBIN 28.8 pg (25.0-35.0); MEAN PLATELET VOLUME 9.5 fl (7.0-11.0); MONO % 7.2 % (1.0-6.0); PLATELET COUNT 248 10^3/uL (120.0-450.0); RED CELL DISTRIBUTION WIDTH 16.2 % (11.5-14.5)
[2016-06-04 07:30] LABS: BILIRUBIN,TOTAL 0.4 mg/dL (0.2-1.3); CALCIUM 7.9 mg/dL (8.4-10.5); MAGNESIUM 1.8 mg/dL (1.7-2.2); PHOSPHOROUS 2.3 mg/dL (2.5-4.5); POTASSIUM 3.7 mmol/L (3.6-5.0); TOTAL PROTEIN 5.6 g/dL (5.8-8.3)
[2016-06-04 07:48] LABS: TROPONIN I 0.25 ng/mL
[2016-06-04] MEDS: levETIRAcetam 500mg IVPB 100 ML IV SCH ×2 (09:23→21:27)
--- NOTE | 2016-06-04 11:29 | RAD ---
HISTORY: ETT COMPARISON: Comparison is made to the previous study dated 06/03/2016 FINDINGS: LUNGS: Haziness at the right upper lung could be due to partial atelectasis of the right upper lobe. Otherwise no significant interval change. The ET tube is seen at appropriate position. PLEURA: No significant pleural effusion identified, no pneumothorax apparent. CARDIOVASCULAR: Normal. OSSEOUS STRUCTURES: No significant abnormalities. VISUALIZED UPPER ABDOMEN: Normal. OTHER FINDINGS: None. IMPRESSION: New haziness at the right upper chest suspicious for possible partial atelectasis of the right upper lobe. Appropriate position of the support devices.
--- NOTE | 2016-06-04 11:39 | PN ---
DATE: 06/04/2016 NEUROLOGY PROGRESS NOTE The patient is lying on the bed on a ventilator. PHYSICAL EXAMINATION: VITAL SIGNS: Her blood pressure is 155/92. Heart rate is 120 per minute. She is breathing at a rat e of 26 per minute, and her temperature is 98.7 degrees Fahrenheit. HEENT: Head is normocephalic, atraumatic. NECK: Supple. There are no carotid bruits. LUNGS: Clear. CARDIOVASCULAR: S1, S2 audible. No murmurs. S1 and S2 audible with no murmurs. ABDOMEN: Soft and nontender. Bowel sounds are absent. NEUROLOGIC EXAMINATION: MENTAL STATUS: The patient is comatose, does not respond to verbal or noxious painful stimuli. CRANIAL NERVES: Pupils are 4 mm bilaterally, reactive to light. There is absent doll's eye movement . Absent corneal reflex. There is no gag reflex. MOTOR: Tone is decreased in all 4 extremities. There is no withdrawal of extremities to noxious rigo nful stimuli. Plantars no response. LABORATORY DATA: Reviewed. WBC 14.0, hemoglobin 9.5, hematocrit 31.7, and platelets of 248. Sodium is 148, potassium 3.7, chloride 118, carbon dioxide content 20. BUN of 31, and creatinine 1.2. IMPRESSION: 1. Anoxic encephalopathy status post cardiac arrest. 2. Respiratory failure. RECOMMENDATIONS: 1. The patient has showed no improvement in neurologic status. 2. The patient has minimal brainstem reflex intact. 3. I have spoken with the patient's family about the prognosis, which is poor. 4. The patient's family decided to withdraw support in a couple of days, awaiting for family members . 5. Please continue supportive care and other treatment. Thank you for the opportunity to participate in the care of this patient. Shaista Ceja MD cc: [id number] TT: 06/04/2016 11:38:39 Confirmation # [id number] Dictation # [id number] [id number]
--- NOTE | 2016-06-04 12:53 | CP.PCM.PN ---
<Atul Davis - Last Filed: 06/04/16 12:49> Subjective - Date & Time of Evaluation Date of Evaluation: 06/04/16 Time of Evaluation: 12:49 - Subjective Subjective: Pt seen and examined at bedside. Pt is intubated, no sedation at this time. No change in mental status at this time. Pt is not on any pressors at this time. Not responsive to painful stimuli. No acute events overnight. Objective - Vital Signs/Intake and Output Vital Signs (last 24 hours): Temp Pulse Resp BP Pulse Ox 98.7 F 118 H 20 119/77 99 06/03/16 06:48 06/04/16 08:00 06/02/16 10:49 06/02/16 07:17 06/01/16 04:34 Intake and Output: 06/04/16 06/04/16 06:59 18:59 Intake Total 1925 Output Total 200 Balance 1725 - Medications Medications: Current Medications Albuterol/Ipratropium (Duoneb 3 Mg/0.5 Mg (3 Ml) Ud) 3 ml IH [id number] [facility] Last Admin: 06/04/16 07:29 Dose: 3 ml Albuterol/Ipratropium (Duoneb 3 Mg/0.5 Mg (3 Ml) Ud) 3 ml IH Q3 PRN PRN Reason: Wheezing Aspirin (Aspirin Chewable) 81 mg NG DAILY [facility] Last Admin: 06/04/16 09:23 Dose: 81 mg Atorvastatin Calcium (Lipitor) 20 mg NG DIN [facility] Last Admin: 06/03/16 19:00 Dose: 20 mg Heparin Sodium (Porcine) (Heparin) 5,000 units SC Q12 [facility] PRN Reason: Protocol Last Admin: 06/04/16 09:23 Dose: 5,000 units Norepinephrine Bitartrate 4 mg (/ Sodium Chloride) 254 mls @ 19.05 mls/hr IV .[id number] PRN; Protocol; 5 MCG/MIN PRN Reason: TITRATE PER MD ORDER Last Admin: 06/01/16 03:19 Dose: 19.05 mls/hr Midazolam 100 mg/100ml in NS (Midazolam 100 Mg/100ml In Ns) 100 mls @ 1 mls/hr IV .Q24H PRN; Protocol; 1 MG/HR PRN Reason: Sedation Last Admin: 06/02/16 21:45 Dose: 10 mls/hr Vancomycin HCl (Vancomycin 1gm) 250 mls @ 167 mls/hr IVPB Q12H [facility] PRN Reason: Protocol Last Admin: 06/04/16 06:00 Dose: 167 mls/hr Propofol (Diprivan) 100 mls @ 2.33 mls/hr IV .Q24H PRN; Protocol; 5 MCG/KG/MIN PRN Reason: TITRATE PER MD ORDER Last Admin: 06/03/16 01:21 Dose: 13.982 mls/hr Levetiracetam (Keppra 500mg Ivpb) 100 mls @ 400 mls/hr IV Q12 [facility] Last Admin: 06/04/16 09:23 Dose: 400 mls/hr Piperacillin Sod/Tazobactam Sod (Zosyn 3.375 In Ns 100ml) 100 mls @ 200 mls/hr IVPB Q6 [facility] PRN Reason: Protocol Stop: 06/07/16 06:29 Last Admin: 06/04/16 06:46 Dose: 200 mls/hr Sodium Chloride (Sodium Chloride 0.9%) 1,000 mls @ 125 mls/hr IV .Q8H [facility] Last Admin: 06/04/16 06:44 Dose: 125 mls/hr Pantoprazole Sodium (Protonix Inj) 40 mg IVP DAILY [facility] Last Admin: 06/04/16 09:23 Dose: 40 mg - Labs Labs: 06/04/16 06:15 06/04/16 06:15 PT 12.1 Seconds (9.9-11.8) H 06/01/16 02:30 INR 1.12 (0.93-1.08) H 06/01/16 02:30 APTT 32.0 Seconds (23.7-30.8) H 06/01/16 02:30 - Constitutional Appears: Toxic, In Acute Distress - Head Exam Head Exam: ATRAUMATIC, NORMAL INSPECTION, NORMOCEPHALIC - Eye Exam Additional comments: Pupils pinpoint, sluggish. - ENT Exam Additional comments: ET tube in place. - Respiratory Exam Respiratory Exam: Clear to Ausculation Bilateral, NORMAL BREATHING PATTERN. absent: Rhonchi, Wheezes - Cardiovascular Exam Cardiovascular Exam: RRR, +S1, +S2 - GI/Abdominal Exam GI & Abdominal Exam: Soft, Normal Bowel Sounds. absent: Tenderness - Extremities Exam Extremities Exam: Pedal Edema. absent: Calf Tenderness - Neurological Exam Neurological Exam: absent: Alert, Awake - Skin Skin Exam: Intact, Pallor, Warm Assessment and Plan - Assessment and Plan (Free Text) Plan: 55 y/o female with PMH of COPD, Hx of overdose and suicide attempt presents with cardiac arrest and drug overdose to ICU. Pt remains intubated and sedated, on pressors. Neurology recommends pt continue Keppra for seizure activity and repeat Head CT, findings seen below. ID recommends Vanco and Zosyn for empiric coverage for possible infection. EEG is abnormal, showing minimal brain activity. As per neuro, pt's family will extubate once entire family is in town. Pt will remain in the ICU at this time, prognosis is poor. Neuro: Intubated, no sedation Repeat head CT (06/03) shows findings suggestive of diffuse brain edema and increased intracranial pressure. Possibility of multi territorial infarcts cannot be excluded. Slight midline shift and moderate sinuses mucosal disease. Continue Keppra for seizure like activity CV: Cardiac arrest Likely cardiogenic shock 2/2 cardiac arrest Goal MAP > 65 Pulm: Intubated, not sedated ABG show metabolic acidosis today, will consider changing vent settings. Maintain [id number] GI: Protonix for GI prophylaxis Hep panel negative Heme: Leukocytosis Hg stable Heparin q12 Renal/: JB, resolved. NS @ 125 Maintain euvolemia Monitor Urine output Continue to monitor electrolytes will replace/replete as needed Endo: Accu q6h Maintain euglycemia ID: Afebrile, leukocytosis Continue Vanc and Zosyn for empiric treatment Urine and blood cultures negative Maintain normothermia Seen, reviewed, and discussed with attending Ryan, PGY-1 <Leticia SEGURA,Abelardo - Last Filed: 06/04/16 14:19> Objective - Vital Signs/Intake and Output Vital Signs (last 24 hours): Temp Pulse Resp BP Pulse Ox 98.7 F 118 H 20 119/77 99 06/03/16 06:48 06/04/16 08:00 06/02/16 10:49 06/02/16 07:17 06/01/16 04:34 Intake and Output: 06/04/16 06/04/16 06:59 18:59 Intake Total 1925 Output Total 200 Balance 1725 - Medications Medications: Current Medications Albuterol/Ipratropium (Duoneb 3 Mg/0.5 Mg (3 Ml) Ud) 3 ml IH [id number] [facility] Last Admin: 06/04/16 13:22 Dose: 3 ml Albuterol/Ipratropium (Duoneb 3 Mg/0.5 Mg (3 Ml) Ud) 3 ml IH Q3 PRN PRN Reason: Wheezing Aspirin (Aspirin Chewable) 81 mg NG DAILY [facility] Last Admin: 06/04/16 09:23 Dose: 81 mg Atorvastatin Calcium (Lipitor) 20 mg NG DIN [facility] Last Admin: 06/03/16 19:00 Dose: 20 mg Heparin Sodium (Porcine) (Heparin) 5,000 units SC Q12 [facility] PRN Reason: Protocol Last Admin: 06/04/16 09:23 Dose: 5,000 units Norepinephrine Bitartrate 4 mg (/ Sodium Chloride) 254 mls @ 19.05 mls/hr IV .[id number] PRN; Protocol; 5 MCG/MIN PRN Reason: TITRATE PER MD ORDER Last Admin: 06/01/16 03:19 Dose: 19.05 mls/hr Midazolam 100 mg/100ml in NS (Midazolam 100 Mg/100ml In Ns) 100 mls @ 1 mls/hr IV .Q24H PRN; Protocol; 1 MG/HR PRN Reason: Sedation Last Admin: 06/02/16 21:45 Dose: 10 mls/hr Vancomycin HCl (Vancomycin 1gm) 250 mls @ 167 mls/hr IVPB Q12H [facility] PRN Reason: Protocol Last Admin: 06/04/16 06:00 Dose: 167 mls/hr Propofol (Diprivan) 100 mls @ 2.33 mls/hr IV .Q24H PRN; Protocol; 5 MCG/KG/MIN PRN Reason: TITRATE PER MD ORDER Last Admin: 06/03/16 01:21 Dose: 13.982 mls/hr Levetiracetam (Keppra 500mg Ivpb) 100 mls @ 400 mls/hr IV Q12 [facility] Last Admin: 06/04/16 09:23 Dose: 400 mls/hr Piperacillin Sod/Tazobactam Sod (Zosyn 3.375 In Ns 100ml) 100 mls @ 200 mls/hr IVPB Q6 [facility] PRN Reason: Protocol Stop: 06/07/16 06:29 Last Admin: 06/04/16 06:46 Dose: 200 mls/hr Sodium Chloride (Sodium Chloride 0.9%) 1,000 mls @ 125 mls/hr IV .Q8H [facility] Last Admin: 06/04/16 06:44 Dose: 125 mls/hr Pantoprazole Sodium (Protonix Inj) 40 mg IVP DAILY [facility] Last Admin: 06/04/16 09:23 Dose: 40 mg - Labs Labs: 06/04/16 06:15 06/04/16 06:15 PT 12.1 Seconds (9.9-11.8) H 06/01/16 02:30 INR 1.12 (0.93-1.08) H 06/01/16 02:30 APTT 32.0 Seconds (23.7-30.8) H 06/01/16 02:30 Attending/Attestation - Attestation I have personally seen and examined this patient.: Yes I have fully participated in the care of the patient.: Yes I have reviewed all pertinent clinical information, including history, physical exam and plan: Yes Notes (Text): Patient was seen and examined with medical management trainer .Agreed with resident assessment and plan. 55 Yrs old female SP cardiac arrest, Respiratory failure requiring ventilatory support , with anoxic enephopathy, no improvement in mental statuus.off pressor , no seizure activity. Critical care and Neurology is following. Prognosis is guarded
--- NOTE | 2016-06-04 13:34 | PN ---
DATE: 06/04/2016 The patient seen and examined at bedside. She is not responding to painful stimuli. The patient appears to be comfortable. She is on PRVC, 440/20/5/40% on that setting. PHYSICAL EXAMINATION: VITAL SIGNS: Blood pressure 158/92, heart rate 122, oxygen saturation 99%, end- tidal CO2 on the monitor 25%. HEAD AND NECK: Atraumatic. LUNGS: Clear to auscultation bilaterally. HEART: Regular rate and rhythm. S1, S2 normal. ABDOMEN: Soft, nontender, nondistended. MUSCULOSKELETAL: Trace bilateral pedal and ankle edema. NEUROLOGIC: The patient moves all extremities spontaneously. SKIN: Moist. PSYCHIATRIC: The patient nonresponsive to painful stimuli. LABORATORY DATA: WBC 14, hemoglobin 9.5, platelet count 248. Sodium 148, potassium 3.7, chloride 118, carbon dioxide 20, BUN 31. Creatinine 1.2, down from 1.4. Troponin 0.25, down from 3.72. MEDICATION: DuoNeb every 6, aspirin, DuoNeb p.r.n., heparin subQ, Keppra, Lipitor, propofol, Protonix, normal saline 125 mL per hour, vancomycin, Zosyn, Versed. ASSESSMENT AND PLAN: This is a 55-year-old lady who presented with cardiac arrest secondary to cocaine abuse/overdose and complicated by severe anoxic brain injury. At present time, patient is on ventilatory support/pressure regulated volume control. We will continue with protective lung ventilation strategy, head of bed elevated at more than 35 degrees. As patient is hemodynamically stable, we will continue with conservative fluid management to maintain euvolemia. Gastrointestinal prophylaxis. VAP bundle. Cardiovascular izaguirre, patient is hemodynamically stable; however, a little bit tachycardic, which may be related to her underlying diagnosis. Gastrointestinal izaguirre, patient is n.p.o. and on gastrointestinal prophylaxis. Renal izaguirre, patient's acute kidney injury is substantially improved. Endocrine izaguirre, we will maintain blood glucose within 140-180 area. We will continue to target euvolemia, euglycemia, normothermia and oxygen saturation more than 90%. As per family, they would desire to proceed with terminal extubation on when all family has a chance to get together at her bedside. ccm time 40 min Valerio Peralta MD cc: [id number] TT: 06/04/2016 13:33:30 Confirmation # [id number] Dictation # [id number] sn MTDD
--- NOTE | 2016-06-04 18:03 | CP.PCM.PN ---
Subjective - Date & Time of Evaluation Date of Evaluation: 06/04/16 Time of Evaluation: 17:00 - Subjective Subjective: Infectious Disease Follow Up: June 04, 2016 55 yo female with multiple medical problems including rheumatoid arthritis and rheumatoid lung disease, hypertension, end stage COPD, multiple UTIs, and endometriosis. The patient also has an extensive history of substance abuse to the point where she attempted to sniff a powdered substance when she was in the [facility] ICU in March 2016. The patient had cardiac arrest at home. She was down for 10 minutes when EMS arrived and had CPR for 37 minutes. Patient was found in asystole by EMS and gave 4 rounds of epinephrine until pulse returned which was V. fib. EMS shocked patient. As per family, empty bottles of tamezepam and cough medicine with codeine. Patient is currently intubated and ventilated. Extremely poor prognosis. No real improvement in the patient's mentation. [facility] came to evaluated the patient yesterday. Downtrending leukocytosis. All test findings strongly suggesting anoxic encephalopathy. Prognosis is dismal. She is hemodynamically stable. Objective - Vital Signs/Intake and Output Vital Signs (last 24 hours): Temp Pulse Resp BP Pulse Ox 98.7 F 126 H 120 H 119/77 99 06/03/16 06:48 06/04/16 13:00 06/04/16 11:20 06/02/16 07:17 06/04/16 11:20 Intake and Output: 06/04/16 06/04/16 06:59 18:59 Intake Total 1925 Output Total 200 Balance 1725 - Medications Medications: Current Medications Albuterol/Ipratropium (Duoneb 3 Mg/0.5 Mg (3 Ml) Ud) 3 ml IH [id number] [facility] Last Admin: 06/04/16 13:22 Dose: 3 ml Albuterol/Ipratropium (Duoneb 3 Mg/0.5 Mg (3 Ml) Ud) 3 ml IH Q3 PRN PRN Reason: Wheezing Aspirin (Aspirin Chewable) 81 mg NG DAILY [facility] Last Admin: 06/04/16 09:23 Dose: 81 mg Atorvastatin Calcium (Lipitor) 20 mg NG DIN [facility] Last Admin: 06/04/16 16:37 Dose: 20 mg Heparin Sodium (Porcine) (Heparin) 5,000 units SC Q12 [facility] PRN Reason: Protocol Last Admin: 06/04/16 09:23 Dose: 5,000 units Norepinephrine Bitartrate 4 mg (/ Sodium Chloride) 254 mls @ 19.05 mls/hr IV .[id number] PRN; Protocol; 5 MCG/MIN PRN Reason: TITRATE PER MD ORDER Last Admin: 06/01/16 03:19 Dose: 19.05 mls/hr Midazolam 100 mg/100ml in NS (Midazolam 100 Mg/100ml In Ns) 100 mls @ 1 mls/hr IV .Q24H PRN; Protocol; 1 MG/HR PRN Reason: Sedation Last Admin: 06/02/16 21:45 Dose: 10 mls/hr Vancomycin HCl (Vancomycin 1gm) 250 mls @ 167 mls/hr IVPB Q12H [facility] PRN Reason: Protocol Last Admin: 06/04/16 16:45 Dose: 167 mls/hr Propofol (Diprivan) 100 mls @ 2.33 mls/hr IV .Q24H PRN; Protocol; 5 MCG/KG/MIN PRN Reason: TITRATE PER MD ORDER Last Admin: 06/03/16 01:21 Dose: 13.982 mls/hr Levetiracetam (Keppra 500mg Ivpb) 100 mls @ 400 mls/hr IV Q12 [facility] Last Admin: 06/04/16 09:23 Dose: 400 mls/hr Piperacillin Sod/Tazobactam Sod (Zosyn 3.375 In Ns 100ml) 100 mls @ 200 mls/hr IVPB Q6 [facility] PRN Reason: Protocol Stop: 06/07/16 06:29 Last Admin: 06/04/16 11:30 Dose: 200 mls/hr Sodium Chloride (Sodium Chloride 0.9%) 1,000 mls @ 125 mls/hr IV .Q8H [facility] Last Admin: 06/04/16 15:00 Dose: 125 mls/hr Pantoprazole Sodium (Protonix Inj) 40 mg IVP DAILY [facility] Last Admin: 06/04/16 09:23 Dose: 40 mg - Labs Labs: 06/04/16 06:15 06/04/16 06:15 PT 12.1 Seconds (9.9-11.8) H 06/01/16 02:30 INR 1.12 (0.93-1.08) H 06/01/16 02:30 APTT 32.0 Seconds (23.7-30.8) H 06/01/16 02:30 - Constitutional Appears: Non-toxic, No Acute Distress, Chronically Ill - Head Exam Additional comments: intubated and ventilated. - Eye Exam Additional comments: pinpoint pupils and very sluggish reactions. - ENT Exam ENT Exam: Mucous Membranes Moist, Normal External Ear Exam, TM's Normal Bilaterally Additional comments: intubated and ventilated. - Neck Exam Neck Exam: Full ROM, Normal Inspection - Respiratory Exam Respiratory Exam: Clear to Ausculation Bilateral, NORMAL BREATHING PATTERN. absent: Rales, Rhonchi, Wheezes - Cardiovascular Exam Cardiovascular Exam: REGULAR RHYTHM, RRR, +S1, +S2 - GI/Abdominal Exam GI & Abdominal Exam: Soft, Normal Bowel Sounds. absent: Distended, Tenderness - Extremities Exam Extremities Exam: Normal Inspection - Neurological Exam Additional comments: intubated and ventilated. non-responsive so far. Assessment and Plan - Assessment and Plan (Free Text) Assessment: 55 yo female found unresponsive at home and down for at least 47 minutes pulseless. The patient had a cardiac arrest. The patient is currently intubated and ventilated. Very poorly responsive. Pupils pinpoint and sluggish. The patient has leukocytosis up to 22. Started on antibiotics of Vancomycin currently. Very poor prognosis at this point. Leukocytosis can be due to the cardiac arrest, anoxia, or infection. Multiple medical issues. Supportive care. Cardiac Shock more likely than Septic Shock. Overdose on Codeine and Benzodiazepene. Cocaine Use (still active user). Acute kidney injury likely secondary to hypoperfusion. Extremely poor prognosis for this patient at this time. Will continue with Vancomycin and Zosyn for treatment if there is an infectious issue. Leukocytosis improved to 14.0 today. Dismal prognosis. [facility] came to evaluate the patient yesterday. The patient with no change in mental function. Likely severe anoxic encephalopathy. Patient appears to meeting most of the criteria for brain . Dismal prognosis. Thank you for allowing me to participate in the care of the patient, we will follow with you.
[2016-06-05] MEDS: Albuterol-Ipratrop 3 mg / 0.5 (3 ml) UD IH SCH ×4 (02:00→19:45)
[2016-06-05] MEDS: Vancomycin 1gm in NS 250ml 250 ML IVPB SCH ×2 (05:32→18:02)
[2016-06-05 05:33] LABS: ARTERIAL BLOOD GAS HCO3 16.7 mmol/L (21-28); ARTERIAL BLOOD GAS O2 CAPACITY 14.8 mL/dl (16-24); ARTERIAL BLOOD GAS O2 CONTENT 14.5 ML/dl (15-23); ARTERIAL BLOOD GAS PH 7.34 (7.35-7.45); ARTERIAL BLOOD HGB O2 SAT 94.7 % (95.0-98.0); CARBOXYHEMOGLOBIN 2.1 % (0.5-1.5); HHB 2.1 % (0-5); METHEMOGLOBIN 1.1 % (0.0-3.0)
[2016-06-05] MEDS: Piperacillin/Tazobact 3.375 gm 100 ML IVPB SCH ×5 (05:33→23:57)
[2016-06-05 06:00] LABS: HEMATOCRIT 31.4 % (36.0-48.0); MEAN CELL VOLUME 93.7 fL (80.0-105.0); MEAN CORPUSCULAR HEMOGLOBIN 29.3 pg (25.0-35.0); MEAN CORPUSCULAR HGB CONC 31.2 g/dl (31.0-37.0); MEAN PLATELET VOLUME 9.3 fl (7.0-11.0); PLATELET COUNT 232 10^3/uL (120.0-450.0); WHITE BLOOD COUNT 14.4 10^3/ul (4.5-11.0)
[2016-06-05 06:21] LABS: ADD MANUAL DIFF? YES
[2016-06-05 06:22] LABS: BILIRUBIN,TOTAL 0.5 mg/dL (0.2-1.3); CALCIUM 7.9 mg/dL (8.4-10.5); POTASSIUM 3.4 mmol/L (3.6-5.0); TOTAL PROTEIN 5.3 g/dL (5.8-8.3)
[2016-06-05 07:09] LABS: BAND 1 % (0-2); MYELOCYTE 1 %; NEUTROPHIL 82 % (50.0-70.0)
[2016-06-05 07:10] LABS: PLATELET ESTIMATE NORMAL (NORMAL)
--- NOTE | 2016-06-05 10:28 | PN ---
DATE: 06/05/2016 The patient is lying on the bed, on a ventilator. PHYSICAL EXAMINATION: VITAL SIGNS: Her blood pressure is 154/90, heart rate is 116 per minute, breathing at a rate of 30 p er minute, ventilator is set at 20 per minute and her temperature is 98.9 degrees Fahrenheit. HEENT: Head is normocephalic, atraumatic. NECK: Supple. There are no carotid bruits. LUNGS: Clear. CARDIOVASCULAR: S1 and S2 audible. No murmurs. ABDOMEN: Soft, nontender. Bowel sounds absent. NEUROLOGIC EXAMINATION: MENTAL STATUS: The patient is comatose. She does not respond to verbal or noxious painful stimuli. CRANIAL NERVES: Pupils 5 mm bilaterally, reactive to light. There is absent doll's eye movement. T here is absent gag reflex. There is absent corneal reflex. MOTOR: Tone is decreased in all 4 extremities. There is no withdrawal of extremities to noxious rigo nful stimuli. Plantars no response. IMPRESSION: 1. Anoxic encephalopathy, status post cardiac arrest. 2. Respiratory failure. RECOMMENDATIONS: 1. The patient has very minimal brainstem function. 2. The patient has shown no improvement in her neurologic status at all. 3. The patient's family would like to withdraw support probably tomorrow. 4. The patient does have a poor prognosis for meaningful survival. Thank you for the opportunity to participate in the care of this patient. Shaitsa Ceja MD cc: [id number] TT: 06/05/2016 10:27:02 Confirmation # [id number] Dictation # [id number]
[2016-06-05] MEDS: levETIRAcetam 500mg IVPB 100 ML IV SCH ×2 (10:50→21:16)
[2016-06-05 13:29] VITALS: TEMP 98.8
--- NOTE | 2016-06-05 14:00 | CP.CCUPN ---
<Kasia Toro - Last Filed: 06/05/16 15:12> CCU Subjective - Physician Review Events Since Last Encounter (Free Text): 06/05/16 13:59 Patient seen and examined bedside. No acute events overnight. Patient still not responsive to painful stimuli. No corneal reflex. No gag reflex. Overbreathing the vent at 24-30 breaths/min on PRVC 440/20/40%/5. Critical Care Time Spent (in minutes): 35 CCU Objective - Vital Signs / Intake & Output Vital Signs (Last 4 hours): Vital Signs Temp Pulse Resp BP Pulse Ox 06/05/16 13:29 98.8 F 06/05/16 13:14 99 H 30 H 143/63 98 Intake and Output (Last 8hrs): Intake & Output 06/04/16 06/05/16 06/05/16 22:59 06:59 14:59 Intake Total 1900 2050 Output Total 800 900 Balance 1100 1150 Weight 189 lb 1.6 oz Intake: IV 1900 2050 Right Femoral 1900 550 0.9 NS 1L 1500 Output: Urine 800 900 Urethral (Rangel) 800 900 Other: Voiding Method Indwelling Catheter # Bowel Movements 1 - Physical Exam Head: Positive for: Atraumatic, Normocephalic Pupils: Positive for: PERRL, Sluggish, Pinpoint (unequal pupil ) Extroacular Muscles: Positive for: EOMI Conjunctiva: Positive for: Normal Mouth: Positive for: Moist Mucous Membranes Neck: Positive for: Normal Range of Motion Respiratory/Chest: Positive for: Other (poor air exchange ) Cardiovascular: Positive for: Tachycardic, Other (+faint right femoral pulse). Negative for: Murmurs, Rub, Gallop Abdomen: Positive for: Normal Bowel Sounds. Negative for: Tenderness, Distention, Peritoneal Signs, Rebound, Guarding Back: Positive for: Normal Inspection Upper Extremity: Positive for: Normal Inspection. Negative for: Cyanosis, Edema Lower Extremity: Positive for: Normal Inspection, NORMAL PULSES. Negative for: Edema Neurological: Positive for: Other (no neurologicla function canbe determined a pt has been actively seizing. ) Skin: Positive for: Warm, Dry, Normal Color. Negative for: Rashes Psychiatric: Positive for: Alert, Normal Insight, Normal Concentration - Medications Active Medications: Active Medications Generic Name Dose Route Start Last Admin Trade Name Freq PRN Reason Stop Dose Admin Albuterol/Ipratropium 3 ml 06/01/16 08:00 06/05/16 13:28 Duoneb 3 Mg/0.5 Mg (3 Ml) Ud IH 3 ml [id number] YASSINE Administration Albuterol/Ipratropium 3 ml 06/01/16 04:54 Duoneb 3 Mg/0.5 Mg (3 Ml) Ud IH Q3 PRN Wheezing Aspirin 81 mg 06/01/16 13:30 06/05/16 10:49 Aspirin Chewable NG 81 mg DAILY YASSINE Administration Atorvastatin Calcium 20 mg 06/01/16 17:00 06/04/16 16:37 Lipitor NG 20 mg DIN YASSINE Administration Heparin Sodium (Porcine) 5,000 units 06/01/16 10:00 06/05/16 10:49 Heparin SC 5,000 units Q12 YASSINE Administration Protocol Vancomycin HCl 250 mls @ 167 mls/hr 06/01/16 17:00 06/05/16 05:32 Vancomycin 1gm IVPB 167 mls/hr Q12H YASSINE Administration Protocol Levetiracetam 100 mls @ 400 mls/hr 06/01/16 22:00 06/05/16 10:50 Keppra 500mg Ivpb IV 400 mls/hr Q12 YASSINE Administration Piperacillin Sod/Tazobactam Sod 100 mls @ 200 mls/hr 06/02/16 00:00 06/05/16 05 :33 Zosyn 3.375 In Ns 100ml IVPB 06/07/16 06:29 200 mls/hr Q6 YASSINE Administration Protocol Sodium Chloride 1,000 mls @ 125 mls/hr 06/02/16 07:45 06/04/16 23:45 Sodium Chloride 0.9% IV 125 mls/hr .Q8H YASSINE Administration Acetaminophen 100 mls @ 400 mls/hr 06/04/16 22:57 06/04/16 23:28 Ofirmev IVPB 06/06/16 22:58 400 mls/hr Q6H PRN Administration Fever >100.4 F Pantoprazole Sodium 40 mg 06/01/16 10:00 06/05/16 10:50 Protonix Inj IVP 40 mg DAILY YASSINE Administration - Patient Studies Lab Studies: Lab Studies 06/05/16 06/05/16 Range/Units 05:50 05:00 WBC 14.4 H (4.5-11.0) 10^3/ul RBC 3.35 L (3.5-6.1) 10^6/uL Hgb 9.8 L (12.0-16.0) gm/dL Hct 31.4 L (36.0-48.0) % MCV 93.7 (80.0-105.0) fL MCH 29.3 (25.0-35.0) pg MCHC 31.2 (31.0-37.0) g/dl RDW 16.0 H (11.5-14.5) % Plt Count 232 (120.0-450.0) 10^3/uL MPV 9.3 (7.0-11.0) fl Neutrophils % (Manual) 82 H (50.0-70.0) % Band Neutrophils % 1 (0-2) % Lymphocytes % (Manual) 10 L (22.0-35.0) % Monocytes % (Manual) 6 (1.0-6.0) % Myelocytes % 1 % Platelet Evaluation Normal (NORMAL) pCO2 31 L (35-45) mm/Hg pO2 79.0 L (80-100) mm/Hg HCO3 16.7 L (21-28) mmol/L ABG pH 7.34 L (7.35-7.45) ABG Total CO2 17.7 L (22-28) mmol.L ABG O2 Saturation 97.8 (95-98) % ABG O2 Content 14.5 L (15-23) ML/dl ABG Base Excess -8.1 L (-2.0-3.0) mmol/L ABG Hemoglobin 10.8 L (11.7-17.4) g/dL ABG Carboxyhemoglobin 2.1 H (0.5-1.5) % POC ABG HHb (Measured) 2.1 (0-5) % ABG Methemoglobin 1.1 (0.0-3.0) % ABG O2 Capacity 14.8 L (16-24) mL/dl Hgb O2 Saturation 94.7 L (95.0-98.0) % FiO2 40.0 % Sodium 148 (132-148) mmol/L Potassium 3.4 L (3.6-5.0) mmol/L Chloride 118 H (98-107) mmol/L Carbon Dioxide 17 L (21-33) mmol/L Anion Gap 16 (10-20) BUN 30 H (7-21) mg/dL Creatinine 1.2 (0.5-1.4) mg/dL Est GFR ( Amer) 57 Est GFR (Non-Af Amer) 47 Random Glucose 93 (70-110) mg/dL Calcium 7.9 L (8.4-10.5) mg/dL Total Bilirubin 0.5 (0.2-1.3) mg/dL AST 77 H (15-39) U/L ALT 40 (7-56) U/L Alkaline Phosphatase 74 (38-133) U/L Total Protein 5.3 L (5.8-8.3) g/dL Albumin 2.7 L (3.0-4.8) g/dL Globulin 2.6 gm/dL Albumin/Globulin Ratio 1.0 L (1.1-1.8) Laboratory Results - last 24 hr 06/05/16 06/05/16 05:00 05:50 WBC 14.4 H RBC 3.35 L Hgb 9.8 L Hct 31.4 L MCV 93.7 MCH 29.3 MCHC 31.2 RDW 16.0 H Plt Count 232 MPV 9.3 Neutrophils % (Manual) 82 H Band Neutrophils % 1 Lymphocytes % (Manual) 10 L Monocytes % (Manual) 6 Myelocytes % 1 Platelet Evaluation Normal pCO2 31 L pO2 79.0 L HCO3 16.7 L ABG pH 7.34 L ABG Total CO2 17.7 L ABG O2 Saturation 97.8 ABG O2 Content 14.5 L ABG Base Excess -8.1 L ABG Hemoglobin 10.8 L ABG Carboxyhemoglobin 2.1 H POC ABG HHb (Measured) 2.1 ABG Methemoglobin 1.1 ABG O2 Capacity 14.8 L Hgb O2 Saturation 94.7 L FiO2 40.0 Sodium 148 Potassium 3.4 L Chloride 118 H Carbon Dioxide 17 L Anion Gap 16 BUN 30 H Creatinine 1.2 Est GFR ( Amer) 57 Est GFR (Non-Af Amer) 47 Random Glucose 93 Calcium 7.9 L Total Bilirubin 0.5 AST 77 H ALT 40 Alkaline Phosphatase 74 Total Protein 5.3 L Albumin 2.7 L Globulin 2.6 Albumin/Globulin Ratio 1.0 L Fingerstick Blood Sugar Results: 103 Review of Systems - Review of Systems Systems not reviewed;Unavailable: Other (intubated, unresponsive, anoxic encephalopathy) Critical Care Progress Note - Ventilator Checklist PUD Prophalyxis: Yes DVT Prophylaxis: Yes - Vent Settings MODE:: PRVC TIDAL VOLUME:: 440 RESP RATE:: 20 FIO2:: 40 PEEP:: 5 - Extremities/Vascular Does the Patient have a Rangel Catheter?: Yes Does the Patient need a Rangel Catheter?: Yes - Prophylaxis GI Prophylaxis GI: PPI - Prophylaxis DVT Prophylaxis DVT: Heparin SQ Assessment/Plan - Assessment and Plan (Free Text) Assessment: 55 yo F w h/o RA, COPD, previous suicide attempt admitted to ICU with cardiac arrest and severe anoxic encephalopathy s/p cocaine, benzo and opiate overdose. Plan: Neuro: Patient still unresponsive, minimal brainstem function remains Repeat CT head shows diffuse brain edema and increased intracranial pressure. Possibility of multi-territorial infarcts/ischemia cannot be ruled out. Slight right to left midline shift associated with mass effect on right lateral ventricle. EEG shows no cerebral activity Continue Keppra for seizure ppx as per neuro Severe anoxic encephalopathy - Maintain normothermia, euvolemia, euglycemia CV: s/p cardiac arrest 2/2 cocaine, benzo and narcotic overdose Off all vasopresors Maintain MAP >65 Continue ASA Pulm: VDRF Day #5, 440/20/40%/5. Maintain Sp02>90, PaO2>60 Daily CXR and ABG while intubated Tentative terminal extubation tomorrow as per family Duonebs Q6 and Q3 PRN Renal: JB improved. Cr today 1.2. Continue NS @125cc/hr Hypokalemia 3.4 replaced. Re check AM labs GI: GI ppx Endo: No acute issues ID: WBC 14.4. Tmax/24 hours 102F. Continue Vanc, Zosyn as per ID Heme: Normocytic anemia. Hb 9.8. Stable. Continue to monitor DVT/GI ppx: SQH, Protonix Dispo: Tentative terminal extubation tomorrow with inpatient hospice as per family request - Date & Time Date: 06/05/16 Time: 15:17 <Valerio Peralta - Last Filed: 06/05/16 18:02> CCU Objective - Vital Signs / Intake & Output Vital Signs (Last 4 hours): Vital Signs Pulse Resp BP Pulse Ox 06/05/16 16:43 126 H 27 H 141/70 98 06/05/16 15:22 123 H 30 H 142/82 100 06/05/16 14:22 123 H 26 H 144/88 100 Intake and Output (Last 8hrs): Intake & Output 06/05/16 06/05/16 06/05/16 06:59 14:59 22:59 Intake Total 2049 1810 Output Total 900 1200 Balance 1150 610 Weight 189 lb 1.6 oz Intake: IV 2049 Right Femoral 550 0.9 NS 1L 1500 Other 1810 Output: Urine 900 Urethral (Rangel) 900 Emesis 1200 Other: Voiding Method Indwelling Catheter # Bowel Movements 1 2 - Medications Active Medications: Active Medications Generic Name Dose Route Start Last Admin Trade Name Freq PRN Reason Stop Dose Admin Albuterol/Ipratropium 3 ml 06/01/16 08:00 06/05/16 13:28 Duoneb 3 Mg/0.5 Mg (3 Ml) Ud IH 3 ml [id number] YASSINE Administration Albuterol/Ipratropium 3 ml 06/01/16 04:54 Duoneb 3 Mg/0.5 Mg (3 Ml) Ud IH Q3 PRN Wheezing Aspirin 81 mg 06/01/16 13:30 06/05/16 10:49 Aspirin Chewable NG 81 mg DAILY YASSINE Administration Atorvastatin Calcium 20 mg 06/01/16 17:00 06/04/16 16:37 Lipitor NG 20 mg DIN YASSINE Administration Heparin Sodium (Porcine) 5,000 units 06/01/16 10:00 06/05/16 10:49 Heparin SC 5,000 units Q12 YASSINE Administration Protocol Vancomycin HCl 250 mls @ 167 mls/hr 06/01/16 17:00 06/05/16 05:32 Vancomycin 1gm IVPB 167 mls/hr Q12H YASSINE Administration Protocol Levetiracetam 100 mls @ 400 mls/hr 06/01/16 22:00 06/05/16 10:50 Keppra 500mg Ivpb IV 400 mls/hr Q12 YASSINE Administration Piperacillin Sod/Tazobactam Sod 100 mls @ 200 mls/hr 06/02/16 00:00 06/05/16 13 :30 Zosyn 3.375 In Ns 100ml IVPB 06/07/16 06:29 200 mls/hr Q6 YASSINE Administration Protocol Sodium Chloride 1,000 mls @ 125 mls/hr 06/02/16 07:45 06/04/16 23:45 Sodium Chloride 0.9% IV 125 mls/hr .Q8H YASSINE Administration Acetaminophen 100 mls @ 400 mls/hr 06/04/16 22:57 06/04/16 23:28 Ofirmev IVPB 06/06/16 22:58 400 mls/hr Q6H PRN Administration Fever >100.4 F Potassium Chloride 100 mls @ 50 mls/hr 06/05/16 15:30 06/05/16 15:55 Potassium Chloride 20 Meq/100 Ml IVPB 06/05/16 19:29 50 mls/hr Q2H YASSINE Administration Pantoprazole Sodium 40 mg 06/01/16 10:00 06/05/16 10:50 Protonix Inj IVP 40 mg DAILY YASSINE Administration - Patient Studies Lab Studies: Lab Studies 06/05/16 06/05/16 06/05/16 Range/Units 17:45 11:38 06:45 WBC (4.5-11.0) 10^3/ul RBC (3.5-6.1) 10^6/uL Hgb (12.0-16.0) gm/dL Hct (36.0-48.0) % MCV (80.0-105.0) fL MCH (25.0-35.0) pg MCHC (31.0-37.0) g/dl RDW (11.5-14.5) % Plt Count (120.0-450.0) 10^3/uL MPV (7.0-11.0) fl Neutrophils % (Manual) (50.0-70.0) % Band Neutrophils % (0-2) % Lymphocytes % (Manual) (22.0-35.0) % Monocytes % (Manual) (1.0-6.0) % Myelocytes % % Platelet Evaluation (NORMAL) pCO2 (35-45) mm/Hg pO2 (80-100) mm/Hg HCO3 (21-28) mmol/L ABG pH (7.35-7.45) ABG Total CO2 (22-28) mmol.L ABG O2 Saturation (95-98) % ABG O2 Content (15-23) ML/dl ABG Base Excess (-2.0-3.0) mmol/L ABG Hemoglobin (11.7-17.4) g/dL ABG Carboxyhemoglobin (0.5-1.5) % POC ABG HHb (Measured) (0-5) % ABG Methemoglobin (0.0-3.0) % ABG O2 Capacity (16-24) mL/dl Hgb O2 Saturation (95.0-98.0) % FiO2 % Sodium (132-148) mmol/L Potassium (3.6-5.0) mmol/L Chloride (98-107) mmol/L Carbon Dioxide (21-33) mmol/L Anion Gap (10-20) BUN (7-21) mg/dL Creatinine (0.5-1.4) mg/dL Est GFR ( Amer) Est GFR (Non-Af Amer) POC Glucose (mg/dL) 84 102 103 (65-110) mg/dL Random Glucose (70-110) mg/dL Calcium (8.4-10.5) mg/dL Total Bilirubin (0.2-1.3) mg/dL AST (15-39) U/L ALT (7-56) U/L Alkaline Phosphatase (38-133) U/L Total Protein (5.8-8.3) g/dL Albumin (3.0-4.8) g/dL Globulin gm/dL Albumin/Globulin Ratio (1.1-1.8) 06/05/16 06/05/16 06/05/16 Range/Units 05:50 05:00 00:12 WBC 14.4 H (4.5-11.0) 10^3/ul RBC 3.35 L (3.5-6.1) 10^6/uL Hgb 9.8 L (12.0-16.0) gm/dL Hct 31.4 L (36.0-48.0) % MCV 93.7 (80.0-105.0) fL MCH 29.3 (25.0-35.0) pg MCHC 31.2 (31.0-37.0) g/dl RDW 16.0 H (11.5-14.5) % Plt Count 232 (120.0-450.0) 10^3/uL MPV 9.3 (7.0-11.0) fl Neutrophils % (Manual) 82 H (50.0-70.0) % Band Neutrophils % 1 (0-2) % Lymphocytes % (Manual) 10 L (22.0-35.0) % Monocytes % (Manual) 6 (1.0-6.0) % Myelocytes % 1 % Platelet Evaluation Normal (NORMAL) pCO2 31 L (35-45) mm/Hg pO2 79.0 L (80-100) mm/Hg HCO3 16.7 L (21-28) mmol/L ABG pH 7.34 L (7.35-7.45) ABG Total CO2 17.7 L (22-28) mmol.L ABG O2 Saturation 97.8 (95-98) % ABG O2 Content 14.5 L (15-23) ML/dl ABG Base Excess -8.1 L (-2.0-3.0) mmol/L ABG Hemoglobin 10.8 L (11.7-17.4) g/dL ABG Carboxyhemoglobin 2.1 H (0.5-1.5) % POC ABG HHb (Measured) 2.1 (0-5) % ABG Methemoglobin 1.1 (0.0-3.0) % ABG O2 Capacity 14.8 L (16-24) mL/dl Hgb O2 Saturation 94.7 L (95.0-98.0) % FiO2 40.0 % Sodium 148 (132-148) mmol/L Potassium 3.4 L (3.6-5.0) mmol/L Chloride 118 H (98-107) mmol/L Carbon Dioxide 17 L (21-33) mmol/L Anion Gap 16 (10-20) BUN 30 H (7-21) mg/dL Creatinine 1.2 (0.5-1.4) mg/dL Est GFR ( Amer) 57 Est GFR (Non-Af Amer) 47 POC Glucose (mg/dL) 83 (65-110) mg/dL Random Glucose 93 (70-110) mg/dL Calcium 7.9 L (8.4-10.5) mg/dL Total Bilirubin 0.5 (0.2-1.3) mg/dL AST 77 H (15-39) U/L ALT 40 (7-56) U/L Alkaline Phosphatase 74 (38-133) U/L Total Protein 5.3 L (5.8-8.3) g/dL Albumin 2.7 L (3.0-4.8) g/dL Globulin 2.6 gm/dL Albumin/Globulin Ratio 1.0 L (1.1-1.8) Laboratory Results - last 24 hr 06/05/16 06/05/16 06/05/16 00:12 05:00 05:50 WBC 14.4 H RBC 3.35 L Hgb 9.8 L Hct 31.4 L MCV 93.7 MCH 29.3 MCHC 31.2 RDW 16.0 H Plt Count 232 MPV 9.3 Neutrophils % (Manual) 82 H Band Neutrophils % 1 Lymphocytes % (Manual) 10 L Monocytes % (Manual) 6 Myelocytes % 1 Platelet Evaluation Normal pCO2 31 L pO2 79.0 L HCO3 16.7 L ABG pH 7.34 L ABG Total CO2 17.7 L ABG O2 Saturation 97.8 ABG O2 Content 14.5 L ABG Base Excess -8.1 L ABG Hemoglobin 10.8 L ABG Carboxyhemoglobin 2.1 H POC ABG HHb (Measured) 2.1 ABG Methemoglobin 1.1 ABG O2 Capacity 14.8 L Hgb O2 Saturation 94.7 L FiO2 40.0 Sodium 148 Potassium 3.4 L Chloride 118 H Carbon Dioxide 17 L Anion Gap 16 BUN 30 H Creatinine 1.2 Est GFR ( Amer) 57 Est GFR (Non-Af Amer) 47 POC Glucose (mg/dL) 83 Random Glucose 93 Calcium 7.9 L Total Bilirubin 0.5 AST 77 H ALT 40 Alkaline Phosphatase 74 Total Protein 5.3 L Albumin 2.7 L Globulin 2.6 Albumin/Globulin Ratio 1.0 L 06/05/16 06/05/16 06/05/16 06:45 11:38 17:45 WBC RBC Hgb Hct MCV MCH MCHC RDW Plt Count MPV Neutrophils % (Manual) Band Neutrophils % Lymphocytes % (Manual) Monocytes % (Manual) Myelocytes % Platelet Evaluation pCO2 pO2 HCO3 ABG pH ABG Total CO2 ABG O2 Saturation ABG O2 Content ABG Base Excess ABG Hemoglobin ABG Carboxyhemoglobin POC ABG HHb (Measured) ABG Methemoglobin ABG O2 Capacity Hgb O2 Saturation FiO2 Sodium Potassium Chloride Carbon Dioxide Anion Gap BUN Creatinine Est GFR ( Amer) Est GFR (Non-Af Amer) POC Glucose (mg/dL) 103 102 84 Random Glucose Calcium Total Bilirubin AST ALT Alkaline Phosphatase Total Protein Albumin Globulin Albumin/Globulin Ratio Addendum Addendum: 06/05/16 17:58 Patient was seen and examined at bedside with Dr. Nadia Rivas shoulder to shoulder. Her note reflects my exam, assessment and plan, except as below. Meds/Labs/ONE reviewed 55 yo with severe anoxic brain injury after cardiac arrest in the setting of cocaine intoxication. As per family wishes will convert to comfort care in am, terminal extubation in am. Palliative care consult and consider hospice care ccm time 40 min
--- NOTE | 2016-06-05 14:07 | CP.PCM.PN ---
<Atul Davis - Last Filed: 06/05/16 13:55> Subjective - Date & Time of Evaluation Date of Evaluation: 06/05/16 Time of Evaluation: 13:55 - Subjective Subjective: Pt seen and examined at bedside. Pt is intubated without sedation. No acute events overnight. Pt was found to have an abundance of secretions from her mouth overnight. Pt was suctioned at that time. Pt will be extubated tomorrow once family has gathered. Objective - Vital Signs/Intake and Output Vital Signs (last 24 hours): Temp Pulse Resp BP Pulse Ox 98.8 F 99 H 30 H 143/63 98 06/05/16 13:29 06/05/16 13:14 06/05/16 13:14 06/05/16 13:14 06/05/16 13:14 Intake and Output: 06/05/16 06/05/16 06:59 18:59 Intake Total 2050 Output Total 900 Balance 1150 - Medications Medications: Current Medications Albuterol/Ipratropium (Duoneb 3 Mg/0.5 Mg (3 Ml) Ud) 3 ml IH [id number] [facility] Last Admin: 06/05/16 13:28 Dose: 3 ml Albuterol/Ipratropium (Duoneb 3 Mg/0.5 Mg (3 Ml) Ud) 3 ml IH Q3 PRN PRN Reason: Wheezing Aspirin (Aspirin Chewable) 81 mg NG DAILY [facility] Last Admin: 06/05/16 10:49 Dose: 81 mg Atorvastatin Calcium (Lipitor) 20 mg NG DIN [facility] Last Admin: 06/04/16 16:37 Dose: 20 mg Heparin Sodium (Porcine) (Heparin) 5,000 units SC Q12 YASSINE PRN Reason: Protocol Last Admin: 06/05/16 10:49 Dose: 5,000 units Vancomycin HCl (Vancomycin 1gm) 250 mls @ 167 mls/hr IVPB Q12H YASSINE PRN Reason: Protocol Last Admin: 06/05/16 05:32 Dose: 167 mls/hr Levetiracetam (Keppra 500mg Ivpb) 100 mls @ 400 mls/hr IV Q12 [facility] Last Admin: 06/05/16 10:50 Dose: 400 mls/hr Piperacillin Sod/Tazobactam Sod (Zosyn 3.375 In Ns 100ml) 100 mls @ 200 mls/hr IVPB Q6 YASSINE PRN Reason: Protocol Stop: 06/07/16 06:29 Last Admin: 06/05/16 05:33 Dose: 200 mls/hr Sodium Chloride (Sodium Chloride 0.9%) 1,000 mls @ 125 mls/hr IV .Q8H [facility] Last Admin: 06/04/16 23:45 Dose: 125 mls/hr Acetaminophen (Ofirmev) 100 mls @ 400 mls/hr IVPB Q6H PRN PRN Reason: Fever >100.4 F Stop: 06/06/16 22:58 Last Admin: 06/04/16 23:28 Dose: 400 mls/hr Pantoprazole Sodium (Protonix Inj) 40 mg IVP DAILY [facility] Last Admin: 06/05/16 10:50 Dose: 40 mg - Labs Labs: 06/05/16 05:50 06/05/16 05:50 PT 12.1 Seconds (9.9-11.8) H 06/01/16 02:30 INR 1.12 (0.93-1.08) H 06/01/16 02:30 APTT 32.0 Seconds (23.7-30.8) H 06/01/16 02:30 - Constitutional Appears: Toxic, In Acute Distress - Head Exam Head Exam: ATRAUMATIC, NORMAL INSPECTION, NORMOCEPHALIC - ENT Exam Additional comments: ET tube in place. - Neck Exam Neck Exam: Normal Inspection. absent: Lymphadenopathy - Respiratory Exam Respiratory Exam: Clear to Ausculation Bilateral, NORMAL BREATHING PATTERN - Cardiovascular Exam Cardiovascular Exam: RRR, +S1, +S2 - GI/Abdominal Exam GI & Abdominal Exam: Soft, Normal Bowel Sounds. absent: Tenderness - Extremities Exam Extremities Exam: Normal Inspection, Pedal Edema. absent: Calf Tenderness - Neurological Exam Neurological Exam: absent: Alert, Awake - Skin Skin Exam: Intact, Normal Color, Warm Assessment and Plan - Assessment and Plan (Free Text) Plan: 55 y/o female with PMH of COPD, Hx of overdose and suicide attempt presents with cardiac arrest secondary to drug overdose complicated by anoxic brain injury. Pt remains intubated. Neurology recommends pt continue Keppra for seizure activity. ID recommends Vanco and Zosyn for empiric coverage for possible infection. EEG is abnormal, showing minimal brain activity. Pt will be extubated tomorrow once all family is able to be gathered. Neuro: Intubated, no sedation Repeat head CT (06/03) shows findings suggestive of diffuse brain edema and increased intracranial pressure. Possibility of multi territorial infarcts cannot be excluded. Slight midline shift and moderate sinuses mucosal disease. Continue Keppra for seizure like activity CV: Cardiac arrest Likely cardiogenic shock 2/2 cardiac arrest Goal MAP > 65 Pulm: Intubated, not sedated Maintain Sp02>90 GI: Protonix for GI prophylaxis Hep panel negative Heme: Leukocytosis Hg stable Heparin q12 Renal/: NS @ 125 Maintain euvolemia Monitor Urine output Continue to monitor electrolytes will replace/replete as needed Endo: Accu q6h Maintain euglycemia ID: Afebrile, leukocytosis Continue Vanc and Zosyn for empiric treatment Urine and blood cultures negative Maintain normothermia Seen, reviewed, and discussed with attending Ryan PGY-1 <Leticia SEGURA,Abelardo - Last Filed: 06/05/16 14:27> Objective - Vital Signs/Intake and Output Vital Signs (last 24 hours): Temp Pulse Resp BP Pulse Ox 98.8 F 123 H 26 H 144/88 100 06/05/16 13:29 06/05/16 14:22 06/05/16 14:22 06/05/16 14:22 06/05/16 14:22 Intake and Output: 06/05/16 06/05/16 06:59 18:59 Intake Total 2050 Output Total 900 Balance 1150 - Medications Medications: Current Medications Albuterol/Ipratropium (Duoneb 3 Mg/0.5 Mg (3 Ml) Ud) 3 ml IH [id number] [facility] Last Admin: 06/05/16 13:28 Dose: 3 ml Albuterol/Ipratropium (Duoneb 3 Mg/0.5 Mg (3 Ml) Ud) 3 ml IH Q3 PRN PRN Reason: Wheezing Aspirin (Aspirin Chewable) 81 mg NG DAILY [facility] Last Admin: 06/05/16 10:49 Dose: 81 mg Atorvastatin Calcium (Lipitor) 20 mg NG DIN [facility] Last Admin: 06/04/16 16:37 Dose: 20 mg Heparin Sodium (Porcine) (Heparin) 5,000 units SC Q12 YASSINE PRN Reason: Protocol Last Admin: 06/05/16 10:49 Dose: 5,000 units Vancomycin HCl (Vancomycin 1gm) 250 mls @ 167 mls/hr IVPB Q12H YASSINE PRN Reason: Protocol Last Admin: 06/05/16 05:32 Dose: 167 mls/hr Levetiracetam (Keppra 500mg Ivpb) 100 mls @ 400 mls/hr IV Q12 YASSINE Last Admin: 06/05/16 10:50 Dose: 400 mls/hr Piperacillin Sod/Tazobactam Sod (Zosyn 3.375 In Ns 100ml) 100 mls @ 200 mls/hr IVPB Q6 YASSINE PRN Reason: Protocol Stop: 06/07/16 06:29 Last Admin: 06/05/16 05:33 Dose: 200 mls/hr Sodium Chloride (Sodium Chloride 0.9%) 1,000 mls @ 125 mls/hr IV .Q8H YASSINE Last Admin: 06/04/16 23:45 Dose: 125 mls/hr Acetaminophen (Ofirmev) 100 mls @ 400 mls/hr IVPB Q6H PRN PRN Reason: Fever >100.4 F Stop: 06/06/16 22:58 Last Admin: 06/04/16 23:28 Dose: 400 mls/hr Pantoprazole Sodium (Protonix Inj) 40 mg IVP DAILY [facility] Last Admin: 06/05/16 10:50 Dose: 40 mg - Labs Labs: 06/05/16 05:50 06/05/16 05:50 PT 12.1 Seconds (9.9-11.8) H 06/01/16 02:30 INR 1.12 (0.93-1.08) H 06/01/16 02:30 APTT 32.0 Seconds (23.7-30.8) H 06/01/16 02:30 Attending/Attestation - Attestation I have personally seen and examined this patient.: Yes I have fully participated in the care of the patient.: Yes I have reviewed all pertinent clinical information, including history, physical exam and plan: Yes Notes (Text): Patient was seen and examined with manager of medical .Agreed with resident assessment and plan. 55 Yrs old female ,[place] cardiac arrest, Respiratory failure and anoxic encephlopathy.There is no improvement in patient mental status, off pressor.We will continue supportive care.Neurology and critical care team is following. Prognosis is guarded.
--- NOTE | 2016-06-05 15:18 | PN ---
DATE: 06/05/2016 SUBJECTIVE: The patient is not responsive on the vent. PHYSICAL EXAMINATION: VITAL SIGNS: Blood pressure 144/88, heart rate is 123, temperature 98.8, respiration 26. HEENT: Pale conjunctivae. CHEST: Minimal rhonchi. HEART: S1, S2 regular. EXTREMITIES: No edema. LABORATORIES: Hemoglobin and hematocrit 9.8 and 31.4, white count 14.4, platelet count 232,000. SMA -7: Sodium 148, potassium 3.4, chloride 118, CO2 of 17, glucose 93, BUN 30, creatinine 1.2. Troponi n yesterday 0.25. ASSESSMENT: 1. Status post cardiac arrest. 2. Anoxic encephalopathy. 3. Cocaine and opiate abuse. 4. Anemia. 5. Hypokalemia. 6. Borderline troponin elevation. RECOMMENDATIONS: Continue current conservative medical approach including aspirin 81 mg once a day, heparin 5000 units q.12 hours, Zosyn 3.375 grams intravenously q.6 hours, vancomycin 1 gram intraveno usly q.12 hours, Lipitor 20 mg once a day via nasogastric tube. Overall prognosis is poor and the amy pereira is not a suitable candidate for invasive cardiac workup. Elvin Dillon MD cc: [id number] TT: 06/05/2016 15:18:20 Confirmation # [id number] Dictation # [id number]
[2016-06-05] MEDS: Potassium Chloride 20 mEq 100 ML IVPB SCH ×2 (15:55→17:59)
--- NOTE | 2016-06-05 22:17 | CP.PCM.PN ---
Subjective - Date & Time of Evaluation Date of Evaluation: 06/05/16 Time of Evaluation: 20:45 - Subjective Subjective: Infectious Disease Follow Up: June 05, 2016 55 yo female with multiple medical problems including rheumatoid arthritis and rheumatoid lung disease, hypertension, end stage COPD, multiple UTIs, and endometriosis. The patient also has an extensive history of substance abuse to the point where she attempted to sniff a powdered substance when she was in the [facility] ICU in March 2016. The patient had cardiac arrest at home. She was down for 10 minutes when EMS arrived and had CPR for 37 minutes. Patient was found in asystole by EMS and gave 4 rounds of epinephrine until pulse returned which was V. fib. EMS shocked patient. As per family, empty bottles of tamezepam and cough medicine with codeine. Patient is currently intubated and ventilated. Extremely poor prognosis. No real improvement in the patient's mentation. [facility] came to evaluated the patient yesterday. Downtrending leukocytosis. All test findings strongly suggesting anoxic encephalopathy. Prognosis is dismal. She is hemodynamically stable. Objective - Vital Signs/Intake and Output Vital Signs (last 24 hours): Temp Pulse Resp BP Pulse Ox 98.8 F 130 H 30 H 149/91 H 98 06/05/16 13:29 06/05/16 20:00 06/05/16 18:23 06/05/16 20:00 06/05/16 20:00 Intake and Output: 06/05/16 06/06/16 18:59 06:59 Intake Total 1810 Output Total 1200 Balance 610 - Medications Medications: Current Medications Albuterol/Ipratropium (Duoneb 3 Mg/0.5 Mg (3 Ml) Ud) 3 ml IH [id number] [facility] Last Admin: 06/05/16 13:28 Dose: 3 ml Albuterol/Ipratropium (Duoneb 3 Mg/0.5 Mg (3 Ml) Ud) 3 ml IH Q3 PRN PRN Reason: Wheezing Aspirin (Aspirin Chewable) 81 mg NG DAILY [facility] Last Admin: 06/05/16 10:49 Dose: 81 mg Atorvastatin Calcium (Lipitor) 20 mg NG DIN [facility] Last Admin: 06/05/16 18:00 Dose: 20 mg Heparin Sodium (Porcine) (Heparin) 5,000 units SC Q12 YASSINE PRN Reason: Protocol Last Admin: 06/05/16 21:16 Dose: 5,000 units Vancomycin HCl (Vancomycin 1gm) 250 mls @ 167 mls/hr IVPB Q12H YASSINE PRN Reason: Protocol Last Admin: 06/05/16 18:02 Dose: 167 mls/hr Levetiracetam (Keppra 500mg Ivpb) 100 mls @ 400 mls/hr IV Q12 [facility] Last Admin: 06/05/16 21:16 Dose: 400 mls/hr Piperacillin Sod/Tazobactam Sod (Zosyn 3.375 In Ns 100ml) 100 mls @ 200 mls/hr IVPB Q6 YASSINE PRN Reason: Protocol Stop: 06/07/16 06:29 Last Admin: 06/05/16 18:01 Dose: 200 mls/hr Sodium Chloride (Sodium Chloride 0.9%) 1,000 mls @ 125 mls/hr IV .Q8H [facility] Last Admin: 06/04/16 23:45 Dose: 125 mls/hr Acetaminophen (Ofirmev) 100 mls @ 400 mls/hr IVPB Q6H PRN PRN Reason: Fever >100.4 F Stop: 06/06/16 22:58 Last Admin: 06/05/16 20:12 Dose: 400 mls/hr Pantoprazole Sodium (Protonix Inj) 40 mg IVP DAILY [facility] Last Admin: 06/05/16 10:50 Dose: 40 mg - Labs Labs: 06/05/16 05:50 06/05/16 05:50 PT 12.1 Seconds (9.9-11.8) H 06/01/16 02:30 INR 1.12 (0.93-1.08) H 06/01/16 02:30 APTT 32.0 Seconds (23.7-30.8) H 06/01/16 02:30 - Constitutional Appears: Non-toxic, No Acute Distress, Chronically Ill - Head Exam Additional comments: intubated and ventilated. - Eye Exam Additional comments: pinpoint and sluggish - ENT Exam ENT Exam: Mucous Membranes Moist, Normal External Ear Exam, TM's Normal Bilaterally Additional comments: intubated and ventilated - Neck Exam Neck Exam: Full ROM, Normal Inspection - Respiratory Exam Respiratory Exam: Clear to Ausculation Bilateral, NORMAL BREATHING PATTERN. absent: Rales, Rhonchi, Wheezes - Cardiovascular Exam Cardiovascular Exam: REGULAR RHYTHM, RRR, +S1, +S2 - GI/Abdominal Exam GI & Abdominal Exam: Soft, Normal Bowel Sounds. absent: Distended, Tenderness - Extremities Exam Extremities Exam: Normal Inspection - Neurological Exam Additional comments: intubated and ventilated. non-responsive so far. Assessment and Plan - Assessment and Plan (Free Text) Assessment: 55 yo female found unresponsive at home and down for at least 47 minutes pulseless. The patient had a cardiac arrest. The patient is currently intubated and ventilated. Very poorly responsive. Pupils pinpoint and sluggish. The patient has leukocytosis up to 22. Started on antibiotics of Vancomycin currently. Very poor prognosis at this point. Leukocytosis can be due to the cardiac arrest, anoxia, or infection. Multiple medical issues. Supportive care. Cardiac Shock more likely than Septic Shock. Overdose on Codeine and Benzodiazepene. Cocaine Use (still active user). Acute kidney injury likely secondary to hypoperfusion. Extremely poor prognosis for this patient at this time. Will continue with Vancomycin and Zosyn for treatment if there is an infectious issue. Leukocytosis improved to 14.0 today. Dismal prognosis. [facility] came to evaluate the patient yesterday. The patient with no change in mental function. Likely severe anoxic encephalopathy. Patient meeting criteria for brain . Dismal prognosis. Patient family has decided on comfort and terminal care at this point. There has been no mental improvement in the patient at all through this hospitalization. Thank you for allowing me to participate in the care of the patient, we will follow with you.
[2016-06-06] MEDS: Albuterol-Ipratrop 3 mg / 0.5 (3 ml) UD IH SCH ×3 (02:14→07:43)
[2016-06-06] MEDS: Sodium Chloride 0.9% 1,000 ML IV SCH (04:14)
[2016-06-06] MEDS: Piperacillin/Tazobact 3.375 gm 100 ML IVPB SCH (05:32)
[2016-06-06] MEDS: Vancomycin 1gm in NS 250ml 250 ML IVPB SCH (05:33)
[2016-06-06 07:43] LABS: HEMATOCRIT 35.2 % (36.0-48.0); MEAN CELL VOLUME 93.9 fL (80.0-105.0); MEAN CORPUSCULAR HEMOGLOBIN 28.8 pg (25.0-35.0); MEAN CORPUSCULAR HGB CONC 30.7 g/dl (31.0-37.0); MEAN PLATELET VOLUME 9.7 fl (7.0-11.0); PLATELET COUNT 389 10^3/uL (120.0-450.0); RED CELL DISTRIBUTION WIDTH 16.3 % (11.5-14.5)
[2016-06-06 07:53] LABS: WHITE BLOOD COUNT 37.5 10^3/ul (4.5-11.0)
[2016-06-06 07:54] VITALS: RESP 27
[2016-06-06 07:54] LABS: ADD MANUAL DIFF? YES
--- NOTE | 2016-06-06 07:58 | CP.CCUPN ---
<Kasia Toro - Last Filed: 06/06/16 11:30> CCU Subjective - Physician Review Events Since Last Encounter (Free Text): 06/06/16 07:50 Patient seen and examined bedside. No acute events overnight. No gag reflex, no corneal reflex. Noted to be actively seizing. Still on Keppra. Plan for terminal extubation today. Currently on PRVC 440/20/100%/5 satting 86%. Persistently sinus tach in 120-140's. Significant QTc prolongation on EKG 640ms. Critical Care Time Spent (in minutes): 30 CCU Objective - Vital Signs / Intake & Output Vital Signs (Last 4 hours): Vital Signs Pulse BP Pulse Ox 06/06/16 06:00 138 H 163/94 H 92 L 06/06/16 05:00 141 H 166/91 H 86 L 06/06/16 04:04 140 H 85 L 06/06/16 04:00 142 H 164/95 H 85 L 06/06/16 03:53 142 H 85 L Intake and Output (Last 8hrs): Intake & Output 06/05/16 06/06/16 06/06/16 22:59 06:59 14:59 Intake Total 1810 2050 Output Total 1200 1000 Balance 610 1050 Intake: IV 2049 0.9 NS 1L 0 Other 1810 Output: Urine 1000 Urethral (Rangel) 1000 Emesis 1200 Other: Voiding Method Indwelling Catheter # Bowel Movements 2 1 - Physical Exam Head: Positive for: Atraumatic, Normocephalic Pupils: Positive for: Sluggish, Pinpoint (unequal pupil ) Conjunctiva: Negative for: Normal (scleral edema) Mouth: Positive for: Moist Mucous Membranes Respiratory/Chest: Positive for: Accessory Muscle Use, Other (poor air exchange ). Negative for: Good Air Exchange Cardiovascular: Positive for: Tachycardic, Other (+faint right femoral pulse). Negative for: Murmurs, Rub, Gallop Abdomen: Negative for: Tenderness, Distention, Normal Bowel Sounds (diminished) , Peritoneal Signs, Rebound, Guarding Back: Positive for: Normal Inspection Upper Extremity: Positive for: Normal Inspection. Negative for: Cyanosis, Edema Lower Extremity: Positive for: Normal Inspection, NORMAL PULSES. Negative for: Edema Neurological: Positive for: Other (no neurological function can be determined as pt has been actively seizing. Not reponsive at all). Negative for: GCS=15, CN II-XII Intact Skin: Positive for: Warm, Dry. Negative for: Rashes, Normal Color Psychiatric: Negative for: Alert, Oriented x 3, Normal Insight, Normal Concentration - Medications Active Medications: Active Medications Generic Name Dose Route Start Last Admin Trade Name Freq PRN Reason Stop Dose Admin Albuterol/Ipratropium 3 ml 06/01/16 08:00 06/06/16 07:43 Duoneb 3 Mg/0.5 Mg (3 Ml) Ud IH 3 ml [id number] YASSINE Administration Albuterol/Ipratropium 3 ml 06/01/16 04:54 Duoneb 3 Mg/0.5 Mg (3 Ml) Ud IH Q3 PRN Wheezing Aspirin 81 mg 06/01/16 13:30 06/05/16 10:49 Aspirin Chewable NG 81 mg DAILY YASSINE Administration Atorvastatin Calcium 20 mg 06/01/16 17:00 06/05/16 18:00 Lipitor NG 20 mg DIN YASSINE Administration Heparin Sodium (Porcine) 5,000 units 06/01/16 10:00 06/05/16 21:16 Heparin SC 5,000 units Q12 YASSINE Administration Protocol Vancomycin HCl 250 mls @ 167 mls/hr 06/01/16 17:00 06/06/16 05:33 Vancomycin 1gm IVPB 167 mls/hr Q12H YASSINE Administration Protocol Levetiracetam 100 mls @ 400 mls/hr 06/01/16 22:00 06/05/16 21:16 Keppra 500mg Ivpb IV 400 mls/hr Q12 YASSINE Administration Piperacillin Sod/Tazobactam Sod 100 mls @ 200 mls/hr 06/02/16 00:00 06/06/16 05 :32 Zosyn 3.375 In Ns 100ml IVPB 06/07/16 06:29 200 mls/hr Q6 YASSINE Administration Protocol Sodium Chloride 1,000 mls @ 125 mls/hr 06/02/16 07:45 06/06/16 04:14 Sodium Chloride 0.9% IV 125 mls/hr .Q8H YASSINE Administration Acetaminophen 100 mls @ 400 mls/hr 06/04/16 22:57 06/05/16 20:12 Ofirmev IVPB 06/06/16 22:58 400 mls/hr Q6H PRN Administration Fever >100.4 F Pantoprazole Sodium 40 mg 06/01/16 10:00 06/05/16 10:50 Protonix Inj IVP 40 mg DAILY YASSINE Administration - Patient Studies Lab Studies: Lab Studies 06/06/16 06/05/16 06/05/16 Range/Units 06:12 23:46 17:45 POC Glucose (mg/dL) 121 H 98 84 (65-110) mg/dL 06/05/16 06/05/16 06/05/16 Range/Units 11:38 06:45 00:12 POC Glucose (mg/dL) 102 103 83 (65-110) mg/dL 06/04/16 Range/Units 19:28 POC Glucose (mg/dL) 81 (65-110) mg/dL Laboratory Results - last 24 hr 06/04/16 06/05/16 06/05/16 19:28 00:12 06:45 POC Glucose (mg/dL) 81 83 103 06/05/16 06/05/16 06/05/16 11:38 17:45 23:46 POC Glucose (mg/dL) 102 84 98 06/06/16 06:12 POC Glucose (mg/dL) 121 H Fingerstick Blood Sugar Results: 121 Review of Systems - Review of Systems Systems not reviewed;Unavailable: Intubated Critical Care Progress Note - Ventilator Checklist PUD Prophalyxis: Yes DVT Prophylaxis: Yes Assessment/Plan - Assessment and Plan (Free Text) Assessment: 55 yo F w h/o RA, COPD, previous suicide attempt admitted to ICU with cardiac arrest and severe anoxic encephalopathy s/p cocaine, benzo and opiate overdose pending terminal extubation today Plan: Neuro: Patient still unresponsive, no longer overbreathing the ventilator, requiring 100% FiO2 Repeat CT head shows diffuse brain edema and increased intracranial pressure. Possibility of multi-territorial infarcts/ischemia cannot be ruled out. Slight right to left midline shift associated with mass effect on right lateral ventricle. EEG shows no cerebral activity Continue Keppra for seizure ppx as patient is actively seizing Severe anoxic encephalopathy - Maintain normothermia, euvolemia, euglycemia Terminal extubation this AM. Palliative care following. [facility] aware. Patient may be candidate for tissue donation CV: s/p cardiac arrest 2/2 cocaine, benzo and narcotic overdose Off all vasopresors Maintain MAP >65 Continue ASA until terminal extubation Pulm: VDRF Day #6, 440/20/100%/5. Maintain Sp02>90, PaO2>60 Daily CXR and ABG while intubated Terminal extubation today Renal: JB improved. Cr today 1.1. Continue NS @125cc/hr for now Hypokalemia resolved s/p replacement GI: GI ppx Endo: No acute issues ID: Significant increase in leukocytopsis 37.5. No clear source identified. Possible PNA Tmax/24 hours 102F. Continue Vanc, Zosyn as per ID Heme: Normocytic anemia. Hb 10.8. Stable. Continue to monitor DVT/GI ppx: SQH, Protonix Dispo: Patient will be terminally extubated this AM to 3L NC, will be placed on Morphine for comfort and to prevent air hunger, ativan, scopolamine, will be placed on in-patient hospice. Once everything is ready for terminal extubation, will discontinue all orders for labwork and other medications aside from those just mentioned and Keppra given active seizures. - Date & Time Date: 06/06/16 Time: 11:30 <Valerio Peralta - Last Filed: 06/06/16 15:55> CCU Objective - Vital Signs / Intake & Output Intake and Output (Last 8hrs): Intake & Output 06/06/16 06/06/16 06/06/16 06:59 14:59 22:59 Intake Total 0 Output Total 1000 Balance 1050 Intake: IV 0 0.9 NS 1L 0 Output: Urine 1000 Urethral (Rangel) 1000 Other: # Bowel Movements 1 - Medications Active Medications: Active Medications Generic Name Dose Route Start Last Admin Trade Name Freq PRN Reason Stop Dose Admin Acetaminophen 650 mg 06/06/16 11:28 Tylenol 650 Mg Supp RC Q6H PRN Fever >100.4 F Levetiracetam 100 mls @ 400 mls/hr 06/01/16 22:00 06/06/16 09:35 Keppra 500mg Ivpb IV 400 mls/hr Q12 YASSINE Administration Morphine Sulfate 25 mls @ 2 mls/hr 06/06/16 11:23 Morphine Travel Pta 1 Mg/Ml IV PRN PRN GRINDING OPERATOR PER MD ORDER Protocol 2 MG/HR Scopolamine 1 patch 06/06/16 11:30 Transderm-Scop TD Q3D YASSINE - Patient Studies Lab Studies: Lab Studies 06/06/16 06/06/16 06/05/16 Range/Units 07:00 06:12 23:46 WBC 37.5 H* D (4.5-11.0) 10^3/ul RBC 3.75 (3.5-6.1) 10^6/uL Hgb 10.8 L (12.0-16.0) gm/dL Hct 35.2 L (36.0-48.0) % MCV 93.9 (80.0-105.0) fL MCH 28.8 (25.0-35.0) pg MCHC 30.7 L (31.0-37.0) g/dl RDW 16.3 H (11.5-14.5) % Plt Count 389 (120.0-450.0) 10^3/uL MPV 9.7 (7.0-11.0) fl Neutrophils % (Manual) 91 H (50.0-70.0) % Lymphocytes % (Manual) 8 L (22.0-35.0) % Monocytes % (Manual) 1 (1.0-6.0) % Toxic Granulation 1+ Platelet Evaluation Normal (NORMAL) Anisocytosis (manual) 1+ Ovalocytes Slight Sodium 150 H (132-148) mmol/L Potassium 4.3 (3.6-5.0) mmol/L Chloride 118 H (98-107) mmol/L Carbon Dioxide 17 L (21-33) mmol/L Anion Gap 19 (10-20) BUN 27 H (7-21) mg/dL Creatinine 1.1 (0.5-1.4) mg/dL Est GFR ( Amer) > 60 Est GFR (Non-Af Amer) 52 POC Glucose (mg/dL) 121 H 98 (65-110) mg/dL Random Glucose 120 H (70-110) mg/dL Calcium 8.3 L (8.4-10.5) mg/dL Phosphorus 4.2 (2.5-4.5) mg/dL Magnesium 1.7 (1.7-2.2) mg/dL Total Bilirubin 0.5 (0.2-1.3) mg/dL AST 78 H (15-39) U/L ALT 37 (7-56) U/L Alkaline Phosphatase 89 (38-133) U/L Total Protein 6.4 (5.8-8.3) g/dL Albumin 3.4 (3.0-4.8) g/dL Globulin 3.0 gm/dL Albumin/Globulin Ratio 1.1 (1.1-1.8) 06/05/16 06/04/16 Range/Units 17:45 19:28 WBC (4.5-11.0) 10^3/ul RBC (3.5-6.1) 10^6/uL Hgb (12.0-16.0) gm/dL Hct (36.0-48.0) % MCV (80.0-105.0) fL MCH (25.0-35.0) pg MCHC (31.0-37.0) g/dl RDW (11.5-14.5) % Plt Count (120.0-450.0) 10^3/uL MPV (7.0-11.0) fl Neutrophils % (Manual) (50.0-70.0) % Lymphocytes % (Manual) (22.0-35.0) % Monocytes % (Manual) (1.0-6.0) % Toxic Granulation Platelet Evaluation (NORMAL) Anisocytosis (manual) Ovalocytes Sodium (132-148) mmol/L Potassium (3.6-5.0) mmol/L Chloride (98-107) mmol/L Carbon Dioxide (21-33) mmol/L Anion Gap (10-20) BUN (7-21) mg/dL Creatinine (0.5-1.4) mg/dL Est GFR ( Amer) Est GFR (Non-Af Amer) POC Glucose (mg/dL) 84 81 (65-110) mg/dL Random Glucose (70-110) mg/dL Calcium (8.4-10.5) mg/dL Phosphorus (2.5-4.5) mg/dL Magnesium (1.7-2.2) mg/dL Total Bilirubin (0.2-1.3) mg/dL AST (15-39) U/L ALT (7-56) U/L Alkaline Phosphatase (38-133) U/L Total Protein (5.8-8.3) g/dL Albumin (3.0-4.8) g/dL Globulin gm/dL Albumin/Globulin Ratio (1.1-1.8) Laboratory Results - last 24 hr 06/04/16 06/05/16 06/05/16 19:28 17:45 23:46 WBC RBC Hgb Hct MCV MCH MCHC RDW Plt Count MPV Neutrophils % (Manual) Lymphocytes % (Manual) Monocytes % (Manual) Toxic Granulation Platelet Evaluation Anisocytosis (manual) Ovalocytes Sodium Potassium Chloride Carbon Dioxide Anion Gap BUN Creatinine Est GFR ( Amer) Est GFR (Non-Af Amer) POC Glucose (mg/dL) 81 84 98 Random Glucose Calcium Phosphorus Magnesium Total Bilirubin AST ALT Alkaline Phosphatase Total Protein Albumin Globulin Albumin/Globulin Ratio 06/06/16 06/06/16 06:12 07:00 WBC 37.5 H* D RBC 3.75 Hgb 10.8 L Hct 35.2 L MCV 93.9 MCH 28.8 MCHC 30.7 L RDW 16.3 H Plt Count 389 MPV 9.7 Neutrophils % (Manual) 91 H Lymphocytes % (Manual) 8 L Monocytes % (Manual) 1 Toxic Granulation 1+ Platelet Evaluation Normal Anisocytosis (manual) 1+ Ovalocytes Slight Sodium 150 H Potassium 4.3 Chloride 118 H Carbon Dioxide 17 L Anion Gap 19 BUN 27 H Creatinine 1.1 Est GFR ( Amer) > 60 Est GFR (Non-Af Amer) 52 POC Glucose (mg/dL) 121 H Random Glucose 120 H Calcium 8.3 L Phosphorus 4.2 Magnesium 1.7 Total Bilirubin 0.5 AST 78 H ALT 37 Alkaline Phosphatase 89 Total Protein 6.4 Albumin 3.4 Globulin 3.0 Albumin/Globulin Ratio 1.1 Addendum Addendum: 06/06/16 15:53 patient was seen and examined shoulder to shoulder twith Dr. Toro. Her note reflects my exam, assessment and plan, except as below. Meds/Labs/ONE reviewed. 55 yo female with anoxic brain injury after cardiac arrest secondary to cocaine abuse. As per family wishes--DNR/DNI, comfort care, terminal extubation ccm time 40 min
[2016-06-06 08:14] LABS: ALB/GLOB RATIO 1.1 (1.1-1.8); ALKALINE PHOSPHATASE 89 U/L (38-133); ALT/SGPT 37 U/L (7-56); AST/SGOT 78 U/L (15-39); BILIRUBIN,TOTAL 0.5 mg/dL (0.2-1.3); BLOOD UREA NITROGEN 27 mg/dL (7-21); CALCIUM 8.3 mg/dL (8.4-10.5); CARBON DIOXIDE 17 mmol/L (21-33); CHLORIDE 118 mmol/L (98-107); GFR AFRICAN-AMERICAN > 60; GLUCOSE,RANDOM 120 mg/dL (70-110); MAGNESIUM 1.7 mg/dL (1.7-2.2); PHOSPHOROUS 4.2 mg/dL (2.5-4.5); POTASSIUM 4.3 mmol/L (3.6-5.0); SODIUM 150 mmol/L (132-148); TOTAL PROTEIN 6.4 g/dL (5.8-8.3)
--- NOTE | 2016-06-06 08:42 | CP.PCM.CON ---
History of Present Illness - History of Present Illness History of Present Illness: Palliative consult requested by Dr Kelly Reason: Goals of care/hospice discussion 55 year old female admitted in a cardiopulmonary arrest after overdose. She is intuabted in the ICU. She has suffered severe anoxic brain injury. PMHx: Social History: Family History : Non Contributory Advance Care Planning; The patient does not have an advance directive,she is a full code. Review of Systems: Unable to obtain, patient is intubated and altered Past Patient History - Infectious Disease Hx of Infectious Diseases: MRSA - Tetanus Immunizations Tetanus Immunization: Unknown - Past Medical History & Family History Past Medical History?: Yes - Past Social History Smoking Status: Former Smoker - CARDIAC Hx Hypertension: Yes - PULMONARY Hx Asthma: Yes Hx Bronchitis: Yes Hx Chronic Obstructive Pulmonary Disease (COPD): Yes Hx Emphysema: Yes - NEUROLOGICAL Hx Neurological Disorder: No - HEENT Hx HEENT Problems: Yes Other/Comment: sinus sx x 2, removal of septum, removal of sinus tissue on L side - RENAL Hx Chronic Kidney Disease: No - ENDOCRINE/METABOLIC Hx Hypothyroidism: Yes - HEMATOLOGICAL/ONCOLOGICAL Hx Hepatitis B: No (states she had a false positive test x 1) - INTEGUMENTARY Hx Dermatological Problems: No - MUSCULOSKELETAL/RHEUMATOLOGICAL Hx Falls: No Hx Rheumatoid Arthritis: Yes - GASTROINTESTINAL Hx Diverticulitis: Yes - GENITOURINARY/GYNECOLOGICAL Hx Genitourinary Disorders: No - PSYCHIATRIC Hx Psychophysiologic Disorder: No Hx Anxiety: No Hx Bipolar Disorder: No Hx Depression: No Hx Emotional Abuse: No Hx Hallucinations: No Hx Panic Symptoms: No Hx Post Traumatic Stress Disorder: No Hx Psychosis: No Hx Physical Abuse: No Hx Schizophrenia: No Hx Sexual Abuse: No Hx Substance Use: No - SURGICAL HISTORY Hx Appendectomy: Yes Hx Cholecystectomy: Yes Hx Orthopedic Surgery: Yes - ANESTHESIA Hx Anesthesia Reactions: No Hx Malignant Hyperthermia: No Meds Allergies/Adverse Reactions: Allergies Allergy/AdvReac Type Severity Reaction Status Date / Time No Known Allergies Allergy Verified 06/01/16 01:54 - Medications Medications: Current Medications Albuterol/Ipratropium (Duoneb 3 Mg/0.5 Mg (3 Ml) Ud) 3 ml IH [id number] YASSINE Last Admin: 06/06/16 07:43 Dose: 3 ml Albuterol/Ipratropium (Duoneb 3 Mg/0.5 Mg (3 Ml) Ud) 3 ml IH Q3 PRN PRN Reason: Wheezing Aspirin (Aspirin Chewable) 81 mg NG DAILY [facility] Last Admin: 06/05/16 10:49 Dose: 81 mg Atorvastatin Calcium (Lipitor) 20 mg NG DIN [facility] Last Admin: 06/05/16 18:00 Dose: 20 mg Heparin Sodium (Porcine) (Heparin) 5,000 units SC Q12 YASSINE PRN Reason: Protocol Last Admin: 06/05/16 21:16 Dose: 5,000 units Vancomycin HCl (Vancomycin 1gm) 250 mls @ 167 mls/hr IVPB Q12H [facility]INE PRN Reason: Protocol Last Admin: 06/06/16 05:33 Dose: 167 mls/hr Levetiracetam (Keppra 500mg Ivpb) 100 mls @ 400 mls/hr IV Q12 [facility] Last Admin: 06/05/16 21:16 Dose: 400 mls/hr Piperacillin Sod/Tazobactam Sod (Zosyn 3.375 In Ns 100ml) 100 mls @ 200 mls/hr IVPB Q6 [facility] PRN Reason: Protocol Stop: 06/07/16 06:29 Last Admin: 06/06/16 05:32 Dose: 200 mls/hr Sodium Chloride (Sodium Chloride 0.9%) 1,000 mls @ 125 mls/hr IV .Q8H [facility] Last Admin: 06/06/16 04:14 Dose: 125 mls/hr Acetaminophen (Ofirmev) 100 mls @ 400 mls/hr IVPB Q6H PRN PRN Reason: Fever >100.4 F Stop: 06/06/16 22:58 Last Admin: 06/05/16 20:12 Dose: 400 mls/hr Pantoprazole Sodium (Protonix Inj) 40 mg IVP DAILY [facility] Last Admin: 06/05/16 10:50 Dose: 40 mg Physical Exam - Constitutional Appears: No Acute Distress - Head Exam Head Exam: NORMAL INSPECTION - Eye Exam Eye Exam: Normal appearance, PERRL - ENT Exam ENT Exam: Mucous Membranes Moist - Neck Exam Neck exam: Positive for: Normal Inspection - Respiratory Exam Respiratory Exam: Decreased Breath Sounds, NORMAL BREATHING PATTERN - Cardiovascular Exam Cardiovascular Exam: REGULAR RHYTHM, +S1 - GI/Abdominal Exam GI & Abdominal Exam: Diminished Bowel Sounds, Soft - Extremities Exam Extremities exam: Positive for: pedal edema Additional comments: spontaneous movement - Skin Skin Exam: Dry, Warm - Additional Findings Additional findings: Palliative performance scale rating 10 % Results - Vital Signs Recent Vital Signs: Last Vital Signs Temp 98.8 F 06/05/16 13:29 Pulse 138 H 06/06/16 06:00 Resp 27 H 06/06/16 07:53 BP 163/94 H 06/06/16 06:00 Pulse Ox 89 L 06/06/16 07:53 - Labs Result Diagrams: 06/06/16 07:00 06/06/16 07:00 Labs: Laboratory Results - last 24 hr 06/04/16 06/05/16 06/05/16 19:28 00:12 06:45 WBC RBC Hgb Hct MCV MCH MCHC RDW Plt Count MPV Sodium Potassium Chloride Carbon Dioxide Anion Gap BUN Creatinine Est GFR ( Amer) Est GFR (Non-Af Amer) POC Glucose (mg/dL) 81 83 103 Random Glucose Calcium Phosphorus Magnesium Total Bilirubin AST ALT Alkaline Phosphatase Total Protein Albumin Globulin Albumin/Globulin Ratio 06/05/16 06/05/16 06/05/16 11:38 17:45 23:46 WBC RBC Hgb Hct MCV MCH MCHC RDW Plt Count MPV Sodium Potassium Chloride Carbon Dioxide Anion Gap BUN Creatinine Est GFR ( Amer) Est GFR (Non-Af Amer) POC Glucose (mg/dL) 102 84 98 Random Glucose Calcium Phosphorus Magnesium Total Bilirubin AST ALT Alkaline Phosphatase Total Protein Albumin Globulin Albumin/Globulin Ratio 06/06/16 06/06/16 06:12 07:00 WBC 37.5 H* D RBC 3.75 Hgb 10.8 L Hct 35.2 L MCV 93.9 MCH 28.8 MCHC 30.7 L RDW 16.3 H Plt Count 389 MPV 9.7 Sodium 150 H Potassium 4.3 Chloride 118 H Carbon Dioxide 17 L Anion Gap 19 BUN 27 H Creatinine 1.1 Est GFR ( Amer) > 60 Est GFR (Non-Af Amer) 52 POC Glucose (mg/dL) 121 H Random Glucose 120 H Calcium 8.3 L Phosphorus 4.2 Magnesium 1.7 Total Bilirubin 0.5 AST 78 H ALT 37 Alkaline Phosphatase 89 Total Protein 6.4 Albumin 3.4 Globulin 3.0 Albumin/Globulin Ratio 1.1 Assessment & Plan - Assessment and Plan (Free Text) Assessment: 55 year old cardiopulmonary arrest, anoxic brain injury s/p drug overdose. Patient responds to painful stimuli. SWRegi has been in discursion with family regarding terminal extubation and comfort care. family has indictaed to her that they want to proceed with extubation and are interested in transiting her to hospice care. I met with patient's sister who was at bedside. She is a hospice nurse in [place]. She states that family is going to move forward with extubation tomorrow. [facility] hospice services reviewed with sister. All questions answered. Pyscghosocola support given. [facility] support offered Time spent in discussion with sister regarding extubation and end of life care, 20 minutes Plan: Hospice referral for [facility] services - Date & Time Date: 06/05/16 Time: 03:00
--- NOTE | 2016-06-06 09:25 | RAD ---
HISTORY: ett COMPARISON: Comparison is made to the previous study dated 06/04/2016 FINDINGS: LUNGS: No significant interval change in the lungs noted since the previous study. The ET tube is seen at appropriate position PLEURA: No significant pleural effusion identified, no pneumothorax apparent. CARDIOVASCULAR: Normal. OSSEOUS STRUCTURES: No significant abnormalities. VISUALIZED UPPER ABDOMEN: The NG tube seen extending to the abdomen. OTHER FINDINGS: None. IMPRESSION: No significant interval change compared to the previous exam. Appropriate position of the support devices.
[2016-06-06] MEDS: levETIRAcetam 500mg IVPB 100 ML IV SCH (09:35)
--- NOTE | 2016-06-06 09:41 | CP.PCM.CON ---
History of Present Illness - History of Present Illness History of Present Illness: Palliative services consulted by Dr Leticia antony Gaols of care/ hospice discussion 55 year old female who suffered cardiopulmonary arrest and anoxic brain injury after overdosing on cocaine. PMHx; COPD, drug abuse. Social History: Former smoker, drug abuse, no alcohol. Lives with spouse. Family History : Non contributory Advance Care Planning; She does not have an advanced directive Review of Systems: Unable to obtain, intubated, altered Past Patient History - Infectious Disease Hx of Infectious Diseases: MRSA - Tetanus Immunizations Tetanus Immunization: Unknown - Past Medical History & Family History Past Medical History?: Yes - Past Social History Smoking Status: Former Smoker - CARDIAC Hx Hypertension: Yes - PULMONARY Hx Asthma: Yes Hx Bronchitis: Yes Hx Chronic Obstructive Pulmonary Disease (COPD): Yes Hx Emphysema: Yes - NEUROLOGICAL Hx Neurological Disorder: No - HEENT Hx HEENT Problems: Yes Other/Comment: sinus sx x 2, removal of septum, removal of sinus tissue on L side - RENAL Hx Chronic Kidney Disease: No - ENDOCRINE/METABOLIC Hx Hypothyroidism: Yes - HEMATOLOGICAL/ONCOLOGICAL Hx Hepatitis B: No (states she had a false positive test x 1) - INTEGUMENTARY Hx Dermatological Problems: No - MUSCULOSKELETAL/RHEUMATOLOGICAL Hx Falls: No Hx Rheumatoid Arthritis: Yes - GASTROINTESTINAL Hx Diverticulitis: Yes - GENITOURINARY/GYNECOLOGICAL Hx Genitourinary Disorders: No - PSYCHIATRIC Hx Psychophysiologic Disorder: No Hx Anxiety: No Hx Bipolar Disorder: No Hx Depression: No Hx Emotional Abuse: No Hx Hallucinations: No Hx Panic Symptoms: No Hx Post Traumatic Stress Disorder: No Hx Psychosis: No Hx Physical Abuse: No Hx Schizophrenia: No Hx Sexual Abuse: No Hx Substance Use: No - SURGICAL HISTORY Hx Appendectomy: Yes Hx Cholecystectomy: Yes Hx Orthopedic Surgery: Yes - ANESTHESIA Hx Anesthesia Reactions: No Hx Malignant Hyperthermia: No Meds Allergies/Adverse Reactions: Allergies Allergy/AdvReac Type Severity Reaction Status Date / Time No Known Allergies Allergy Verified 06/01/16 01:54 - Medications Medications: Current Medications Albuterol/Ipratropium (Duoneb 3 Mg/0.5 Mg (3 Ml) Ud) 3 ml IH [id number] [facility] Last Admin: 06/06/16 07:43 Dose: 3 ml Albuterol/Ipratropium (Duoneb 3 Mg/0.5 Mg (3 Ml) Ud) 3 ml IH Q3 PRN PRN Reason: Wheezing Aspirin (Aspirin Chewable) 81 mg NG DAILY [facility] Last Admin: 06/05/16 10:49 Dose: 81 mg Atorvastatin Calcium (Lipitor) 20 mg NG DIN [facility] Last Admin: 06/05/16 18:00 Dose: 20 mg Heparin Sodium (Porcine) (Heparin) 5,000 units SC Q12 [facility] PRN Reason: Protocol Last Admin: 06/05/16 21:16 Dose: 5,000 units Vancomycin HCl (Vancomycin 1gm) 250 mls @ 167 mls/hr IVPB Q12H [facility] PRN Reason: Protocol Last Admin: 06/06/16 05:33 Dose: 167 mls/hr Levetiracetam (Keppra 500mg Ivpb) 100 mls @ 400 mls/hr IV Q12 [facility] Last Admin: 06/05/16 21:16 Dose: 400 mls/hr Piperacillin Sod/Tazobactam Sod (Zosyn 3.375 In Ns 100ml) 100 mls @ 200 mls/hr IVPB Q6 [facility] PRN Reason: Protocol Stop: 06/07/16 06:29 Last Admin: 06/06/16 05:32 Dose: 200 mls/hr Sodium Chloride (Sodium Chloride 0.9%) 1,000 mls @ 125 mls/hr IV .Q8H [facility] Last Admin: 06/06/16 04:14 Dose: 125 mls/hr Acetaminophen (Ofirmev) 100 mls @ 400 mls/hr IVPB Q6H PRN PRN Reason: Fever >100.4 F Stop: 06/06/16 22:58 Last Admin: 06/05/16 20:12 Dose: 400 mls/hr Pantoprazole Sodium (Protonix Inj) 40 mg IVP DAILY [facility] Last Admin: 06/05/16 10:50 Dose: 40 mg Physical Exam - Constitutional Appears: Chronically Ill - Eye Exam Eye Exam: Normal appearance - ENT Exam ENT Exam: Mucous Membranes Moist - Neck Exam Neck exam: Positive for: Normal Inspection - Respiratory Exam Respiratory Exam: Decreased Breath Sounds, NORMAL BREATHING PATTERN - Cardiovascular Exam Cardiovascular Exam: REGULAR RHYTHM, +S1, +S2 - GI/Abdominal Exam GI & Abdominal Exam: Diminished Bowel Sounds, Soft - Extremities Exam Additional comments: spontaneous movement - Neurological Exam Neurological exam: Altered - Skin Skin Exam: Dry, Pallor - Additional Findings Additional findings: Palliative performance scale rating 10 % Results - Vital Signs Recent Vital Signs: Last Vital Signs Temp 98.8 F 06/05/16 13:29 Pulse 138 H 06/06/16 06:00 Resp 27 H 06/06/16 07:53 BP 163/94 H 06/06/16 06:00 Pulse Ox 89 L 06/06/16 07:53 - Labs Result Diagrams: 06/06/16 07:00 06/06/16 07:00 Labs: Laboratory Results - last 24 hr 06/04/16 06/05/16 06/05/16 19:28 00:12 06:45 WBC RBC Hgb Hct MCV MCH MCHC RDW Plt Count MPV Sodium Potassium Chloride Carbon Dioxide Anion Gap BUN Creatinine Est GFR ( Amer) Est GFR (Non-Af Amer) POC Glucose (mg/dL) 81 83 103 Random Glucose Calcium Phosphorus Magnesium Total Bilirubin AST ALT Alkaline Phosphatase Total Protein Albumin Globulin Albumin/Globulin Ratio 06/05/16 06/05/16 06/05/16 11:38 17:45 23:46 WBC RBC Hgb Hct MCV MCH MCHC RDW Plt Count MPV Sodium Potassium Chloride Carbon Dioxide Anion Gap BUN Creatinine Est GFR ( Amer) Est GFR (Non-Af Amer) POC Glucose (mg/dL) 102 84 98 Random Glucose Calcium Phosphorus Magnesium Total Bilirubin AST ALT Alkaline Phosphatase Total Protein Albumin Globulin Albumin/Globulin Ratio 06/06/16 06/06/16 06:12 07:00 WBC 37.5 H* D RBC 3.75 Hgb 10.8 L Hct 35.2 L MCV 93.9 MCH 28.8 MCHC 30.7 L RDW 16.3 H Plt Count 389 MPV 9.7 Sodium 150 H Potassium 4.3 Chloride 118 H Carbon Dioxide 17 L Anion Gap 19 BUN 27 H Creatinine 1.1 Est GFR ( Amer) > 60 Est GFR (Non-Af Amer) 52 POC Glucose (mg/dL) 121 H Random Glucose 120 H Calcium 8.3 L Phosphorus 4.2 Magnesium 1.7 Total Bilirubin 0.5 AST 78 H ALT 37 Alkaline Phosphatase 89 Total Protein 6.4 Albumin 3.4 Globulin 3.0 Albumin/Globulin Ratio 1.1 Assessment & Plan - Assessment and Plan (Free Text) Assessment: 55 year old female s/p cardiopulmonary arrest, anoxic brain injurt s/p drug overdoase. Regi MCRAE has been in discussion with family regrding terminal extubation and comfort care. Family indicated that they want to proceed with extubation tomorrow. Patient sister from [place] at [facility]. She is a hospice nurse in [place]. She states that family will proceed with terminal extubation tomorrow as planned. She is interested in hospice care post extubation. GIP services explained detail. Questions answered. Psychosocial support given. Spiritual support offered. Time spent in discussion with sister regarding extubation process, end of life care, 20 minutes Plan: Hospice evaluation - Date & Time Date: 06/05/16 Time: 17:00
--- NOTE | 2016-06-06 10:36 | PN ---
DATE: 06/06/2016 SUBJECTIVE: The patient is lying on the bed, on a ventilator in no acute distress. PHYSICAL EXAMINATION: VITAL SIGNS: Her blood pressure is 152/90, heart rate is 135 per minute. She is breathing at a rate of 25 per minute and she is afebrile. HEENT: Normocephalic, atraumatic. NECK: Supple. There are no carotid bruits. LUNGS: Clear. CARDIOVASCULAR: S1, S2 audible. ABDOMEN: Soft, nontender, bowel sounds absent. NEUROLOGIC EXAMINATION: MENTAL STATUS: The patient is comatose, does not follow any commands. CRANIAL NERVES: Pupils are 4 mm bilaterally reactive to light. Positive doll's eye movement. No co rneal reflex, no gag reflex. There is decreased tone in all 4 extremities. There is no withdrawal o f extremities to noxious painful stimuli. Plantars no response. IMPRESSION: 1. Anoxic encephalopathy status post cardiac arrest. 2. Respiratory failure. RECOMMENDATIONS: 1. The patient has minimal brainstem function. 2. There is no meaningful improvement in neurologic status. 3. The patient is to have terminal extubation today as per family's wishes. 4. The patient's prognosis for neurologic improvement is poor. Poor. Thank you for the opportunity to participate in the care of this patient. Shaista Ceja MD cc: [id number] TT: 06/06/2016 10:35:40 Confirmation # [id number] Dictation # [id number] josette
[2016-06-06 11:15] LABS: ANISOCYTOSIS 1+; NEUTROPHIL 91 % (50.0-70.0); PLATELET ESTIMATE NORMAL (NORMAL)
[2016-06-06 11:16] LABS: OVALOCYTES SLIGHT; TOXIC GRANULATION 1+
[2016-06-06] MEDS ORDERED: Morphine PCA 1 mg/ml (25ml) 25 ML IV PRN (11:23)
[2016-06-06] MEDS ORDERED: Morphine 2 mg/ml ISec IVP STA (11:25)
[2016-06-06] MEDS ORDERED: Scopolamine 1.5 mg/24 hr Patch TD SCH (11:30)
--- NOTE | 2016-06-06 13:42 | CP.PCM.PN ---
Subjective - Date & Time of Evaluation Date of Evaluation: 06/06/16 Time of Evaluation: 11:30 - Subjective Subjective: Intubated, unresponsive. Objective - Vital Signs/Intake and Output Vital Signs (last 24 hours): Temp Pulse Resp BP Pulse Ox 98.8 F 138 H 27 H 163/94 H 89 L 06/05/16 13:29 06/06/16 06:00 06/06/16 07:53 06/06/16 06:00 06/06/16 07:53 Intake and Output: 06/06/16 06/06/16 06:59 18:59 Intake Total 0 Output Total 1000 Balance 1050 - Medications Medications: Current Medications Acetaminophen (Tylenol 650 Mg Supp) 650 mg RC Q6H PRN PRN Reason: Fever >100.4 F Levetiracetam (Keppra 500mg Ivpb) 100 mls @ 400 mls/hr IV Q12 [facility] Last Admin: 06/06/16 09:35 Dose: 400 mls/hr Morphine Sulfate (Morphine Cork Insulation Setter 1 Mg/Ml) 25 mls @ 2 mls/hr IV PRN PRN; Protocol ; 2 MG/HR PRN Reason: PAIN COORDINATOR PER MD ORDER Scopolamine (Transderm-Scop) 1 patch TD Q3D [facility] - Labs Labs: 06/06/16 07:00 06/06/16 07:00 PT 12.1 Seconds (9.9-11.8) H 06/01/16 02:30 INR 1.12 (0.93-1.08) H 06/01/16 02:30 APTT 32.0 Seconds (23.7-30.8) H 06/01/16 02:30 - Constitutional Appears: Chronically Ill - Eye Exam Eye Exam: Normal appearance - Respiratory Exam Respiratory Exam: Decreased Breath Sounds - Cardiovascular Exam Cardiovascular Exam: REGULAR RHYTHM, +S1, +S2 - GI/Abdominal Exam GI & Abdominal Exam: Soft, Diminished Bowel Sounds - Extremities Exam Extremities Exam: Pedal Edema - Neurological Exam Neurological Exam: Altered Assessment and Plan - Assessment and Plan (Free Text) Assessment: 55 year old anoxic brain injury, respiratory failure s/p cardiopulmonary arrest. Family at bedside. SW. Regi Acevedo and and I met with patients and sister. Family wants to proceed with terminal extubation. Family understands the ramifications of their decision and is aware that patient is likely to . Family wants comfort care only. Process for extubation explained. Psychosocial support given. Patient terminally extubated and with family present at bedside. Bereavement counseling given Plan: Thank you for allowing me to participate in this patients care
--- NOTE | 2016-06-06 14:32 | CP.PCM.DIS ---
<Atul Davis - Last Filed: 06/06/16 14:18> Provider - Provider Date of Admission: 06/01/16 02:38 Attending physician: Abelardo Kelly MD Primary care physician: Carleen Peña MD Consults: ID - Dr. Yepez Neuro - Dr. Ceja Palliative care - Kirti Paramonte Time Spent in preparation of Discharge (in minutes): 45 Diagnosis - Discharge Diagnosis (1) Cardiac arrest Status: Acute Priority: High (2) Sepsis Status: Acute Priority: High (3) Hypoxia Status: Acute Priority: High (4) Suicide attempt Status: Acute Priority: High (5) Drug overdose Status: Suspected Priority: High Hospital Course - Lab Results Lab Results: Micro Results 06/01/16 07:26 Nose MRSA Culture (Admit) - Final MRSA DETECTED 06/01/16 07:00 Urine,Clean Catch Urine Culture - Final No Growth (<1,000 CFU/ML) 06/01/16 03:00 Urine Urine Culture - Final No Growth (<1,000 CFU/ML) Most Recent Lab Values WBC 37.5 10^3/ul (4.5-11.0) H* D 06/06/16 07:00 RBC 3.75 10^6/uL (3.5-6.1) 06/06/16 07:00 Hgb 10.8 gm/dL (12.0-16.0) L 06/06/16 07:00 Hct 35.2 % (36.0-48.0) L 06/06/16 07:00 MCV 93.9 fL (80.0-105.0) 06/06/16 07:00 MCH 28.8 pg (25.0-35.0) 06/06/16 07:00 MCHC 30.7 g/dl (31.0-37.0) L 06/06/16 07:00 RDW 16.3 % (11.5-14.5) H 06/06/16 07:00 Plt Count 389 10^3/uL (120.0-450.0) 06/06/16 07:00 MPV 9.7 fl (7.0-11.0) 06/06/16 07:00 Gran % 79.8 % (50.0-68.0) H 06/04/16 06:15 Lymph % (Auto) 12.2 % (22.0-35.0) L 06/04/16 06:15 Ramsey % (Auto) 7.2 % (1.0-6.0) H 06/04/16 06:15 Eos % (Auto) 0.7 % (1.5-5.0) L 06/04/16 06:15 Baso % (Auto) 0.1 % (0.0-3.0) 06/04/16 06:15 Gran # 11.13 (1.4-6.5) H 06/04/16 06:15 Lymph # 1.7 (1.2-3.4) 06/04/16 06:15 Ramsey # 1.0 (0.1-0.6) H 06/04/16 06:15 Eos # 0.1 (0.0-0.7) 06/04/16 06:15 Baso # 0.02 K/mm3 (0.0-2.0) 06/04/16 06:15 Neutrophils % (Manual) 91 % (50.0-70.0) H 06/06/16 07:00 Band Neutrophils % 1 % (0-2) 06/05/16 05:50 Lymphocytes % (Manual) 8 % (22.0-35.0) L 06/06/16 07:00 Monocytes % (Manual) 1 % (1.0-6.0) 06/06/16 07:00 Myelocytes % 1 % 06/05/16 05:50 Toxic Granulation 1+ 06/06/16 07:00 Platelet Evaluation Normal (NORMAL) 06/06/16 07:00 Large Platelets Present 06/01/16 06:46 Giant Platelets Present 06/01/16 06:46 Hypochromasia 1+ 06/01/16 06:46 Poikilocytosis (manual Slight 06/01/16 06:46 Anisocytosis (manual) 1+ 06/06/16 07:00 Tear Drop Cells Slight 06/01/16 06:46 Ovalocytes Slight 06/06/16 07:00 PT 12.1 Seconds (9.9-11.8) H 06/01/16 02:30 INR 1.12 (0.93-1.08) H 06/01/16 02:30 APTT 32.0 Seconds (23.7-30.8) H 06/01/16 02:30 pCO2 31 mm/Hg (35-45) L 06/05/16 05:00 pO2 79.0 mm/Hg (80-100) L 06/05/16 05:00 HCO3 16.7 mmol/L (21-28) L 06/05/16 05:00 ABG pH 7.34 (7.35-7.45) L 06/05/16 05:00 ABG Total CO2 17.7 mmol.L (22-28) L 06/05/16 05:00 ABG O2 Saturation 97.8 % (95-98) 06/05/16 05:00 ABG O2 Content 14.5 ML/dl (15-23) L 06/05/16 05:00 ABG Base Excess -8.1 mmol/L (-2.0-3.0) L 06/05/16 05:00 ABG Hemoglobin 10.8 g/dL (11.7-17.4) L 06/05/16 05:00 ABG Carboxyhemoglobin 2.1 % (0.5-1.5) H 06/05/16 05:00 POC ABG HHb (Measured) 2.1 % (0-5) 06/05/16 05:00 ABG Methemoglobin 1.1 % (0.0-3.0) 06/05/16 05:00 ABG O2 Capacity 14.8 mL/dl (16-24) L 06/05/16 05:00 ABG Potassium 3.8 mmol/L (3.6-5.2) 06/01/16 10:15 VBG pH 7.24 (7.32-7.43) L 06/01/16 06:46 VBG pCO2 61.0 (40-60) H 06/01/16 06:46 VBG HCO3 26.1 mmol/l (21-28) 06/01/16 06:46 VBG Total CO2 28.0 mmol.L (22-28) 06/01/16 06:46 VBG O2 Sat (Calc) 59.3 % (40-65) 06/01/16 06:46 VBG Base Excess -2.5 mmol/L (0.0-2.0) L 06/01/16 06:46 VBG Potassium 4.6 mmol/L (3.6-5.2) 06/01/16 06:46 Hgb O2 Saturation 94.7 % (95.0-98.0) L 06/05/16 05:00 Sodium 144.0 mmol/L (132-148) 06/01/16 10:15 Chloride 117.0 mmol/L (98-107) H 06/01/16 10:15 Glucose 182 mg/dl (65-105) H 06/01/16 10:15 Lactate 1.2 mmol/L (0.7-2.1) 06/01/16 10:15 Mechanical Rate 10 06/01/16 10:15 FiO2 40.0 % 06/05/16 05:00 Tidal Volume 440 06/01/16 10:15 PEEP 5 06/01/16 10:15 Sodium 150 mmol/L (132-148) H 06/06/16 07:00 Potassium 4.3 mmol/L (3.6-5.0) 06/06/16 07:00 Chloride 118 mmol/L (98-107) H 06/06/16 07:00 Carbon Dioxide 17 mmol/L (21-33) L 06/06/16 07:00 Anion Gap 19 (10-20) 06/06/16 07:00 BUN 27 mg/dL (7-21) H 06/06/16 07:00 Creatinine 1.1 mg/dL (0.5-1.4) 06/06/16 07:00 Est GFR ( Amer) > 60 06/06/16 07:00 Est GFR (Non-Af Amer) 52 06/06/16 07:00 POC Glucose (mg/dL) 121 mg/dL (65-110) H 06/06/16 06:12 Random Glucose 120 mg/dL (70-110) H 06/06/16 07:00 Calcium 8.3 mg/dL (8.4-10.5) L 06/06/16 07:00 Phosphorus 4.2 mg/dL (2.5-4.5) 06/06/16 07:00 Magnesium 1.7 mg/dL (1.7-2.2) 06/06/16 07:00 Total Bilirubin 0.5 mg/dL (0.2-1.3) 06/06/16 07:00 AST 78 U/L (15-39) H 06/06/16 07:00 ALT 37 U/L (7-56) 06/06/16 07:00 Alkaline Phosphatase 89 U/L (38-133) 06/06/16 07:00 Lactate Dehydrogenase 2463 U/L (333-699) H 06/01/16 16:00 Total Creatine Kinase 2950 U/L (35-230) H 06/01/16 16:00 CK-MB (CK-2) 16.5 ng/mL (0.0-3.6) H 06/01/16 16:00 CK-MB (CK-2) % 0.6 % (2.5-3.0) L 06/01/16 16:00 Troponin I 0.25 ng/mL H* D 06/04/16 06:15 NT-Pro-B Natriuret Pep 85.1 pg/mL (0-450) 06/01/16 02:30 Total Protein 6.4 g/dL (5.8-8.3) 06/06/16 07:00 Albumin 3.4 g/dL (3.0-4.8) 06/06/16 07:00 Globulin 3.0 gm/dL 06/06/16 07:00 Albumin/Globulin Ratio 1.1 (1.1-1.8) 06/06/16 07:00 Triglycerides 233 mg/dL (35-160) H 06/01/16 16:00 Cholesterol 119 mg/dL (130-200) L 06/01/16 16:00 LDL Cholesterol Direct 39 mg/dL (0-129) 06/01/16 16:00 HDL Cholesterol 37 mg/dL (29-60) 06/01/16 16:00 Procalcitonin 0.18 NG/ML (0.19-0.49) L 06/01/16 02:30 Arterial Blood Potassium 3.8 mmol/L (3.6-5.2) 06/01/16 10:15 Venous Blood Potassium 4.6 mmol/L (3.6-5.2) 06/01/16 06:46 Urine Color Yellow (YELLOW) 06/01/16 03:00 Urine Appearance Turbid (CLEAR) 06/01/16 03:00 Urine pH 6.0 (4.7-8.0) 06/01/16 03:00 Ur Specific [place] >= 1.030 (1.005-1.035) 06/01/16 03:00 Urine Protein >=300 mg/dL (<30 mg/dL) H 06/01/16 03:00 Urine Glucose (UA) Negative mg/dL (NEGATIVE) 06/01/16 03:00 Urine Ketones Negative mg/dL (NEGATIVE) 06/01/16 03:00 Urine Blood Large (NEGATIVE) H 06/01/16 03:00 Urine Nitrate Negative (NEGATIVE) 06/01/16 03:00 Urine Bilirubin Negative (NEGATIVE) 06/01/16 03:00 Urine Urobilinogen 0.2 E.U./dL (<1 E.U./dL) 06/01/16 03:00 Ur Leukocyte Esterase Negative Madie/uL (NEGATIVE) 06/01/16 03:00 Urine RBC 20 - 25 /hpf (0-2) 06/01/16 03:00 Urine WBC 15 - 20 /hpf (0-6) 06/01/16 03:00 Ur Epithelial Cells 4 - 5 /hpf (0-5) 06/01/16 03:00 Urine Bacteria Mod (NEG) 06/01/16 03:00 Hyaline Casts 0 - 2 /hpf 06/01/16 03:00 Salicylates < 1 mg/dL (2.0-20.0) L 06/01/16 02:30 Urine Opiates Screen Positive (NEGATIVE) H 06/01/16 07:00 Urine Methadone Screen Negative (NEGATIVE) 06/01/16 07:00 Acetaminophen < 10.0 ug/ml (10.0-20.0) L 06/01/16 09:07 Ur Barbiturates Screen Negative (NEGATIVE) 06/01/16 07:00 Ur Phencyclidine Scrn Negative (NEGATIVE) 06/01/16 07:00 Ur Amphetamines Screen Negative (NEGATIVE) 06/01/16 07:00 U Benzodiazepines Scrn Positive (NEGATIVE) H 06/01/16 07:00 U Oth Cocaine Metabols Positive (NEGATIVE) H 06/01/16 07:00 U Cannabinoids Screen Negative (NEGATIVE) 06/01/16 07:00 Alcohol, Quantitative < 10 mg/dL (0-10) 06/01/16 02:30 Hepatitis A IgM Ab Negative (NEGATIVE) 06/01/16 16:00 Hep Bs Antigen Negative (NEGATIVE) 06/01/16 16:00 Hep B Core IgM Ab Negative (NEGATIVE) 06/01/16 16:00 Hepatitis C Antibody Negative (NEGATIVE) 06/01/16 16:00 - Hospital Course Hospital Course: 55 y/o F with PMH of COPD, suicide attempts, and substance abuse presented to the ED on 05/31/16 for cardiac arrest secondary to benzodiazipiene overdose. Pt was found home by family and EMS was called. ACLS was started and pt was found to be in vfib, then shocked by EMS. Pt was given amiodarone and narcan in the field. Pt was brought in unresponsive with pupils displaying sluggish reactivity. Pt was initially placed on pressors, to help with BP. Head CT showed diffuse brain edema. Pt was evaluated by neurology who stated pt had poor prognosis with minimal brain activity and very sluggish pupillary reflexes. Family was contacted and several days later, pt was terminally extubated. She on 06/06/16 from cardiac arrest secondary to benzo overdose complicated by anoxic encephalopathy. Discharge Exam - Additional Findings Additional findings: Pt . Discharge Plan - Follow Up Plan Condition: CRITICAL Disposition: HOME/ ROUTINE Instructions: Sepsis (ED) Referrals: Carleen Peña MD [Primary Care Provider] - <Abelardo Kelly MD - Last Filed: 06/06/16 14:52> Provider - Provider Date of Admission: 06/01/16 02:38 Attending physician: Abelardo Kelly MD Primary care physician: Carleen Peña MD Hospital Course - Lab Results Lab Results: Micro Results 06/01/16 07:26 Nose MRSA Culture (Admit) - Final MRSA DETECTED 06/01/16 07:00 Urine,Clean Catch Urine Culture - Final No Growth (<1,000 CFU/ML) 06/01/16 03:00 Urine Urine Culture - Final No Growth (<1,000 CFU/ML) Most Recent Lab Values WBC 37.5 10^3/ul (4.5-11.0) H* D 06/06/16 07:00 RBC 3.75 10^6/uL (3.5-6.1) 06/06/16 07:00 Hgb 10.8 gm/dL (12.0-16.0) L 06/06/16 07:00 Hct 35.2 % (36.0-48.0) L 06/06/16 07:00 MCV 93.9 fL (80.0-105.0) 06/06/16 07:00 MCH 28.8 pg (25.0-35.0) 06/06/16 07:00 MCHC 30.7 g/dl (31.0-37.0) L 06/06/16 07:00 RDW 16.3 % (11.5-14.5) H 06/06/16 07:00 Plt Count 389 10^3/uL (120.0-450.0) 06/06/16 07:00 MPV 9.7 fl (7.0-11.0) 06/06/16 07:00 Gran % 79.8 % (50.0-68.0) H 06/04/16 06:15 Lymph % (Auto) 12.2 % (22.0-35.0) L 06/04/16 06:15 Ramsey % (Auto) 7.2 % (1.0-6.0) H 06/04/16 06:15 Eos % (Auto) 0.7 % (1.5-5.0) L 06/04/16 06:15 Baso % (Auto) 0.1 % (0.0-3.0) 06/04/16 06:15 Gran # 11.13 (1.4-6.5) H 06/04/16 06:15 Lymph # 1.7 (1.2-3.4) 06/04/16 06:15 Ramsey # 1.0 (0.1-0.6) H 06/04/16 06:15 Eos # 0.1 (0.0-0.7) 06/04/16 06:15 Baso # 0.02 K/mm3 (0.0-2.0) 06/04/16 06:15 Neutrophils % (Manual) 91 % (50.0-70.0) H 06/06/16 07:00 Band Neutrophils % 1 % (0-2) 06/05/16 05:50 Lymphocytes % (Manual) 8 % (22.0-35.0) L 06/06/16 07:00 Monocytes % (Manual) 1 % (1.0-6.0) 06/06/16 07:00 Myelocytes % 1 % 06/05/16 05:50 Toxic Granulation 1+ 06/06/16 07:00 Platelet Evaluation Normal (NORMAL) 06/06/16 07:00 Large Platelets Present 06/01/16 06:46 Giant Platelets Present 06/01/16 06:46 Hypochromasia 1+ 06/01/16 06:46 Poikilocytosis (manual Slight 06/01/16 06:46 Anisocytosis (manual) 1+ 06/06/16 07:00 Tear Drop Cells Slight 06/01/16 06:46 Ovalocytes Slight 06/06/16 07:00 PT 12.1 Seconds (9.9-11.8) H 06/01/16 02:30 INR 1.12 (0.93-1.08) H 06/01/16 02:30 APTT 32.0 Seconds (23.7-30.8) H 06/01/16 02:30 pCO2 31 mm/Hg (35-45) L 06/05/16 05:00 pO2 79.0 mm/Hg (80-100) L 06/05/16 05:00 HCO3 16.7 mmol/L (21-28) L 06/05/16 05:00 ABG pH 7.34 (7.35-7.45) L 06/05/16 05:00 ABG Total CO2 17.7 mmol.L (22-28) L 06/05/16 05:00 ABG O2 Saturation 97.8 % (95-98) 06/05/16 05:00 ABG O2 Content 14.5 ML/dl (15-23) L 06/05/16 05:00 ABG Base Excess -8.1 mmol/L (-2.0-3.0) L 06/05/16 05:00 ABG Hemoglobin 10.8 g/dL (11.7-17.4) L 06/05/16 05:00 ABG Carboxyhemoglobin 2.1 % (0.5-1.5) H 06/05/16 05:00 POC ABG HHb (Measured) 2.1 % (0-5) 06/05/16 05:00 ABG Methemoglobin 1.1 % (0.0-3.0) 06/05/16 05:00 ABG O2 Capacity 14.8 mL/dl (16-24) L 06/05/16 05:00 ABG Potassium 3.8 mmol/L (3.6-5.2) 06/01/16 10:15 VBG pH 7.24 (7.32-7.43) L 06/01/16 06:46 VBG pCO2 61.0 (40-60) H 06/01/16 06:46 VBG HCO3 26.1 mmol/l (21-28) 06/01/16 06:46 VBG Total CO2 28.0 mmol.L (22-28) 06/01/16 06:46 VBG O2 Sat (Calc) 59.3 % (40-65) 06/01/16 06:46 VBG Base Excess -2.5 mmol/L (0.0-2.0) L 06/01/16 06:46 VBG Potassium 4.6 mmol/L (3.6-5.2) 06/01/16 06:46 Hgb O2 Saturation 94.7 % (95.0-98.0) L 06/05/16 05:00 Sodium 144.0 mmol/L (132-148) 06/01/16 10:15 Chloride 117.0 mmol/L (98-107) H 06/01/16 10:15 Glucose 182 mg/dl (65-105) H 06/01/16 10:15 Lactate 1.2 mmol/L (0.7-2.1) 06/01/16 10:15 Mechanical Rate 10 06/01/16 10:15 FiO2 40.0 % 06/05/16 05:00 Tidal Volume 440 06/01/16 10:15 PEEP 5 06/01/16 10:15 Sodium 150 mmol/L (132-148) H 06/06/16 07:00 Potassium 4.3 mmol/L (3.6-5.0) 06/06/16 07:00 Chloride 118 mmol/L (98-107) H 06/06/16 07:00 Carbon Dioxide 17 mmol/L (21-33) L 06/06/16 07:00 Anion Gap 19 (10-20) 06/06/16 07:00 BUN 27 mg/dL (7-21) H 06/06/16 07:00 Creatinine 1.1 mg/dL (0.5-1.4) 06/06/16 07:00 Est GFR ( Amer) > 60 06/06/16 07:00 Est GFR (Non-Af Amer) 52 06/06/16 07:00 POC Glucose (mg/dL) 121 mg/dL (65-110) H 06/06/16 06:12 Random Glucose 120 mg/dL (70-110) H 06/06/16 07:00 Calcium 8.3 mg/dL (8.4-10.5) L 06/06/16 07:00 Phosphorus 4.2 mg/dL (2.5-4.5) 06/06/16 07:00 Magnesium 1.7 mg/dL (1.7-2.2) 06/06/16 07:00 Total Bilirubin 0.5 mg/dL (0.2-1.3) 06/06/16 07:00 AST 78 U/L (15-39) H 06/06/16 07:00 ALT 37 U/L (7-56) 06/06/16 07:00 Alkaline Phosphatase 89 U/L (38-133) 06/06/16 07:00 Lactate Dehydrogenase 2463 U/L (333-699) H 06/01/16 16:00 Total Creatine Kinase 2950 U/L (35-230) H 06/01/16 16:00 CK-MB (CK-2) 16.5 ng/mL (0.0-3.6) H 06/01/16 16:00 CK-MB (CK-2) % 0.6 % (2.5-3.0) L 06/01/16 16:00 Troponin I 0.25 ng/mL H* D 06/04/16 06:15 NT-Pro-B Natriuret Pep 85.1 pg/mL (0-450) 06/01/16 02:30 Total Protein 6.4 g/dL (5.8-8.3) 06/06/16 07:00 Albumin 3.4 g/dL (3.0-4.8) 06/06/16 07:00 Globulin 3.0 gm/dL 06/06/16 07:00 Albumin/Globulin Ratio 1.1 (1.1-1.8) 06/06/16 07:00 Triglycerides 233 mg/dL (35-160) H 06/01/16 16:00 Cholesterol 119 mg/dL (130-200) L 06/01/16 16:00 LDL Cholesterol Direct 39 mg/dL (0-129) 06/01/16 16:00 HDL Cholesterol 37 mg/dL (29-60) 06/01/16 16:00 Procalcitonin 0.18 NG/ML (0.19-0.49) L 06/01/16 02:30 Arterial Blood Potassium 3.8 mmol/L (3.6-5.2) 06/01/16 10:15 Venous Blood Potassium 4.6 mmol/L (3.6-5.2) 06/01/16 06:46 Urine Color Yellow (YELLOW) 06/01/16 03:00 Urine Appearance Turbid (CLEAR) 06/01/16 03:00 Urine pH 6.0 (4.7-8.0) 06/01/16 03:00 Ur Specific [place] >= 1.030 (1.005-1.035) 06/01/16 03:00 Urine Protein >=300 mg/dL (<30 mg/dL) H 06/01/16 03:00 Urine Glucose (UA) Negative mg/dL (NEGATIVE) 06/01/16 03:00 Urine Ketones Negative mg/dL (NEGATIVE) 06/01/16 03:00 Urine Blood Large (NEGATIVE) H 06/01/16 03:00 Urine Nitrate Negative (NEGATIVE) 06/01/16 03:00 Urine Bilirubin Negative (NEGATIVE) 06/01/16 03:00 Urine Urobilinogen 0.2 E.U./dL (<1 E.U./dL) 06/01/16 03:00 Ur Leukocyte Esterase Negative Madie/uL (NEGATIVE) 06/01/16 03:00 Urine RBC 20 - 25 /hpf (0-2) 06/01/16 03:00 Urine WBC 15 - 20 /hpf (0-6) 06/01/16 03:00 Ur Epithelial Cells 4 - 5 /hpf (0-5) 06/01/16 03:00 Urine Bacteria Mod (NEG) 06/01/16 03:00 Hyaline Casts 0 - 2 /hpf 06/01/16 03:00 Salicylates < 1 mg/dL (2.0-20.0) L 06/01/16 02:30 Urine Opiates Screen Positive (NEGATIVE) H 06/01/16 07:00 Urine Methadone Screen Negative (NEGATIVE) 06/01/16 07:00 Acetaminophen < 10.0 ug/ml (10.0-20.0) L 06/01/16 09:07 Ur Barbiturates Screen Negative (NEGATIVE) 06/01/16 07:00 Ur Phencyclidine Scrn Negative (NEGATIVE) 06/01/16 07:00 Ur Amphetamines Screen Negative (NEGATIVE) 06/01/16 07:00 U Benzodiazepines Scrn Positive (NEGATIVE) H 06/01/16 07:00 U Oth Cocaine Metabols Positive (NEGATIVE) H 06/01/16 07:00 U Cannabinoids Screen Negative (NEGATIVE) 06/01/16 07:00 Alcohol, Quantitative < 10 mg/dL (0-10) 06/01/16 02:30 Hepatitis A IgM Ab Negative (NEGATIVE) 06/01/16 16:00 Hep Bs Antigen Negative (NEGATIVE) 06/01/16 16:00 Hep B Core IgM Ab Negative (NEGATIVE) 06/01/16 16:00 Hepatitis C Antibody Negative (NEGATIVE) 06/01/16 16:00 Attending/Attestation - Attestation I have personally seen and examined this patient.: Yes I have fully participated in the care of the patient.: Yes I have reviewed all pertinent clinical information, including history, physical exam and plan: Yes Notes (Text): Patient was seen and examined with medical administrative .Agreed with resident assessment and plan. 55 F with SP cardiac arrest,anoxic encephlopathy, Resp Failure, was extubated in front of family and was started on comfort measure.Patient after extubation.She was DNR /DNI .no code was called, she was pronounced by ICU attending.
[2016-06-06 15:46] VITALS: BP 149/91; PULSE 131; O2SAT 98
--- NOTE | 2016-06-06 17:58 | CP.PCM.PN ---
Subjective - Date & Time of Evaluation Date of Evaluation: 06/06/16 Time of Evaluation: 11:30 - Subjective Subjective: Infectious Disease Follow Up: June 06, 2016 55 yo female with multiple medical problems including rheumatoid arthritis and rheumatoid lung disease, hypertension, end stage COPD, multiple UTIs, and endometriosis. The patient also has an extensive history of substance abuse to the point where she attempted to sniff a powdered substance when she was in the [facility] in March 2016. The patient had cardiac arrest at home. She was down for 10 minutes when EMS arrived and had CPR for 37 minutes. Patient was found in asystole by EMS and gave 4 rounds of epinephrine until pulse returned which was V. fib. EMS shocked patient. As per family, empty bottles of tamezepam and cough medicine with codeine. Patient is currently intubated and ventilated. Extremely poor prognosis. No real improvement in the patient's mentation. Leukocytosis elevated to 37.5 today. All test findings strongly suggesting anoxic encephalopathy. Prognosis is dismal. Terminally extubated today and promptly almost as soon as she was extubated. Objective - Vital Signs/Intake and Output Vital Signs (last 24 hours): Temp Pulse Resp BP Pulse Ox 98.8 F 131 H 27 H 149/91 H 98 06/05/16 13:29 06/06/16 11:00 06/06/16 07:53 06/06/16 11:00 06/06/16 11:00 Intake and Output: 06/06/16 06/06/16 06:59 18:59 Intake Total 2050 Output Total 1000 Balance 1050 - Medications Medications: Current Medications Acetaminophen (Tylenol 650 Mg Supp) 650 mg RC Q6H PRN PRN Reason: Fever >100.4 F Levetiracetam (Keppra 500mg Ivpb) 100 mls @ 400 mls/hr IV Q12 YASSINE Last Admin: 06/06/16 09:35 Dose: 400 mls/hr Morphine Sulfate (Morphine [place] Hand 1 Mg/Ml) 25 mls @ 2 mls/hr IV PRN PRN; Protocol ; 2 MG/HR PRN Reason: MANAGEMENT [employer]NER PER MD ORDER Scopolamine (Transderm-Scop) 1 patch TD Q3D YASSINE - Labs Labs: 06/06/16 07:00 06/06/16 07:00 PT 12.1 Seconds (9.9-11.8) H 06/01/16 02:30 INR 1.12 (0.93-1.08) H 06/01/16 02:30 APTT 32.0 Seconds (23.7-30.8) H 06/01/16 02:30 - Constitutional Appears: Chronically Ill - Head Exam Additional comments: intubated and ventilated - Eye Exam Additional comments: pinpoint pupils and sluggish - ENT Exam Additional comments: intubated and ventilated - Respiratory Exam Respiratory Exam: Decreased Breath Sounds. absent: Rales, Rhonchi, Wheezes - GI/Abdominal Exam GI & Abdominal Exam: Distended, Soft. absent: Tenderness - Extremities Exam Extremities Exam: Full ROM, Normal Inspection - Neurological Exam Neurological Exam: Alert, Awake, CN II-XII Intact, Oriented x3 Assessment and Plan - Assessment and Plan (Free Text) Assessment: 55 yo female found unresponsive at home and down for at least 47 minutes pulseless. The patient had a cardiac arrest. The patient is currently intubated and ventilated. Very poorly responsive. Pupils pinpoint and sluggish. The patient has leukocytosis up to 22. Started on antibiotics of Vancomycin currently. Very poor prognosis at this point. Leukocytosis can be due to the cardiac arrest, anoxia, or infection. Multiple medical issues. Supportive care. Cardiac Shock more likely than Septic Shock. Overdose on Codeine and Benzodiazepene. Cocaine Use (still active user). Acute kidney injury likely secondary to hypoperfusion. Extremely poor prognosis for this patient at this time. Will continue with Vancomycin and Zosyn for treatment if there is an infectious issue. Leukocytosis improved to 14.0 today. Dismal prognosis. [facility] came to evaluate the patient yesterday. The patient with no change in mental function. Likely severe anoxic encephalopathy. Patient meeting criteria for brain . Dismal prognosis. Patient family has decided on comfort and terminal care at this point. There has been no mental improvement in the patient at all through this hospitalization. Terminal extubation 11:42 AM today and patient promptly a few minutes later. Thank you for allowing me to participate in the care of the patient, we will follow with you.
== END 2016-06-06 11:42 | DRG 917 ==
LOC: ED 01:51 → ERH 02:38 → CCU 04:18
PROVIDERS: ADMIT Internal Medicine; ATTEND Internal Medicine
PROC: 5A1955Z Respiratory Ventilation, Greater than 96 Consecutive Hours (ICD-10-PCS; principal; 2016-06-01)
PROC: 0BH17EZ Insertion of Endotracheal Airway into Trachea, Via Natural or Artificial Opening (ICD-10-PCS; 2016-06-01)
PROC: 06HM33Z Insertion of Infusion Device into Right Femoral Vein, Percutaneous Approach (ICD-10-PCS; 2016-06-01)
PROC: 3E0F7GC Introduction of Other Therapeutic Substance into Respiratory Tract, Via Natural or Artificial Opening (ICD-10-PCS; 2016-06-02)
DX: T42.4X2A Poisoning by benzodiazepines, intentional self-harm, initial encounter (principal); A41.9 Sepsis, unspecified organism; G93.6 Cerebral edema; I49.01 Ventricular fibrillation; J96.91 Respiratory failure, unspecified with hypoxia; G93.1 Anoxic brain damage, not elsewhere classified; R65.21 Severe sepsis with septic shock; J44.1 Chronic obstructive pulmonary disease with (acute) exacerbation; N17.9 Acute kidney failure, unspecified; E87.2 Acidosis; T40.2X2A Poisoning by other opioids, intentional self-harm, initial encounter; T40.5X2A Poisoning by cocaine, intentional self-harm, initial encounter; R57.0 Cardiogenic shock; R56.9 Unspecified convulsions; D64.9 Anemia, unspecified; F32.9 Major depressive disorder, single episode, unspecified; F11.10 Opioid abuse, uncomplicated; M05.10 Rheumatoid lung disease with rheumatoid arthritis of unspecified site; N80.9 Endometriosis, unspecified; I10 Essential (primary) hypertension; I25.5 Ischemic cardiomyopathy; G25.3 Myoclonus; E87.6 Hypokalemia; Z66 Do not resuscitate; Z87.891 Personal history of nicotine dependence; Z91.5 Personal history of self-harm; Z87.440 Personal history of urinary (tract) infections